=== PATIENT | male | born 1955 | race Caucasian/White ===

== ENCOUNTER → 2017-11-24 | Outpatient (CLI) | payer MEDICARE, OTHER ==
[~2017-11-24] MED LIST: ANTIBIOTIC; Antivert25 MG PO; BACL10 PO; BACL20 PO; CIPRO500 MG PO; CITA10S; CLON.1 PO; CYCL10 PO; FERR325; Flagyl500 MG PO; GABA300; HYDCOR1TC TOP; HYDPAM25 PO; HYDRA50 PO; HYOS.125 SL; HYOSCYAMINE0.375 M1 PO; Hygroton50 MG; MEDICAL MARIJUANA; NEOPOLHCSU LEFTEAR; OLAN10 PO; OLAN20 MM; OMEPPI 40 MG-11 EACH PO; OXYC5; OXYC80ER; OXYM.05NI; PROM25; PROM25 PO; PROM25S; Percocet 5-3251 EACH PO; SULTRISS PO; TAMS.4ER PO; TOBR.3OPSO; TOLT4 PO; Zofran Odt8 MG SL; Zyprexa15 MG PO
== END ==
LOC: LAB SRC 11:50
DX: S91.302A Unspecified open wound, left foot, initial encounter (principal)
CPT/HCPCS: 87070; 87077; 87147; 87186; 87205

== ENCOUNTER → 2017-12-28 | Outpatient (CLI) | payer MEDICARE, OTHER | END | disposition home or self-care (01) | LOC: LAB 10:12 | DX: L98.499 Non-pressure chronic ulcer of skin of other sites with unspecified severity (principal) | CPT/HCPCS: 87070; 87077; 87147; 87186; 87205 ==

== ENCOUNTER → 2018-02-15 | Outpatient (CLI) | payer MEDICARE, OTHER ==
[~2018-02-15] MED LIST changes: -GABA300; -NEOPOLHCSU LEFTEAR; -OLAN10 PO; -OMEPPI 40 MG-11 EACH PO; -OXYM.05NI; -Percocet 5-3251 EACH PO; -TOLT4 PO
== END ==
LOC: LAB SHORT 13:42 → LAB EV 13:42
DX: L03.119 Cellulitis of unspecified part of limb (principal)
CPT/HCPCS: 87070; 87077; 87147; 87186; 87205

== ENCOUNTER → 2018-02-24 | Outpatient (CLI) | payer MEDICARE, OTHER | END | disposition home or self-care (01) | LOC: LAB SHORT 17:44 → LAB 17:44 | DX: S91.302A Unspecified open wound, left foot, initial encounter (principal) | CPT/HCPCS: 87070; 87075; 87077; 87186; 87205 ==

== ENCOUNTER 2018-05-04 16:46 | Emergency (ER) | payer MEDICARE, OTHER ==
[~2018-05-04] VITALS: Ht 182.9 cm; Wt 59.0 kg
[2018-05-04] MEDS ORDERED: BACL10 PO (17:22)
[2018-05-04] MEDS ORDERED: OLAN10 PO (17:22)
[2018-05-04] MEDS ORDERED: HYOS.125 SL (17:23)
[2018-05-04] MEDS ORDERED: OMEPPI 40 MG-11 EACH PO (17:24)
[2018-05-04] MEDS ORDERED: TOLT4 PO (17:25)
[2018-05-04] MEDS ORDERED: NEOPOLHCSU LEFTEAR (17:36)
== END 2018-05-04 17:58 | disposition home or self-care (01) ==
LOC: ER 16:46
DX: H60.92 Unspecified otitis externa, left ear (principal); Z88.8 Allergy status to other drugs, medicaments and biological substances; Z79.899 Other long term (current) drug therapy; F32.9 Major depressive disorder, single episode, unspecified; F41.9 Anxiety disorder, unspecified; F17.200 Nicotine dependence, unspecified, uncomplicated
CPT/HCPCS: 99282

== ENCOUNTER → 2018-06-22 | Outpatient (CLI) | payer MEDICARE, OTHER ==
[~2018-06-22] MED LIST changes: +NEOPOLHCSU LEFTEAR; +OLAN10 PO; +OMEPPI 40 MG-11 EACH PO; +TOLT4 PO
== END | disposition home or self-care (01) ==
LOC: LAB SHORT 08:42 → LAB 08:42
DX: L08.0 Pyoderma (principal)
CPT/HCPCS: 87070; 87077; 87147; 87186; 87205

== ENCOUNTER 2018-07-02 10:14 | Emergency (ER) | payer MEDICARE, OTHER ==
[~2018-07-02] VITALS: Ht 182.9 cm; Wt 54.4 kg
[2018-07-02] MEDS ORDERED: OXYM.05NI (10:56)
[2018-07-02] MEDS ORDERED: Percocet 5-3251 EACH PO (14:14)
== END 2018-07-02 11:01 | disposition home or self-care (01) ==
LOC: ER 10:14
DX: R04.0 Epistaxis (principal); Z88.8 Allergy status to other drugs, medicaments and biological substances; Z79.899 Other long term (current) drug therapy; F32.9 Major depressive disorder, single episode, unspecified; F41.9 Anxiety disorder, unspecified; F17.200 Nicotine dependence, unspecified, uncomplicated
CPT/HCPCS: 99283

== ENCOUNTER 2018-07-02 13:30 | Emergency (ER) | payer MEDICARE, OTHER ==
[~2018-07-02] VITALS: Ht 182.9 cm; Wt 54.4 kg
[~2018-07-02 13:30] MED LIST changes: +OXYM.05NI
[2018-07-02] MEDS ORDERED: Percocet 5-3251 EACH PO (14:14)
== END 2018-07-02 14:55 | disposition left against medical advice (07) ==
LOC: ER 13:30
DX: R04.0 Epistaxis (principal); Z88.8 Allergy status to other drugs, medicaments and biological substances; Z79.899 Other long term (current) drug therapy
CPT/HCPCS: 99283-25

== ENCOUNTER 2018-09-04 18:15 | Emergency (ER) | payer MEDICARE, OTHER ==
[~2018-09-04] VITALS: Ht 182.9 cm; Wt 52.2 kg
[~2018-09-04 18:15] MED LIST changes: +Percocet 5-3251 EACH PO
[2018-09-04 18:50] LABS: BASOPHILS ABSOLUTE AUTO 0.03 K/mm3 (0.00-0.23); BASOPHILS PERCENT AUTO 0 % (0-2); EOSINOPHILS ABSOLUTE AUTO 0.09 K/mm3 (0.00-0.68); EOSINOPHILS PERCENT AUTO 1 % (0-6); Hematocrit 46.5 % (37.0-53.0); Hemoglobin 16.2 g/dL (13.5-17.5); IMMATURE GRAN ABSOLUTE AUTO 0.01 K/mm3 (0.00-0.10); IMMATURE GRAN PERCENT AUTO 0 % (0-1); LYMPHOCYTES ABSOLUTE AUTO 1.19 K/mm3 (0.84-5.20); LYMPHOCYTES PERCENT AUTO 16 % (21-46); MONOCYTES ABSOLUTE AUTO 0.63 K/mm3 (0.16-1.47); MONOCYTES PERCENT AUTO 8 % (4-13); Mean Corpuscular HGB 31.3 pg (26.0-34.0); Mean Corpuscular HGB Conc 34.8 g/dL (31.5-36.5); Mean Corpuscular Volume 90 fL (80-100); Mean Platelet Volume 8.8 fL (9.1-12.4); NEUTROPHILS ABSOLUTE AUTO 5.72 K/mm3 (1.96-9.15); NEUTROPHILS PERCENT AUTO 75 % (41-73); Platelet Count 314 K/mm3 (150-400); RDW Coefficient Variation 12.8 % (11.7-14.2); RDW Standard Deviation 42.5 fL (35.1-46.3); Red Blood Cell Count 5.17 M/mm3 (4.30-5.90); White Blood Cell Count 7.67 K/mm3 (4.00-11.30)
[2018-09-04 19:06] LABS: Alanine Aminotransfer (ALT/SGP 24 U/L (12-78); Albumin, Blood 4.3 g/dL (3.4-5.0); Albumin/Globulin Ratio 1.2 (0.8-1.8); Alk Phos 93 U/L (50-136); Anion Gap 9 mmol/L (6-16); Aspartate Aminotrans (AST/SGOT 17 U/L (12-37); Bilirubin, Total 1.5 mg/dL (0.1-1.0); Blood Urea Nitrogen 13 mg/dL (8-24); Bun/Creatinine Ratio 19.9 (12.0-20.0); CO2, Blood 26 mmol/L (21-32); Calcium, Blood 9.8 mg/dL (8.5-10.1); Chloride, Blood 103 mmol/L (98-108); Creatinine, Blood 0.65 mg/dL (0.60-1.20); Globulin, Blood 3.6 g/dL (2.2-4.0); Glomerular Filtration Rate >60 (60-); Glucose, Blood 123 mg/dL (70-99); Potassium, Blood 3.3 mmol/L (3.5-5.5); Sodium, Blood 138 mmol/L (136-145); Total Protein, Blood 7.9 g/dL (6.4-8.2)
[2018-09-04] MEDS ORDERED: GABA300 (19:35)
== END 2018-09-04 19:46 | disposition home or self-care (01) ==
LOC: ER 18:15
PROVIDERS: Emergency Medicine
DX: R53.1 Weakness (principal); Z88.8 Allergy status to other drugs, medicaments and biological substances; Z79.899 Other long term (current) drug therapy; F17.200 Nicotine dependence, unspecified, uncomplicated
CPT/HCPCS: 36415; 80053; 85025; 93005; 93010; 99283-25

== ENCOUNTER → 2018-10-11 | Outpatient (CLI) | payer MEDICARE, OTHER ==
[~2018-10-11] MED LIST changes: +GABA300
== END | disposition home or self-care (01) ==
LOC: PLD 08:13 → LAB SHORT 08:13
DX: L98.9 Disorder of the skin and subcutaneous tissue, unspecified (principal); L90.5 Scar conditions and fibrosis of skin
CPT/HCPCS: 88305; 88312

== ENCOUNTER 2019-05-04 18:50 | Emergency (ER) | payer MEDICARE, OTHER ==
[~2019-05-04] VITALS: Ht 182.9 cm; Wt 50.8 kg
[~2019-05-04 18:50] MED LIST changes: -GABA300; +GABA300 PO
[2019-05-04] MEDS ORDERED: BACLOFEN5 MG PO (19:26)
[2019-05-04] MEDS ORDERED: OLAN2.5 PO (19:27)
[2019-05-04] MEDS ORDERED: PANT20 PO (19:27)
== END 2019-05-04 20:27 | disposition home or self-care (01) ==
LOC: ER 18:50
DX: S60.222A Contusion of left hand, initial encounter (principal); Z88.8 Allergy status to other drugs, medicaments and biological substances; Z79.899 Other long term (current) drug therapy; G62.9 Polyneuropathy, unspecified; W18.30XA Fall on same level, unspecified, initial encounter
CPT/HCPCS: 29125; 73130; 99283-25; L3917

== ENCOUNTER 2019-07-10 19:59 | Emergency (ER) | payer MEDICARE, OTHER ==
[~2019-07-10] VITALS: Ht 182.9 cm; Wt 55.3 kg
[~2019-07-10 19:59] MED LIST changes: +BACLOFEN5 MG PO; +OLAN2.5 PO; +PANT20 PO
== END 2019-07-10 21:30 | disposition left against medical advice (07) ==
LOC: ER 19:59
DX: I82.432 Acute embolism and thrombosis of left popliteal vein (principal); Z87.442 Personal history of urinary calculi; F17.200 Nicotine dependence, unspecified, uncomplicated; Z88.8 Allergy status to other drugs, medicaments and biological substances; Z79.899 Other long term (current) drug therapy
CPT/HCPCS: 93971; 99282

== ENCOUNTER 2019-07-11 12:04 | Emergency (ER) | payer MEDICARE, OTHER ==
[~2019-07-11] VITALS: Ht 182.9 cm; Wt 55.7 kg
[2019-07-11 12:45] LABS: BASOPHILS ABSOLUTE AUTO 0.06 K/mm3 (0.00-0.23); BASOPHILS PERCENT AUTO 1 % (0-2); EOSINOPHILS ABSOLUTE AUTO 0.13 K/mm3 (0.00-0.68); EOSINOPHILS PERCENT AUTO 2 % (0-6); Hematocrit 37.1 % (37.0-53.0); Hemoglobin 11.9 g/dL (13.5-17.5); IMMATURE GRAN ABSOLUTE AUTO 0.02 K/mm3 (0.00-0.10); IMMATURE GRAN PERCENT AUTO 0 % (0-1); LYMPHOCYTES ABSOLUTE AUTO 1.12 K/mm3 (0.84-5.20); LYMPHOCYTES PERCENT AUTO 16 % (21-46); MONOCYTES ABSOLUTE AUTO 0.72 K/mm3 (0.16-1.47); MONOCYTES PERCENT AUTO 10 % (4-13); Mean Corpuscular HGB 26.8 pg (26.0-34.0); Mean Corpuscular HGB Conc 32.1 g/dL (31.5-36.5); Mean Corpuscular Volume 84 fL (80-100); Mean Platelet Volume 8.8 fL (9.1-12.4); NEUTROPHILS ABSOLUTE AUTO 4.85 K/mm3 (1.96-9.15); NEUTROPHILS PERCENT AUTO 70 % (41-73); Platelet Count 322 K/mm3 (150-400); RDW Coefficient Variation 14.7 % (11.7-14.2); RDW Standard Deviation 45.1 fL (35.1-46.3); Red Blood Cell Count 4.44 M/mm3 (4.30-5.90)
[2019-07-11 12:59] LABS: International Normalized Ratio 0.97; Prothrombin Time Results 10.3 Sec (9.7-11.5)
[2019-07-11 13:07] LABS: Alanine Aminotransfer (ALT/SGP 22 U/L (12-78); Albumin, Blood 3.5 g/dL (3.4-5.0); Alk Phos 150 U/L (50-136); Anion Gap 7 mmol/L (6-16); Aspartate Aminotrans (AST/SGOT 16 U/L (12-37); Bilirubin, Total 0.7 mg/dL (0.1-1.0); Blood Urea Nitrogen 22 mg/dL (8-24); Bun/Creatinine Ratio 27.9 (12.0-20.0); CO2, Blood 25 mmol/L (21-32); Calcium, Blood 9.3 mg/dL (8.5-10.1); Chloride, Blood 108 mmol/L (98-108); Creatinine, Blood 0.79 mg/dL (0.60-1.20); Globulin, Blood 3.5 g/dL (2.2-4.0); Glomerular Filtration Rate >60 (60-); Glucose, Blood 79 mg/dL (70-99); Potassium, Blood 4.1 mmol/L (3.5-5.5); Sodium, Blood 140 mmol/L (136-145)
== END 2019-07-11 14:59 | disposition home or self-care (01) ==
LOC: ER 12:04
PROVIDERS: Physician Assistant
DX: I82.402 Acute embolism and thrombosis of unspecified deep veins of left lower extremity (principal); F17.200 Nicotine dependence, unspecified, uncomplicated; Z87.442 Personal history of urinary calculi
CPT/HCPCS: 36415; 70450; 80053; 85025; 85610; 99284-25

== ENCOUNTER 2019-07-28 14:53 | Emergency (ER) | payer MEDICARE, OTHER ==
[~2019-07-28] VITALS: Ht 182.9 cm; Wt 54.4 kg
[2019-07-28 15:36] LABS: BASOPHILS ABSOLUTE AUTO 0.05 K/mm3 (0.00-0.23); BASOPHILS PERCENT AUTO 1 % (0-2); EOSINOPHILS ABSOLUTE AUTO 0.19 K/mm3 (0.00-0.68); EOSINOPHILS PERCENT AUTO 2 % (0-6); Hematocrit 38.5 % (37.0-53.0); Hemoglobin 12.5 g/dL (13.5-17.5); IMMATURE GRAN ABSOLUTE AUTO 0.03 K/mm3 (0.00-0.10); IMMATURE GRAN PERCENT AUTO 0 % (0-1); LYMPHOCYTES ABSOLUTE AUTO 1.71 K/mm3 (0.84-5.20); LYMPHOCYTES PERCENT AUTO 18 % (21-46); MONOCYTES ABSOLUTE AUTO 1.27 K/mm3 (0.16-1.47); MONOCYTES PERCENT AUTO 14 % (4-13); Mean Corpuscular HGB 27.2 pg (26.0-34.0); Mean Corpuscular HGB Conc 32.5 g/dL (31.5-36.5); Mean Corpuscular Volume 84 fL (80-100); Mean Platelet Volume 8.8 fL (9.1-12.4); NEUTROPHILS ABSOLUTE AUTO 6.09 K/mm3 (1.96-9.15); NEUTROPHILS PERCENT AUTO 65 % (41-73); Platelet Count 323 K/mm3 (150-400); RDW Coefficient Variation 15.1 % (11.7-14.2); RDW Standard Deviation 46.1 fL (35.1-46.3); Red Blood Cell Count 4.59 M/mm3 (4.30-5.90); White Blood Cell Count 9.34 K/mm3 (4.00-11.30)
[2019-07-28 16:01] LABS: Alanine Aminotransfer (ALT/SGP 20 U/L (12-78); Albumin, Blood 3.5 g/dL (3.4-5.0); Alk Phos 119 U/L (50-136); Anion Gap 5 mmol/L (6-16); Aspartate Aminotrans (AST/SGOT 17 U/L (12-37); Bilirubin, Total 0.5 mg/dL (0.1-1.0); Blood Urea Nitrogen 33 mg/dL (8-24); Bun/Creatinine Ratio 29.5 (12.0-20.0); CO2, Blood 27 mmol/L (21-32); Calcium, Blood 9.5 mg/dL (8.5-10.1); Chloride, Blood 104 mmol/L (98-108); Creatinine, Blood 1.12 mg/dL (0.60-1.20); Globulin, Blood 3.6 g/dL (2.2-4.0); Glomerular Filtration Rate >60 (60-); Glucose, Blood 86 mg/dL (70-99); Potassium, Blood 3.8 mmol/L (3.5-5.5); Sodium, Blood 136 mmol/L (136-145); Total Protein, Blood 7.1 g/dL (6.4-8.2)
[2019-07-28] MEDS ORDERED: Flagyl500 MG PO (18:19)
[2019-07-28] MEDS ORDERED: Cipro500 MG PO (18:19)
== END 2019-07-28 18:49 | disposition home or self-care (01) ==
LOC: ER 14:53
PROVIDERS: Physician Assistant
DX: K44.9 Diaphragmatic hernia without obstruction or gangrene (principal); F32.9 Major depressive disorder, single episode, unspecified; F41.9 Anxiety disorder, unspecified; F20.0 Paranoid schizophrenia; F17.200 Nicotine dependence, unspecified, uncomplicated; D64.9 Anemia, unspecified; Z87.442 Personal history of urinary calculi; Z88.8 Allergy status to other drugs, medicaments and biological substances; Z79.899 Other long term (current) drug therapy
CPT/HCPCS: 36415; 71045; 74177; 80053; 83690; 85025; 86850; 86900; 86901; 93005; 93010; 99284-25; Q9967

== ENCOUNTER 2019-08-04 15:34 | Day surgery (SDC) | payer MEDICARE, OTHER ==
[~2019-08-04] VITALS: Wt 57.8 kg
[~2019-08-04 15:34] MED LIST changes: +Cipro500 MG PO
[2019-08-04] MEDS ORDERED: GABA100 PO (16:00)
--- NOTE | 2019-08-04 16:07 | NUR ---
DOSE GIVEN WAS 85MG.
[2019-08-04] MEDS ORDERED: DICLO GEL1 EACH TOP (16:41)
[2019-08-04] MEDS ORDERED: Prinivil10 MG PO (16:42)
[2019-08-04] MEDS ORDERED: FURO20 PO (16:44)
[2019-08-04] MEDS ORDERED: K-Dur20 MEQ PO (16:45)
[2019-08-04] MEDS ORDERED: WARF5 PO (16:46)
[2019-08-04] MEDS ORDERED: SPIR25 PO (16:47)
== END 2019-08-04 16:25 | disposition home or self-care (01) ==
LOC: ATC 15:34
DX: I82.402 Acute embolism and thrombosis of unspecified deep veins of left lower extremity (principal); I10 Essential (primary) hypertension; D50.9 Iron deficiency anemia, unspecified; M17.0 Bilateral primary osteoarthritis of knee; N40.0 Benign prostatic hyperplasia without lower urinary tract symptoms; Z86.73 Personal history of transient ischemic attack (TIA), and cerebral infarction without residual deficits; Z79.899 Other long term (current) drug therapy; Z79.01 Long term (current) use of anticoagulants
CPT/HCPCS: 96372; J1650

== ENCOUNTER 2019-08-05 07:24 | Day surgery (SDC) | payer MEDICARE, OTHER ==
[~2019-08-05 07:24] MED LIST changes: +DICLO GEL1 EACH TOP; +FURO20 PO; +GABA100 PO; +K-Dur20 MEQ PO; +Prinivil10 MG PO; +SPIR25 PO; +WARF5 PO
--- NOTE | 2019-08-05 09:07 | NUR ---
INR TODAY WAS 1.1.
== END 2019-08-05 08:59 | disposition home or self-care (01) ==
LOC: ATC 07:24
DX: I82.402 Acute embolism and thrombosis of unspecified deep veins of left lower extremity (principal); I10 Essential (primary) hypertension; D50.9 Iron deficiency anemia, unspecified; M17.0 Bilateral primary osteoarthritis of knee; N40.0 Benign prostatic hyperplasia without lower urinary tract symptoms; Z86.73 Personal history of transient ischemic attack (TIA), and cerebral infarction without residual deficits; Z79.899 Other long term (current) drug therapy; Z79.01 Long term (current) use of anticoagulants; Z88.8 Allergy status to other drugs, medicaments and biological substances
CPT/HCPCS: 36416; 51798; 85610; 96372; J1650

== ENCOUNTER 2019-08-06 08:24 | Day surgery (SDC) | payer MEDICARE, OTHER ==
--- NOTE | 2019-07-28 15:49 | NUR ---
Leslye in admitting called and stated pt is in the ER. Order for lovenox faxed to ER. Spoke with Rc in ER who stated she will place order on pt's chart so he can get his lovenox injection in the ER today.
--- NOTE | 2019-08-06 09:12 | NUR ---
FINGERSTICK INR = 1.2 TODAY.
[2019-08-07] MEDS ORDERED: ENOX100I SC (09:20)
== END 2019-08-06 08:40 | disposition home or self-care (01) ==
LOC: ATC 08:24
DX: I82.402 Acute embolism and thrombosis of unspecified deep veins of left lower extremity (principal); I10 Essential (primary) hypertension; D50.9 Iron deficiency anemia, unspecified; Z88.8 Allergy status to other drugs, medicaments and biological substances
CPT/HCPCS: 36416; 85610; 96372; J1650

== ENCOUNTER 2019-08-07 01:06 | Day surgery (SDC) | payer MEDICARE, OTHER ==
[2019-08-07] MEDS ORDERED: ENOX100I SC (09:20)
--- NOTE | 2019-08-07 09:22 | NUR ---
FINGERSTICK INR TODAY IS 1.8 MEDICATION GIVEN PER ORDERS
== END 2019-08-07 22:38 | disposition home or self-care (01) ==
LOC: ATC 01:06
DX: I82.402 Acute embolism and thrombosis of unspecified deep veins of left lower extremity (principal); I10 Essential (primary) hypertension; N40.0 Benign prostatic hyperplasia without lower urinary tract symptoms; G60.9 Hereditary and idiopathic neuropathy, unspecified; F51.05 Insomnia due to other mental disorder; K58.9 Irritable bowel syndrome, unspecified; N52.9 Male erectile dysfunction, unspecified; F42.9 Obsessive-compulsive disorder, unspecified; D50.9 Iron deficiency anemia, unspecified; Z79.01 Long term (current) use of anticoagulants; Z79.899 Other long term (current) drug therapy; Z88.8 Allergy status to other drugs, medicaments and biological substances
CPT/HCPCS: 36416; 85610; 96372; J1650

== ENCOUNTER 2019-08-08 00:41 | Day surgery (SDC) | payer MEDICARE, OTHER ==
[~2019-08-08 00:41] MED LIST changes: +ENOX100I SC
--- NOTE | 2019-08-08 09:05 | NUR ---
PT STATES HE IS VERY ILL TODAY. HE IS HAVING ALOT OF PAIN IN ABD. PT STATES HE THINKS HE IS TAKING TOO MANY ANTIBIOTICS. INSTRUCTED TO GO TO ER IF PAIN GETS WORST. PT STATES HE HAS PANCREATITIS.
== END 2019-08-08 09:05 | disposition home or self-care (01) ==
LOC: ATC 00:41
DX: I82.402 Acute embolism and thrombosis of unspecified deep veins of left lower extremity (principal); I10 Essential (primary) hypertension; D50.9 Iron deficiency anemia, unspecified; F45.0 Somatization disorder; F42.9 Obsessive-compulsive disorder, unspecified; N52.9 Male erectile dysfunction, unspecified; F51.05 Insomnia due to other mental disorder; G60.9 Hereditary and idiopathic neuropathy, unspecified; F22 Delusional disorders; N40.0 Benign prostatic hyperplasia without lower urinary tract symptoms; Z88.8 Allergy status to other drugs, medicaments and biological substances; Z79.899 Other long term (current) drug therapy
CPT/HCPCS: 36416; 85610; 99211; J1650

== ENCOUNTER 2019-08-24 11:22 | Emergency (ER) | payer MEDICARE, OTHER ==
[~2019-08-24] VITALS: Ht 182.9 cm; Wt 56.7 kg
[2019-08-24 12:11] LABS: BASOPHILS ABSOLUTE AUTO 0.06 K/mm3 (0.00-0.23); BASOPHILS PERCENT AUTO 1 % (0-2); EOSINOPHILS ABSOLUTE AUTO 0.18 K/mm3 (0.00-0.68); EOSINOPHILS PERCENT AUTO 3 % (0-6); Hematocrit 36.3 % (37.0-53.0); Hemoglobin 11.7 g/dL (13.5-17.5); IMMATURE GRAN ABSOLUTE AUTO 0.02 K/mm3 (0.00-0.10); IMMATURE GRAN PERCENT AUTO 0 % (0-1); LYMPHOCYTES ABSOLUTE AUTO 0.99 K/mm3 (0.84-5.20); LYMPHOCYTES PERCENT AUTO 15 % (21-46); MONOCYTES ABSOLUTE AUTO 0.78 K/mm3 (0.16-1.47); MONOCYTES PERCENT AUTO 12 % (4-13); Mean Corpuscular HGB 25.9 pg (26.0-34.0); Mean Corpuscular HGB Conc 32.2 g/dL (31.5-36.5); Mean Corpuscular Volume 80 fL (80-100); Mean Platelet Volume 8.9 fL (9.1-12.4); NEUTROPHILS ABSOLUTE AUTO 4.63 K/mm3 (1.96-9.15); NEUTROPHILS PERCENT AUTO 70 % (41-73); Platelet Count 301 K/mm3 (150-400); RDW Coefficient Variation 15.2 % (11.7-14.2); RDW Standard Deviation 44.1 fL (35.1-46.3); Red Blood Cell Count 4.52 M/mm3 (4.30-5.90); White Blood Cell Count 6.66 K/mm3 (4.00-11.30)
[2019-08-24 12:16] LABS: Source, Urine Catheter
[2019-08-24 12:19] LABS: Bilirubin, Urine Neg (Neg); Blood, Urine Neg (Neg); Glucose Qualitative, Urine Neg (Neg); Ketones, Urine Neg (Neg); Leukocyte Esterase, Urine Neg (Neg); Nitrite, Urine Neg (Neg); Protein, Urine Neg (Neg); Urobilinogen, Urine NORM (Normal)
[2019-08-24 12:29] LABS: Alanine Aminotransfer (ALT/SGP 24 U/L (12-78); Albumin, Blood 3.3 g/dL (3.4-5.0); Albumin/Globulin Ratio 0.9 (0.8-1.8); Alk Phos 110 U/L (50-136); Anion Gap 7 mmol/L (6-16); Aspartate Aminotrans (AST/SGOT 24 U/L (12-37); Bilirubin, Total 0.4 mg/dL (0.1-1.0); Blood Urea Nitrogen 21 mg/dL (8-24); Bun/Creatinine Ratio 26.4 (12.0-20.0); CO2, Blood 26 mmol/L (21-32); Calcium, Blood 9.1 mg/dL (8.5-10.1); Chloride, Blood 107 mmol/L (98-108); Globulin, Blood 3.7 g/dL (2.2-4.0); Glomerular Filtration Rate >60 (60-); Glucose, Blood 141 mg/dL (70-99); Potassium, Blood 3.3 mmol/L (3.5-5.5); Sodium, Blood 140 mmol/L (136-145)
[2019-08-24 12:37] LABS: Appearance, Urine Clear (Clear); Color, Urine Pale Yellow (P-Yellow)
[2019-08-24] MEDS ORDERED: Flagyl500 MG PO (13:38)
[2019-08-24] MEDS ORDERED: Cipro500 MG PO (13:38)
== END 2019-08-24 13:47 | disposition home or self-care (01) ==
LOC: ER 11:22
PROVIDERS: Physician Assistant
DX: K52.9 Noninfective gastroenteritis and colitis, unspecified (principal); Z88.8 Allergy status to other drugs, medicaments and biological substances; Z79.899 Other long term (current) drug therapy; Z79.01 Long term (current) use of anticoagulants; F32.9 Major depressive disorder, single episode, unspecified; F41.9 Anxiety disorder, unspecified; F20.0 Paranoid schizophrenia; F17.200 Nicotine dependence, unspecified, uncomplicated
CPT/HCPCS: 36415; 74176; 80053; 81003; 83690; 85025; 99284-25

== ENCOUNTER 2019-08-25 18:45 | Emergency (ER) | payer MEDICARE, OTHER ==
[~2019-08-25] VITALS: Ht 182.9 cm; Wt 56.7 kg
== END 2019-08-25 20:16 | disposition home or self-care (01) ==
LOC: ER 18:45
DX: R04.0 Epistaxis (principal); M79.81 Nontraumatic hematoma of soft tissue; R79.1 Abnormal coagulation profile; F17.210 Nicotine dependence, cigarettes, uncomplicated; Z87.442 Personal history of urinary calculi; Z88.8 Allergy status to other drugs, medicaments and biological substances; Z79.01 Long term (current) use of anticoagulants
CPT/HCPCS: 99282

== ENCOUNTER 2019-08-26 00:45 | Day surgery (SDC) | payer MEDICARE, OTHER | END 2019-08-26 23:19 | disposition home or self-care (01) | LOC: WOUND 00:45 | DX: I82.402 Acute embolism and thrombosis of unspecified deep veins of left lower extremity (principal); I73.9 Peripheral vascular disease, unspecified; F42.9 Obsessive-compulsive disorder, unspecified; I10 Essential (primary) hypertension; M19.90 Unspecified osteoarthritis, unspecified site; Z88.8 Allergy status to other drugs, medicaments and biological substances; F17.210 Nicotine dependence, cigarettes, uncomplicated | CPT/HCPCS: G0463 ==

== ENCOUNTER 2019-09-26 09:32 | Day surgery (SDC) | payer MEDICARE, OTHER ==
[~2019-09-26 09:32] MED LIST changes: +Hydrocodone-Ap1 EA23 PO; +Zofran4 MG PO
== END 2019-09-26 23:14 | disposition home or self-care (01) ==
LOC: WOUND 09:32
DX: I82.432 Acute embolism and thrombosis of left popliteal vein (principal); I82.4Z2 Acute embolism and thrombosis of unspecified deep veins of left distal lower extremity; I82.812 Embolism and thrombosis of superficial veins of left lower extremity; I73.9 Peripheral vascular disease, unspecified; I10 Essential (primary) hypertension; M19.90 Unspecified osteoarthritis, unspecified site; F42.9 Obsessive-compulsive disorder, unspecified; D64.9 Anemia, unspecified; G62.9 Polyneuropathy, unspecified; Z79.899 Other long term (current) drug therapy; Z88.8 Allergy status to other drugs, medicaments and biological substances
CPT/HCPCS: G0463

== ENCOUNTER 2019-11-11 15:05 | Day surgery (SDC) | payer MEDICARE, OTHER ==
--- NOTE | 2019-11-11 15:45 | NUR ---
FINGERSTICK INR TODAY IS 1.2 MEDICATION GIVEN PER ORDERS
[2019-11-11] MEDS ORDERED: WARF3 PO (16:17)
== END 2019-11-11 23:23 | disposition home or self-care (01) ==
LOC: ATC 15:05
DX: I82.532 Chronic embolism and thrombosis of left popliteal vein (principal); I82.813 Embolism and thrombosis of superficial veins of lower extremities, bilateral; I83.93 Asymptomatic varicose veins of bilateral lower extremities; K21.9 Gastro-esophageal reflux disease without esophagitis; E11.9 Type 2 diabetes mellitus without complications; N40.0 Benign prostatic hyperplasia without lower urinary tract symptoms; F17.210 Nicotine dependence, cigarettes, uncomplicated; J44.9 Chronic obstructive pulmonary disease, unspecified; D50.9 Iron deficiency anemia, unspecified; I10 Essential (primary) hypertension; Z88.8 Allergy status to other drugs, medicaments and biological substances; Z79.01 Long term (current) use of anticoagulants; Z79.51 Long term (current) use of inhaled steroids; Z79.899 Other long term (current) drug therapy
CPT/HCPCS: 36416; 85610; 96372; J1650

== ENCOUNTER 2019-11-12 08:38 | Day surgery (SDC) | payer MEDICARE, OTHER ==
[~2019-11-12 08:38] MED LIST changes: +WARF3 PO
--- NOTE | 2019-11-12 09:06 | NUR ---
INR 1.4 TODAY.
== END 2019-11-12 08:50 | disposition home or self-care (01) ==
LOC: ATC 08:38
DX: I82.532 Chronic embolism and thrombosis of left popliteal vein (principal); I82.813 Embolism and thrombosis of superficial veins of lower extremities, bilateral; I87.393 Chronic venous hypertension (idiopathic) with other complications of bilateral lower extremity; K21.9 Gastro-esophageal reflux disease without esophagitis; E11.9 Type 2 diabetes mellitus without complications; N40.0 Benign prostatic hyperplasia without lower urinary tract symptoms; F17.210 Nicotine dependence, cigarettes, uncomplicated; J44.9 Chronic obstructive pulmonary disease, unspecified; D50.9 Iron deficiency anemia, unspecified; I10 Essential (primary) hypertension; Z88.8 Allergy status to other drugs, medicaments and biological substances; Z79.01 Long term (current) use of anticoagulants; Z79.51 Long term (current) use of inhaled steroids; Z79.899 Other long term (current) drug therapy
CPT/HCPCS: 36416; 85610; 96372; J1650

== ENCOUNTER 2019-11-13 08:30 | Day surgery (SDC) | payer MEDICARE, OTHER ==
--- NOTE | 2019-11-13 08:58 | NUR ---
FINGERSTICK INR 1.6 TODAY
[2019-11-14] MEDS ORDERED: ENOX120I SC (11:39)
== END 2019-11-13 08:42 | disposition home or self-care (01) ==
LOC: ATC 08:30
DX: I82.532 Chronic embolism and thrombosis of left popliteal vein (principal); I82.813 Embolism and thrombosis of superficial veins of lower extremities, bilateral; I83.93 Asymptomatic varicose veins of bilateral lower extremities; K21.9 Gastro-esophageal reflux disease without esophagitis; E11.9 Type 2 diabetes mellitus without complications; N40.0 Benign prostatic hyperplasia without lower urinary tract symptoms; F17.210 Nicotine dependence, cigarettes, uncomplicated; J44.9 Chronic obstructive pulmonary disease, unspecified; D50.9 Iron deficiency anemia, unspecified; I10 Essential (primary) hypertension; Z88.8 Allergy status to other drugs, medicaments and biological substances; Z79.01 Long term (current) use of anticoagulants; Z79.51 Long term (current) use of inhaled steroids; Z79.899 Other long term (current) drug therapy
CPT/HCPCS: 36416; 85610; 96372; J1650

== ENCOUNTER 2019-11-14 00:14 | Day surgery (SDC) | payer MEDICARE, OTHER ==
[2019-11-14] MEDS ORDERED: ENOX120I SC (11:39)
--- NOTE | 2019-11-14 11:40 | NUR ---
FINGERSTICK INR 1.8 MEDICATION GIVEN PER ORDER.
== END 2019-11-14 11:36 | disposition home or self-care (01) ==
LOC: ATC 00:14
DX: I82.532 Chronic embolism and thrombosis of left popliteal vein (principal); I82.813 Embolism and thrombosis of superficial veins of lower extremities, bilateral; I83.93 Asymptomatic varicose veins of bilateral lower extremities; K21.9 Gastro-esophageal reflux disease without esophagitis; E11.9 Type 2 diabetes mellitus without complications; N40.0 Benign prostatic hyperplasia without lower urinary tract symptoms; F17.210 Nicotine dependence, cigarettes, uncomplicated; J44.9 Chronic obstructive pulmonary disease, unspecified; D50.9 Iron deficiency anemia, unspecified; I10 Essential (primary) hypertension; Z88.8 Allergy status to other drugs, medicaments and biological substances; Z79.01 Long term (current) use of anticoagulants; Z95.1 Presence of aortocoronary bypass graft; Z79.899 Other long term (current) drug therapy
CPT/HCPCS: 36416; 85610; 96372; J1650

== ENCOUNTER 2019-11-15 00:01 | Day surgery (SDC) | payer MEDICARE, OTHER ==
[~2019-11-15 00:01] MED LIST changes: +ENOX120I SC
== END 2019-11-15 23:02 | disposition home or self-care (01) ==
LOC: ATC 00:01
DX: I82.532 Chronic embolism and thrombosis of left popliteal vein (principal); I82.813 Embolism and thrombosis of superficial veins of lower extremities, bilateral; I83.93 Asymptomatic varicose veins of bilateral lower extremities; K21.9 Gastro-esophageal reflux disease without esophagitis; D64.9 Anemia, unspecified; E11.9 Type 2 diabetes mellitus without complications; N40.0 Benign prostatic hyperplasia without lower urinary tract symptoms; F17.210 Nicotine dependence, cigarettes, uncomplicated; Z79.01 Long term (current) use of anticoagulants; Z79.899 Other long term (current) drug therapy; Z88.8 Allergy status to other drugs, medicaments and biological substances
CPT/HCPCS: J1650

== ENCOUNTER 2019-11-16 00:11 | Day surgery (SDC) | payer MEDICARE, OTHER | END 2019-11-16 08:59 | disposition home or self-care (01) | LOC: ATC 00:11 | DX: I82.523 Chronic embolism and thrombosis of iliac vein, bilateral (principal); I82.813 Embolism and thrombosis of superficial veins of lower extremities, bilateral; I83.93 Asymptomatic varicose veins of bilateral lower extremities; K21.9 Gastro-esophageal reflux disease without esophagitis; F42.9 Obsessive-compulsive disorder, unspecified; D50.9 Iron deficiency anemia, unspecified; E11.42 Type 2 diabetes mellitus with diabetic polyneuropathy; G47.01 Insomnia due to medical condition; M17.11 Unilateral primary osteoarthritis, right knee; N40.0 Benign prostatic hyperplasia without lower urinary tract symptoms; F17.210 Nicotine dependence, cigarettes, uncomplicated; Z79.01 Long term (current) use of anticoagulants; Z79.899 Other long term (current) drug therapy; Z88.8 Allergy status to other drugs, medicaments and biological substances | CPT/HCPCS: 36416; 85610; 96372; J1650 ==

== ENCOUNTER 2019-11-17 00:09 | Day surgery (SDC) | payer MEDICARE, OTHER | END 2019-11-17 08:57 | disposition home or self-care (01) | LOC: ATC 00:09 | DX: I82.532 Chronic embolism and thrombosis of left popliteal vein (principal); K21.9 Gastro-esophageal reflux disease without esophagitis; E11.9 Type 2 diabetes mellitus without complications; Z88.8 Allergy status to other drugs, medicaments and biological substances; Z79.899 Other long term (current) drug therapy | CPT/HCPCS: 36416; 85610; 99211; J1650 ==

== ENCOUNTER 2019-12-15 14:33 | Emergency (ER) | payer MEDICARE, OTHER ==
[~2019-12-15] VITALS: Ht 182.9 cm; Wt 59.0 kg
[~2019-12-15 14:33] MED LIST changes: +Ativan1 MG PO; +CIPR500; +FERSU300 PO
[2019-12-15 15:58] LABS: Alanine Aminotransfer (ALT/SGP 21 U/L (12-78); Albumin, Blood 3.6 g/dL (3.4-5.0); Albumin/Globulin Ratio 0.9 (0.8-1.8); Alk Phos 90 U/L (50-136); Anion Gap 7 mmol/L (6-16); Aspartate Aminotrans (AST/SGOT 25 U/L (12-37); Bilirubin, Total 0.4 mg/dL (0.1-1.0); Blood Urea Nitrogen 32 mg/dL (8-24); Bun/Creatinine Ratio 31.1 (12.0-20.0); CO2, Blood 25 mmol/L (21-32); Calcium, Blood 9.3 mg/dL (8.5-10.1); Chloride, Blood 106 mmol/L (98-108); Creatinine, Blood 1.03 mg/dL (0.60-1.20); Globulin, Blood 3.8 g/dL (2.2-4.0); Glomerular Filtration Rate >60 (60-); Glucose, Blood 100 mg/dL (70-99); Potassium, Blood 4.1 mmol/L (3.5-5.5); Sodium, Blood 138 mmol/L (136-145); Total Protein, Blood 7.4 g/dL (6.4-8.2)
[2019-12-15 16:07] LABS: BASOPHILS ABSOLUTE AUTO 0.05 K/mm3 (0.00-0.23); BASOPHILS PERCENT AUTO 1 % (0-2); EOSINOPHILS ABSOLUTE AUTO 0.16 K/mm3 (0.00-0.68); EOSINOPHILS PERCENT AUTO 2 % (0-6); Hematocrit 35.2 % (37.0-53.0); Hemoglobin 10.8 g/dL (13.5-17.5); IMMATURE GRAN ABSOLUTE AUTO 0.03 K/mm3 (0.00-0.10); IMMATURE GRAN PERCENT AUTO 0 % (0-1); LYMPHOCYTES ABSOLUTE AUTO 1.12 K/mm3 (0.84-5.20); LYMPHOCYTES PERCENT AUTO 12 % (21-46); MONOCYTES ABSOLUTE AUTO 0.77 K/mm3 (0.16-1.47); MONOCYTES PERCENT AUTO 8 % (4-13); Mean Corpuscular HGB 22.7 pg (26.0-34.0); Mean Corpuscular HGB Conc 30.7 g/dL (31.5-36.5); Mean Corpuscular Volume 74 fL (80-100); NEUTROPHILS ABSOLUTE AUTO 7.03 K/mm3 (1.96-9.15); NEUTROPHILS PERCENT AUTO 77 % (41-73); RDW Coefficient Variation 17.1 % (11.7-14.2); RDW Standard Deviation 45.1 fL (35.1-46.3); Red Blood Cell Count 4.75 M/mm3 (4.30-5.90); White Blood Cell Count 9.16 K/mm3 (4.00-11.30)
[2019-12-15 16:28] LABS: Mean Platelet Volume 9.7 fL (9.1-12.4); Platelet Count 343 K/mm3 (150-400)
== END 2019-12-15 17:00 | disposition left against medical advice (07) ==
LOC: ER 14:33
PROVIDERS: Physician Assistant
DX: Z53.21 Procedure and treatment not carried out due to patient leaving prior to being seen by health care provider (principal); R11.2 Nausea with vomiting, unspecified
CPT/HCPCS: 36415; 80053; 83690; 85025; 93005; 93010

== ENCOUNTER 2020-02-20 16:55 | Emergency (ER) | payer MEDICARE, OTHER ==
[~2020-02-20] VITALS: Ht 182.9 cm; Wt 54.4 kg
[2020-02-20 18:05] LABS: Creatinine (POC) 0.9 mg/dL (0.8-1.3)
[2020-02-20] MEDS ORDERED: Zithromax250 MG PO (19:29)
== END 2020-02-20 19:31 | disposition home or self-care (01) ==
LOC: CT 16:55 → ER 16:55
PROVIDERS: Physician Assistant
DX: J44.0 Chronic obstructive pulmonary disease with (acute) lower respiratory infection (principal); J12.9 Viral pneumonia, unspecified; F17.210 Nicotine dependence, cigarettes, uncomplicated; Z86.718 Personal history of other venous thrombosis and embolism; Z88.8 Allergy status to other drugs, medicaments and biological substances; Z79.899 Other long term (current) drug therapy
CPT/HCPCS: 71260; 82565; 99283-25; Q9967

== ENCOUNTER → 2020-02-22 | Outpatient (CLI) | payer MEDICARE, OTHER ==
[~2020-02-22] MED LIST changes: +Zithromax250 MG PO
== END | disposition home or self-care (01) ==
LOC: LAB SHORT 12:38 → LAB 12:38
DX: L08.0 Pyoderma (principal)
CPT/HCPCS: 87070; 87205

== ENCOUNTER → 2020-03-01 | Outpatient (CLI) | payer MEDICARE, OTHER | END | disposition home or self-care (01) | LOC: LAB SHORT 14:41 → LAB EV 14:41 | DX: J12.9 Viral pneumonia, unspecified (principal) | CPT/HCPCS: U0003 ==

== ENCOUNTER 2020-03-21 06:30 | Day surgery (SDC) | payer MEDICARE, OTHER ==
[~2020-03-21] VITALS: Ht 177.8 cm; Wt 60.0 kg
[~2020-03-21 06:30] MED LIST changes: +CARV6.25 PO; +IRON PO; +LORA.5 PO; +Promethazine12.5 M1 PO; +TOLT2ER PO
[2020-03-21] MEDS ORDERED: TIOT18 INH (07:51)
[2020-03-21] MEDS ORDERED: SALM50IP INH (07:51)
[2020-03-21] MEDS ORDERED: ALBU90OI INH (07:52)
[2020-03-21] MEDS ORDERED: DOXY100 PO (07:52)
--- NOTE | 2020-03-21 08:14 | NUR ---
PT C/O CHEST PAIN PROGRESSING GETTING WORSE OVER LAST MONTH. DR MAGANA AWARE.
--- NOTE | 2020-03-21 09:01 | NUR ---
PT TOLERATED JENNIFER WELL. PT SITTING UP AND TALKING. CALL LIGHT IN REACH.
--- NOTE | 2020-03-21 09:45 | NUR ---
DISCHARGE INSTRUCTIONS REVIEWED ALL QUESTIONS ANSWERED. 20 G IV REMOVED FROM LEFT HAND WITH INTACT CANNULA. PT DRANK SIPS OF WATER WITH NO ASPIRATION. PT AMBULATED WITH [place] FOR LIMITED ECHO.
== END 2020-03-21 22:45 | disposition home or self-care (01) ==
LOC: MHTC 06:30
DX: I34.0 Nonrheumatic mitral (valve) insufficiency (principal); I27.20 Pulmonary hypertension, unspecified; I70.0 Atherosclerosis of aorta; I10 Essential (primary) hypertension; J43.9 Emphysema, unspecified; Z79.899 Other long term (current) drug therapy; Z87.891 Personal history of nicotine dependence
CPT/HCPCS: 71045; 93312; 93325; J2250; J3010; J7030

== ENCOUNTER 2020-04-02 06:56 | Day surgery (SDC) | payer MEDICARE, OTHER ==
[~2020-04-02] VITALS: Ht 177.8 cm; Wt 60.0 kg
[~2020-04-02 06:56] MED LIST changes: +ALBU90OI INH; +DOXY100 PO; +PROM12.5S PR; +SALM50IP INH; +TIOT18 INH
--- NOTE | 2020-04-02 11:39 | NUR ---
PT RETURNED TO RECOVERY ROOM IN RECLINER WITH RIGHT TR BAND WITH WRIST BOARD IN PLACE. RIGHT RADIAL TR BAND SITE SOFT NON-TENDER WITH NO HEMATOMA AND NO PULSATILE BLEEDING. RIGHT AC VENOUS SITE SOFT NON-TENDER WITH NO BLEEDING NO HEMATOMA AND INTACT DRESSING. PT DENIES CP. CALL LIGHT IN REACH. PT DRINKING COFFEE AND EATING LUNCH.
--- NOTE | 2020-04-02 12:17 | NUR ---
PT RETURNED TO RECOVERY ROOM IN RECLINER. RIGHT RADIAL TR BAND SITE WITH WRIST BOARD SOFT NON-TENDER WITH NO HEMATOMA AND NO PULSATILE BLEEDING. PT DENIES CHEST PAIN. CALL LIGHT IN REACH.
--- NOTE | 2020-04-02 13:27 | NUR ---
13 CC OF AIR REMOVED OVER 10 MIN FROM NOW DEFLATED RIGHT RADIAL TR BAND; NO HEMATOMA, NO PULSATILE BLEEDING AND SOFT. DISCHARGE INSTRUCTIONS REVIEWED AND ALL QUESTIONS ANSWERED.
--- NOTE | 2020-04-02 13:56 | NUR ---
NO CHANGES TO DEFLATED RIGHT RAIDAL TR BAND SITE OR RIGHT AC SITE.
--- NOTE | 2020-04-02 14:27 | NUR ---
DEFLATED RIGHT TR BAND REMOVED AND POLYMEM PLACED OVER SITE. 20 G IV DISCONTINUED FROM LEFT HAND WITH INTACT CANNULA. RIGHT RADIAL SITE WITH WRIST BOARD STILL SOFT WITH NO HEMATOMA AND NO PULSATILE BLEEDING. NO CHANGES TO RIGHT AC SITE. PT ESCORTED OUT VIA WHEELCHAIR ESCORT.
== END 2020-04-02 14:25 | disposition home or self-care (01) ==
LOC: MHTC 06:56
PROC: 4A023N8 Measurement of Cardiac Sampling and Pressure, Bilateral, Percutaneous Approach (ICD-10-PCS; principal; 2020-04-02)
PROC: B2111ZZ Fluoroscopy of Multiple Coronary Arteries using Low Osmolar Contrast (ICD-10-PCS; principal; 2020-04-02)
DX: I34.0 Nonrheumatic mitral (valve) insufficiency (principal); J44.9 Chronic obstructive pulmonary disease, unspecified; I10 Essential (primary) hypertension; I27.20 Pulmonary hypertension, unspecified; Z79.899 Other long term (current) drug therapy; Z88.8 Allergy status to other drugs, medicaments and biological substances
CPT/HCPCS: 93460; 99152; 99153; C1769; C1894; J1644; J2250; J3010; J7030; J7040; Q9967

== ENCOUNTER 2020-05-22 20:14 | Emergency (ER) | payer MEDICARE, OTHER ==
[~2020-05-22] VITALS: Ht 182.9 cm; Wt 61.2 kg
[~2020-05-22 20:14] MED LIST changes: +Coumadin5 MG PO; -LORA.5 PO; +Lovenox60 MG/0.6 SC; -PANT20 PO
[2020-05-22 20:55] LABS: BASOPHILS ABSOLUTE AUTO 0.05 K/mm3 (0.00-0.23); BASOPHILS PERCENT AUTO 1 % (0-2); EOSINOPHILS ABSOLUTE AUTO 0.33 K/mm3 (0.00-0.68); EOSINOPHILS PERCENT AUTO 5 % (0-6); Hemoglobin 11.3 g/dL (13.5-17.5); IMMATURE GRAN ABSOLUTE AUTO 0.02 K/mm3 (0.00-0.10); IMMATURE GRAN PERCENT AUTO 0 % (0-1); LYMPHOCYTES ABSOLUTE AUTO 0.72 K/mm3 (0.84-5.20); LYMPHOCYTES PERCENT AUTO 10 % (21-46); MONOCYTES ABSOLUTE AUTO 0.65 K/mm3 (0.16-1.47); MONOCYTES PERCENT AUTO 9 % (4-13); Mean Corpuscular HGB 25.4 pg (26.0-34.0); Mean Corpuscular HGB Conc 32.3 g/dL (31.5-36.5); Mean Corpuscular Volume 79 fL (80-100); Mean Platelet Volume 8.7 fL (9.1-12.4); NEUTROPHILS ABSOLUTE AUTO 5.31 K/mm3 (1.96-9.15); NEUTROPHILS PERCENT AUTO 75 % (41-73); Platelet Count 293 K/mm3 (150-400); RDW Coefficient Variation 24.1 % (11.7-14.2); RDW Standard Deviation 66.1 fL (35.1-46.3); Red Blood Cell Count 4.45 M/mm3 (4.30-5.90); White Blood Cell Count 7.08 K/mm3 (4.00-11.30)
[2020-05-22 21:22] LABS: Prothrombin Time Results 79.7 Sec (9.7-11.5)
[2020-05-22 21:37] LABS: International Normalized Ratio 8.4
[2020-06-21] MEDS ORDERED: Phenergan25 M1 PO (15:52)
[2020-06-21] MEDS ORDERED: CLON.1 PO (15:54)
[2020-06-21] MEDS ORDERED: LORA.5 PO (15:55)
[2020-06-21] MEDS ORDERED: ALBU90OI INH (15:56)
[2020-06-21] MEDS ORDERED: TRELEGY ELLIPT1 EACH INH (15:57)
[2020-06-21] MEDS ORDERED: OLAN10 PO (15:57)
[2020-06-21] MEDS ORDERED: WARF3 PO (16:01)
[2020-06-21] MEDS ORDERED: TIOT18 INH (16:02)
[2020-06-21] MEDS ORDERED: SALM50IP INH (16:04)
[2020-06-21] MEDS ORDERED: PANT20 PO (17:51)
[2020-06-24] MEDS ORDERED: FERROUS GLUCON324 M2 PO (12:25)
== END 2020-05-22 22:22 | disposition left against medical advice (07) ==
LOC: ER 20:14
PROVIDERS: Physician Assistant
DX: Z53.21 Procedure and treatment not carried out due to patient leaving prior to being seen by health care provider (principal)
CPT/HCPCS: 36415; 85025; 85610; 99283

== ENCOUNTER 2020-06-17 01:40 | Emergency (ER) | payer MEDICARE, OTHER ==
[~2020-06-17] VITALS: Ht 182.9 cm; Wt 63.5 kg
[2020-06-17] MEDS ORDERED: PROM25 PO (01:57)
[2020-06-17] MEDS ORDERED: Catapres0.1 MG PO (01:57)
[2020-06-21] MEDS ORDERED: Phenergan25 M1 PO (15:52)
[2020-06-21] MEDS ORDERED: CLON.1 PO (15:54)
[2020-06-21] MEDS ORDERED: LORA.5 PO (15:55)
[2020-06-21] MEDS ORDERED: ALBU90OI INH (15:56)
[2020-06-21] MEDS ORDERED: TRELEGY ELLIPT1 EACH INH (15:57)
[2020-06-21] MEDS ORDERED: OLAN10 PO (15:57)
[2020-06-21] MEDS ORDERED: WARF3 PO (16:01)
[2020-06-21] MEDS ORDERED: TIOT18 INH (16:02)
[2020-06-21] MEDS ORDERED: SALM50IP INH (16:04)
[2020-06-21] MEDS ORDERED: PANT20 PO (17:51)
[2020-06-24] MEDS ORDERED: FERROUS GLUCON324 M2 PO (12:25)
== END 2020-06-17 02:14 | disposition home or self-care (01) ==
LOC: ER 01:40
DX: F11.23 Opioid dependence with withdrawal (principal); R40.0 Somnolence; Z88.8 Allergy status to other drugs, medicaments and biological substances; Z79.01 Long term (current) use of anticoagulants; Z79.899 Other long term (current) drug therapy
CPT/HCPCS: 99283

== ENCOUNTER → 2020-07-04 | Outpatient (CLI) | payer MEDICARE, OTHER ==
[~2020-07-04] MED LIST changes: +Catapres0.1 MG PO; +FERROUS GLUCON324 M2 PO; +FINA5 PO; +LORA.5 PO; +ONDA4ODT MM; +PANT20 PO; +PSEUDOEPHEDRINE30 MG PO; +Phenergan25 M1 PO; +TRELEGY ELLIPT1 EACH INH; +Voltaren100 GM TOP
[2020-07-04 17:11] LABS: BASOPHILS ABSOLUTE AUTO 0.07 K/mm3 (0.00-0.23); BASOPHILS PERCENT AUTO 1 % (0-2); EOSINOPHILS ABSOLUTE AUTO 0.22 K/mm3 (0.00-0.68); EOSINOPHILS PERCENT AUTO 3 % (0-6); Hematocrit 25.6 % (37.0-53.0); Hemoglobin 7.8 g/dL (13.5-17.5); IMMATURE GRAN ABSOLUTE AUTO 0.02 K/mm3 (0.00-0.10); IMMATURE GRAN PERCENT AUTO 0 % (0-1); LYMPHOCYTES ABSOLUTE AUTO 0.84 K/mm3 (0.84-5.20); LYMPHOCYTES PERCENT AUTO 13 % (21-46); MONOCYTES PERCENT AUTO 8 % (4-13); Mean Corpuscular HGB 24.1 pg (26.0-34.0); Mean Corpuscular HGB Conc 30.5 g/dL (31.5-36.5); Mean Corpuscular Volume 79 fL (80-100); Mean Platelet Volume 8.6 fL (9.1-12.4); NEUTROPHILS ABSOLUTE AUTO 4.76 K/mm3 (1.96-9.15); NEUTROPHILS PERCENT AUTO 74 % (41-73); Platelet Count 363 K/mm3 (150-400); RDW Coefficient Variation 19.9 % (11.7-14.2); RDW Standard Deviation 57.2 fL (35.1-46.3); Red Blood Cell Count 3.23 M/mm3 (4.30-5.90); White Blood Cell Count 6.41 K/mm3 (4.00-11.30)
== END ==
LOC: LAB EV 17:08 → LAB SHORT 17:08
PROVIDERS: Physician Assistant
DX: D64.9 Anemia, unspecified (principal)
CPT/HCPCS: 85025

== ENCOUNTER → 2020-08-09 | Outpatient (CLI) | payer MEDICARE, OTHER | END | disposition home or self-care (01) | LOC: LAB SHORT 10:01 → LAB EV 10:01 | DX: F11.20 Opioid dependence, uncomplicated (principal) | CPT/HCPCS: G0480 ==

== ENCOUNTER → 2020-08-28 | Outpatient (CLI) | payer MEDICARE, OTHER | END | disposition home or self-care (01) | LOC: LAB EV 09:40 → LAB SHORT 09:40 | DX: Z51.81 Encounter for therapeutic drug level monitoring (principal); Z79.899 Other long term (current) drug therapy | CPT/HCPCS: G0480 ==

== ENCOUNTER → 2020-10-01 | Outpatient (CLI) | payer MEDICARE, OTHER ==
[~2020-10-01] MED LIST changes: +ACETAMINOPHEN500 MG PO; +CARAFATE1 GM PO; +Norco 5-325 Ta1 EACH PO
== END | disposition home or self-care (01) ==
LOC: LAB EV 11:45
DX: Z51.81 Encounter for therapeutic drug level monitoring (principal); Z79.899 Other long term (current) drug therapy
CPT/HCPCS: G0480

== ENCOUNTER 2020-11-07 13:38 | Emergency (ER) | payer MEDICARE, OTHER ==
[~2020-11-07] VITALS: Ht 182.9 cm; Wt 63.5 kg
[~2020-11-07 13:38] MED LIST changes: -ACETAMINOPHEN500 MG PO; -CARAFATE1 GM PO; -Norco 5-325 Ta1 EACH PO
[2020-11-07 14:23] LABS: BASOPHILS ABSOLUTE AUTO 0.04 K/mm3 (0.00-0.23); BASOPHILS PERCENT AUTO 1 % (0-2); EOSINOPHILS ABSOLUTE AUTO 0.35 K/mm3 (0.00-0.68); EOSINOPHILS PERCENT AUTO 6 % (0-6); Hematocrit 35.5 % (37.0-53.0); Hemoglobin 10.5 g/dL (13.5-17.5); IMMATURE GRAN ABSOLUTE AUTO 0.02 K/mm3 (0.00-0.10); IMMATURE GRAN PERCENT AUTO 0 % (0-1); LYMPHOCYTES ABSOLUTE AUTO 1.05 K/mm3 (0.84-5.20); LYMPHOCYTES PERCENT AUTO 17 % (21-46); MONOCYTES ABSOLUTE AUTO 0.49 K/mm3 (0.16-1.47); MONOCYTES PERCENT AUTO 8 % (4-13); Mean Corpuscular HGB 20.2 pg (26.0-34.0); Mean Corpuscular HGB Conc 29.6 g/dL (31.5-36.5); Mean Corpuscular Volume 68 fL (80-100); Mean Platelet Volume 8.9 fL (9.1-12.4); NEUTROPHILS ABSOLUTE AUTO 4.38 K/mm3 (1.96-9.15); NEUTROPHILS PERCENT AUTO 69 % (41-73); Platelet Count 296 K/mm3 (150-400); RDW Coefficient Variation 26.6 % (11.7-14.2); RDW Standard Deviation 57.8 fL (35.1-46.3); Red Blood Cell Count 5.19 M/mm3 (4.30-5.90); White Blood Cell Count 6.33 K/mm3 (4.00-11.30)
[2020-11-07 14:44] LABS: Alanine Aminotransfer (ALT/SGP 15 U/L (12-78); Albumin, Blood 3.5 g/dL (3.4-5.0); Albumin/Globulin Ratio 0.9 (0.8-1.8); Alk Phos 108 U/L (50-136); Anion Gap 7 mmol/L (6-16); Aspartate Aminotrans (AST/SGOT 15 U/L (12-37); Bilirubin, Total 0.5 mg/dL (0.1-1.0); Blood Urea Nitrogen 13 mg/dL (8-24); Bun/Creatinine Ratio 14.6 (12.0-20.0); CO2, Blood 25 mmol/L (21-32); Calcium, Blood 9.2 mg/dL (8.5-10.1); Chloride, Blood 109 mmol/L (98-108); Creatinine, Blood 0.89 mg/dL (0.60-1.20); Globulin, Blood 3.7 g/dL (2.2-4.0); Glomerular Filtration Rate >60 (60-); Glucose, Blood 104 mg/dL (70-99); Potassium, Blood 3.8 mmol/L (3.5-5.5); Sodium, Blood 141 mmol/L (136-145); Total Protein, Blood 7.2 g/dL (6.4-8.2); Troponin I <0.015 ng/mL (0.000-0.040)
[2020-11-07 14:59] LABS: Source, Urine Clean Catch
[2020-11-07 15:06] LABS: Appearance, Urine Clear (Clear); Bilirubin, Urine Neg (Neg); Blood, Urine Neg (Neg); Color, Urine Yellow (P-Yellow); Glucose Qualitative, Urine Neg (Neg); Ketones, Urine 1+ (Neg); Leukocyte Esterase, Urine 1+ (Neg); Nitrite, Urine Neg (Neg); Protein, Urine Neg (Neg); Specific Gravity, Urine 1.025 (1.003-1.022); Urobilinogen, Urine NORM (Normal)
[2020-11-07 15:17] LABS: Mucus Light (0-Heavy)
[2020-11-07 15:18] LABS: Bacteria Few /hpf; Red Blood Cells, Urine 0-2 /hpf (0-2); Squamous Epithelial Cells Not Seen /hpf (Few)
[2021-05-18] MEDS ORDERED: Zofran4 MG PO (12:26)
[2021-05-18] MEDS ORDERED: Norco 5-325 Ta1 EACH PO (12:26)
== END 2020-11-07 16:14 | disposition home or self-care (01) ==
LOC: ER 13:38
PROVIDERS: Physician Assistant
DX: R00.1 Bradycardia, unspecified (principal); Z53.21 Procedure and treatment not carried out due to patient leaving prior to being seen by health care provider
CPT/HCPCS: 36415; 80053; 81001; 84484; 85025; 85730; 86850; 86900; 86901; 87086; 93005; 93010

== ENCOUNTER 2020-11-28 09:32 | Emergency (ER) | payer MEDICARE, OTHER ==
[~2020-11-28] VITALS: Ht 172.7 cm; Wt 55.3 kg
[2020-11-28 10:13] LABS: BASOPHILS ABSOLUTE AUTO 0.06 K/mm3 (0.00-0.23); BASOPHILS PERCENT AUTO 1 % (0-2); EOSINOPHILS ABSOLUTE AUTO 0.14 K/mm3 (0.00-0.68); EOSINOPHILS PERCENT AUTO 1 % (0-6); Hematocrit 53.5 % (37.0-53.0); Hemoglobin 16.1 g/dL (13.5-17.5); IMMATURE GRAN ABSOLUTE AUTO 0.04 K/mm3 (0.00-0.10); IMMATURE GRAN PERCENT AUTO 0 % (0-1); LYMPHOCYTES ABSOLUTE AUTO 1.62 K/mm3 (0.84-5.20); LYMPHOCYTES PERCENT AUTO 16 % (21-46); MONOCYTES ABSOLUTE AUTO 1.14 K/mm3 (0.16-1.47); MONOCYTES PERCENT AUTO 11 % (4-13); Mean Corpuscular HGB 22.1 pg (26.0-34.0); Mean Corpuscular HGB Conc 30.1 g/dL (31.5-36.5); Mean Corpuscular Volume 73 fL (80-100); NEUTROPHILS ABSOLUTE AUTO 7.34 K/mm3 (1.96-9.15); NEUTROPHILS PERCENT AUTO 71 % (41-73); Platelet Count 357 K/mm3 (150-400); RDW Coefficient Variation 29.3 % (11.7-14.2); RDW Standard Deviation 72.8 fL (35.1-46.3); White Blood Cell Count 10.34 K/mm3 (4.00-11.30)
[2020-11-28 10:26] LABS: International Normalized Ratio 1.02; Prothrombin Time Results 10.9 Sec (9.7-11.5)
[2020-11-28 10:36] LABS: Alanine Aminotransfer (ALT/SGP 30 U/L (12-78); Albumin, Blood 4.1 g/dL (3.4-5.0); Albumin/Globulin Ratio 1.1 (0.8-1.8); Alk Phos 102 U/L (50-136); Anion Gap 9 mmol/L (6-16); Aspartate Aminotrans (AST/SGOT 26 U/L (12-37); Bilirubin, Total 1.1 mg/dL (0.1-1.0); Blood Urea Nitrogen 21 mg/dL (8-24); Bun/Creatinine Ratio 16.4 (12.0-20.0); CO2, Blood 27 mmol/L (21-32); Calcium, Blood 10.5 mg/dL (8.5-10.1); Chloride, Blood 101 mmol/L (98-108); Creatinine, Blood 1.28 mg/dL (0.60-1.20); Globulin, Blood 3.8 g/dL (2.2-4.0); Glomerular Filtration Rate >60 (60-); Glucose, Blood 96 mg/dL (70-99); Magnesium, Blood 2.3 mg/dL (1.6-2.4); Potassium, Blood 3.4 mmol/L (3.5-5.5); Sodium, Blood 137 mmol/L (136-145); Thyroid Stimulating Hormone 0.546 uIU/mL (0.360-4.800); Total Protein, Blood 7.9 g/dL (6.4-8.2)
[2020-11-28] MEDS ORDERED: CARAFATE1 GM PO (14:10)
[2020-11-28] MEDS ORDERED: ACETAMINOPHEN500 MG PO (14:14)
[2021-05-18] MEDS ORDERED: Zofran4 MG PO (12:26)
[2021-05-18] MEDS ORDERED: Norco 5-325 Ta1 EACH PO (12:26)
== END 2020-11-28 14:30 | disposition home or self-care (01) ==
LOC: ER 09:32
PROVIDERS: Emergency Medicine
DX: R10.13 Epigastric pain (principal); R63.4 Abnormal weight loss; R06.02 Shortness of breath; R11.10 Vomiting, unspecified; E86.0 Dehydration; R53.1 Weakness; R53.83 Other fatigue; K57.30 Diverticulosis of large intestine without perforation or abscess without bleeding; K44.9 Diaphragmatic hernia without obstruction or gangrene; R94.31 Abnormal electrocardiogram [ECG] [EKG]; F17.210 Nicotine dependence, cigarettes, uncomplicated; Z79.899 Other long term (current) drug therapy; Z88.8 Allergy status to other drugs, medicaments and biological substances; Z87.442 Personal history of urinary calculi; Z68.1 Body mass index [BMI] 19.9 or less, adult
CPT/HCPCS: 36415; 71045; 74177; 80053; 83605; 83690; 83735; 84443; 84484; 85025; 85610; 86850; 86900; 86901; 93005; 93010; 96361; 96374-59; 96375; 99285-25; C9113; J2405; J3010; J7120; Q9967

== ENCOUNTER 2021-11-15 08:08 | Emergency (ER) | payer MEDICARE, OTHER ==
[~2021-11-15] VITALS: Ht 165.1 cm; Wt 63.5 kg
[~2021-11-15 08:08] MED LIST changes: +ACET500 PO; +ACETAMINOPHEN500 MG PO; +CARAFATE1 GM PO; +IBUP600 PO; +Norco 5-325 Ta1 EACH PO; +Roxicodone5 MG PO
[2021-11-15] MEDS ORDERED: OXYC10ER PO (08:26)
[2021-11-15] MEDS ORDERED: BACL10 (08:26)
[2021-11-15 12:35] LABS: BASOPHILS ABSOLUTE AUTO 0.03 K/mm3 (0.00-0.23); BASOPHILS PERCENT AUTO 0 % (0-2); EOSINOPHILS ABSOLUTE AUTO 0.07 K/mm3 (0.00-0.68); EOSINOPHILS PERCENT AUTO 1 % (0-6); Hematocrit 39.4 % (37.0-53.0); Hemoglobin 12.3 g/dL (13.5-17.5); IMMATURE GRAN ABSOLUTE AUTO 0.06 K/mm3 (0.00-0.10); IMMATURE GRAN PERCENT AUTO 1 % (0-1); LYMPHOCYTES ABSOLUTE AUTO 0.38 K/mm3 (0.84-5.20); LYMPHOCYTES PERCENT AUTO 3 % (21-46); MONOCYTES ABSOLUTE AUTO 0.25 K/mm3 (0.16-1.47); MONOCYTES PERCENT AUTO 2 % (4-13); Mean Corpuscular HGB Conc 31.2 g/dL (31.5-36.5); Mean Corpuscular Volume 74 fL (80-100); Mean Platelet Volume 9.6 fL (9.1-12.4); NEUTROPHILS PERCENT AUTO 94 % (41-73); Platelet Count 390 K/mm3 (150-400); RDW Coefficient Variation 17.9 % (11.7-14.2); Red Blood Cell Count 5.34 M/mm3 (4.30-5.90); White Blood Cell Count 12.79 K/mm3 (4.00-11.30)
[2021-11-15 12:45] LABS: Alanine Aminotransfer (ALT/SGP 41 U/L (12-78); Albumin, Blood 3.4 g/dL (3.4-5.0); Albumin/Globulin Ratio 0.8 (0.8-1.8); Alk Phos 109 U/L (50-136); Anion Gap 7 mmol/L (6-16); Aspartate Aminotrans (AST/SGOT 43 U/L (12-37); Bilirubin, Total 0.7 mg/dL (0.1-1.0); Blood Urea Nitrogen 24 mg/dL (8-24); CO2, Blood 25 mmol/L (21-32); Calcium, Blood 9.8 mg/dL (8.5-10.1); Chloride, Blood 101 mmol/L (98-108); Creatinine, Blood 0.71 mg/dL (0.60-1.20); Globulin, Blood 4.4 g/dL (2.2-4.0); Glomerular Filtration Rate >60 (60-); Glucose, Blood 107 mg/dL (70-99); Potassium, Blood 5.3 mmol/L (3.5-5.5); Sodium, Blood 133 mmol/L (136-145); Total Protein, Blood 7.8 g/dL (6.4-8.2)
[2021-11-15] MEDS ORDERED: DEXA4 PO (13:29)
[2021-11-15] MEDS ORDERED: Neurontin 100100 MG PO ×2 (13:29→13:30)
== END 2021-11-15 13:55 | disposition home or self-care (01) ==
LOC: ER 08:08
PROVIDERS: Physician Assistant
DX: M54.12 Radiculopathy, cervical region (principal); F17.210 Nicotine dependence, cigarettes, uncomplicated; Z88.8 Allergy status to other drugs, medicaments and biological substances
CPT/HCPCS: 72125; 80053; 85025; 99284-25; A9270; J1100

== ENCOUNTER 2022-02-28 07:36 | Emergency (ER) | payer MEDICARE, OTHER ==
[~2022-02-28] VITALS: Ht 182.9 cm; Wt 65.8 kg
[~2022-02-28 07:36] MED LIST changes: +BACL10; +DEXA4 PO; +Neurontin 100100 MG PO; +OXYC10ER PO
[2022-02-28 08:29] LABS: BASOPHILS ABSOLUTE AUTO 0.07 K/mm3 (0.00-0.23); BASOPHILS PERCENT AUTO 1 % (0-2); EOSINOPHILS ABSOLUTE AUTO 0.28 K/mm3 (0.00-0.68); EOSINOPHILS PERCENT AUTO 4 % (0-6); Hematocrit 29.7 % (37.0-53.0); Hemoglobin 8.5 g/dL (13.5-17.5); IMMATURE GRAN ABSOLUTE AUTO 0.01 K/mm3 (0.00-0.10); IMMATURE GRAN PERCENT AUTO 0 % (0-1); LYMPHOCYTES ABSOLUTE AUTO 0.98 K/mm3 (0.84-5.20); LYMPHOCYTES PERCENT AUTO 13 % (21-46); MONOCYTES ABSOLUTE AUTO 0.65 K/mm3 (0.16-1.47); MONOCYTES PERCENT AUTO 9 % (4-13); Mean Corpuscular HGB 18.6 pg (26.0-34.0); Mean Corpuscular HGB Conc 28.6 g/dL (31.5-36.5); Mean Corpuscular Volume 65 fL (80-100); Mean Platelet Volume 9.1 fL (9.1-12.4); NEUTROPHILS ABSOLUTE AUTO 5.46 K/mm3 (1.96-9.15); NEUTROPHILS PERCENT AUTO 73 % (41-73); Platelet Count 392 K/mm3 (150-400); RDW Coefficient Variation 19.3 % (11.7-14.2); RDW Standard Deviation 43.4 fL (35.1-46.3); Red Blood Cell Count 4.58 M/mm3 (4.30-5.90); White Blood Cell Count 7.45 K/mm3 (4.00-11.30)
[2022-02-28 08:40] LABS: Anion Gap 8 mmol/L (6-16); Blood Urea Nitrogen 16 mg/dL (8-24); Bun/Creatinine Ratio 16.9 (12.0-20.0); CO2, Blood 25 mmol/L (21-32); Calcium, Blood 9.4 mg/dL (8.5-10.1); Chloride, Blood 105 mmol/L (98-108); Creatinine, Blood 0.95 mg/dL (0.60-1.20); Glomerular Filtration Rate >60 (60-); Glucose, Blood 103 mg/dL (70-99); Potassium, Blood 3.9 mmol/L (3.5-5.5); Sodium, Blood 138 mmol/L (136-145)
== END 2022-02-28 09:06 | disposition home or self-care (01) ==
LOC: ER 07:36
PROVIDERS: Emergency Medicine
DX: D50.9 Iron deficiency anemia, unspecified (principal); F17.210 Nicotine dependence, cigarettes, uncomplicated; Z88.5 Allergy status to narcotic agent; Z88.8 Allergy status to other drugs, medicaments and biological substances
CPT/HCPCS: 36415; 80048; 85025

== ENCOUNTER 2023-02-19 07:17 | Day surgery (SDC) | payer MEDICARE, OTHER ==
[~2023-02-19] VITALS: Ht 182.9 cm; Wt 59.5 kg
[2023-02-19] MEDS ORDERED: NAPR500ERA (07:51)
[2023-02-19] MEDS ORDERED: PANT20 (07:51)
[2023-02-19] MEDS ORDERED: ONDA4 (07:52)
[2023-02-19] MEDS ORDERED: TRELEGY ELLIPT1 EACH IH (08:34)
[2023-02-19 09:44] VITALS: BP 123/89
== END 2023-02-19 09:45 | disposition home or self-care (01) ==
LOC: ORSCSDS 07:17
PROVIDERS: Internal Medicine Gastroenterology
PROC: 0DB68ZX Excision of Stomach, Via Natural or Artificial Opening Endoscopic, Diagnostic (ICD-10-PCS; principal; 2023-02-19 08:45)
DX: K21.9 Gastro-esophageal reflux disease without esophagitis (principal); K29.70 Gastritis, unspecified, without bleeding; I10 Essential (primary) hypertension; I47.1 Supraventricular tachycardia; I34.0 Nonrheumatic mitral (valve) insufficiency; I27.20 Pulmonary hypertension, unspecified; K22.89 Other specified disease of esophagus; K44.9 Diaphragmatic hernia without obstruction or gangrene; I51.7 Cardiomegaly; J44.9 Chronic obstructive pulmonary disease, unspecified; F17.200 Nicotine dependence, unspecified, uncomplicated; Z79.899 Other long term (current) drug therapy
CPT/HCPCS: 82947; 88305; 88342; J2704; J7120

== ENCOUNTER 2023-08-09 07:13 | Emergency (ER) | payer MEDICARE, OTHER ==
[~2023-08-09] VITALS: Ht 182.9 cm; Wt 63.5 kg
[~2023-08-09 07:13] MED LIST changes: +NAPR500ERA PO; +ONDA4; +PANT20; +TRELEGY ELLIPT1 EACH IH
[2023-08-09 08:00] LABS: BASOPHILS ABSOLUTE AUTO 0.04 K/mm3 (0.00-0.23); BASOPHILS PERCENT AUTO 0 % (0-2); EOSINOPHILS ABSOLUTE AUTO 0.19 K/mm3 (0.00-0.68); EOSINOPHILS PERCENT AUTO 1 % (0-6); Hematocrit 38.4 % (37.0-53.0); Hemoglobin 13.1 g/dL (13.5-17.5); IMMATURE GRAN ABSOLUTE AUTO 0.06 K/mm3 (0.00-0.10); IMMATURE GRAN PERCENT AUTO 0 % (0-1); LYMPHOCYTES ABSOLUTE AUTO 1.32 K/mm3 (0.84-5.20); LYMPHOCYTES PERCENT AUTO 9 % (21-46); MONOCYTES ABSOLUTE AUTO 1.03 K/mm3 (0.16-1.47); MONOCYTES PERCENT AUTO 7 % (4-13); Mean Corpuscular HGB 32.3 pg (26.0-34.0); Mean Corpuscular HGB Conc 34.1 g/dL (31.5-36.5); Mean Corpuscular Volume 95 fL (80-100); Mean Platelet Volume 9.1 fL (9.1-12.4); NEUTROPHILS ABSOLUTE AUTO 11.58 K/mm3 (1.96-9.15); NEUTROPHILS PERCENT AUTO 82 % (41-73); Platelet Count 268 K/mm3 (150-400); RDW Coefficient Variation 14.1 % (11.7-14.2); RDW Standard Deviation 49.1 fL (35.1-46.3); Red Blood Cell Count 4.05 M/mm3 (4.30-5.90); White Blood Cell Count 14.22 K/mm3 (4.00-11.30)
[2023-08-09 08:16] LABS: Albumin, Blood 3.2 g/dL (3.4-5.0); Bilirubin, Total 0.5 mg/dL (0.1-1.0); Bun/Creatinine Ratio 57.4 (12.0-20.0); Calcium, Blood 9.5 mg/dL (8.5-10.1); Creatinine, Blood 0.98 mg/dL (0.60-1.20); Globulin, Blood 3.3 g/dL (2.2-4.0); Potassium, Blood 3.6 mmol/L (3.5-5.5); Total Protein, Blood 6.5 g/dL (6.4-8.2)
[2023-08-09 08:38] VITALS: BP 135/98
== END 2023-08-09 08:38 | disposition home or self-care (01) ==
LOC: ER 07:13
PROVIDERS: Emergency Medicine
DX: K92.1 Melena (principal); Z79.899 Other long term (current) drug therapy; K21.9 Gastro-esophageal reflux disease without esophagitis; F17.210 Nicotine dependence, cigarettes, uncomplicated; Z88.8 Allergy status to other drugs, medicaments and biological substances; Z88.5 Allergy status to narcotic agent
CPT/HCPCS: 80053; 85025; 99282

== ENCOUNTER 2023-08-14 04:46 | Inpatient (IN) | payer MEDICARE, OTHER ==
[2023-08-14] VITALS (26 sets, daily range): BP systolic 114–160; BP diastolic 71–95
[~2023-08-14] VITALS: Ht 182.9 cm; Wt 56.0 kg
[2023-08-14 05:15] LABS: BASOPHILS ABSOLUTE AUTO 0.04 K/mm3 (0.00-0.23); BASOPHILS PERCENT AUTO 0 % (0-2); EOSINOPHILS ABSOLUTE AUTO 0.25 K/mm3 (0.00-0.68); EOSINOPHILS PERCENT AUTO 2 % (0-6); IMMATURE GRAN ABSOLUTE AUTO 0.13 K/mm3 (0.00-0.10); IMMATURE GRAN PERCENT AUTO 1 % (0-1); LYMPHOCYTES ABSOLUTE AUTO 2.32 K/mm3 (0.84-5.20); LYMPHOCYTES PERCENT AUTO 18 % (21-46); MONOCYTES ABSOLUTE AUTO 0.85 K/mm3 (0.16-1.47); MONOCYTES PERCENT AUTO 6 % (4-13); Mean Corpuscular HGB 33.7 pg (26.0-34.0); Mean Corpuscular HGB Conc 33.7 g/dL (31.5-36.5); Mean Corpuscular Volume 100 fL (80-100); Mean Platelet Volume 9.3 fL (9.1-12.4); NEUTROPHILS PERCENT AUTO 73 % (41-73); NRBC ABSOLUTE 0.02 K/mm3 (0.00-0.02); NRBC Auto 0.2 /100 WBC (0.0-0.2); Platelet Count 284 K/mm3 (150-400); RDW Coefficient Variation 15.9 % (11.7-14.2); RDW Standard Deviation 51.8 fL (35.1-46.3); Red Blood Cell Count 1.75 M/mm3 (4.30-5.90); White Blood Cell Count 13.19 K/mm3 (4.00-11.30)
[2023-08-14 05:22] LABS: Hematocrit 17.5 % (37.0-53.0)
[2023-08-14 05:23] LABS: Hemoglobin 5.9 g/dL (13.5-17.5)
[2023-08-14 05:45] LABS: Albumin, Blood 2.5 g/dL (3.4-5.0); Bilirubin, Total 0.3 mg/dL (0.1-1.0); Bun/Creatinine Ratio 35.1 (12.0-20.0); Calcium, Blood 8.6 mg/dL (8.5-10.1); Creatinine, Blood 1.14 mg/dL (0.60-1.20); Globulin, Blood 2.5 g/dL (2.2-4.0); Phosphorus, Blood 2.3 mg/dL (2.5-4.9); Thyroid Stimulating Hormone 2.61 uIU/mL (0.360-4.800)
[2023-08-14] MEDS ORDERED: ZOLOFT10013 PO (06:00)
[2023-08-14 06:38] LABS: Prothrombin Time Results 10.5 Sec (9.7-11.5)
--- NOTE | 2023-08-14 12:42 | NUR ---
ADMISSION: PT ARRIVED TO PCU 12 @1200. PT SLID FROM [facility] VIA THREE STAFF MEMBERS. PT ALERT AND ORIENTED X4, ABLE TO FOLLOW COMMANDS AND MAKE NEEDS KNOWN. STRENGTH WEAK, EQUAL BILATERALLY. BP STABLE, HR SR 90'S, AFEBRILE, SPO2 >98% ON ROOM AIR. RESPIRATIONS EVEN AND UNLABORED AT REST, PT STATES SOB WITH ACTIVITY. PULSES STRONG AND EQUAL THROUGHOUT. HGB 5.9 THIS AFTERNOON, SECOND BAG OF PRBC INFUSING PER EMAR. TOLERATING WELL. CALL TAKEN FROM DR JAIME, VERBAL ORDERS FOR PT TO BE NPO AT THIS TIME FOR POSSIBLE EGD THIS AFTERNOON. PT MADE AWARE. PT EDUCATED ON IGNITION SOURCES AND RISK, PT STATES PACK A DAY SMOKER, TABACCO SENSATION OFFERED, PT DENIED AT THIS TIME. PT ORIENTED TO ROOM AND CALL LIGHT SYSTEM, DENIES NEEDS AT THIS TIME. BED IN LOW, CALL LIGHT IN REACH, WILL CONTINUE TO MONITOR.
--- NOTE | 2023-08-14 14:19 | NUR ---
UPDATE: PT TO EGD AT 1420. WILL AWAIT RETURN.
--- NOTE | 2023-08-14 14:49 | NUR ---
08/14/[address] RAZO; SEE ANESTHESIA RECORDS.
--- NOTE | 2023-08-14 15:41 | NUR ---
UPDATE: PT RETURN FROM EGD. VITAL SIGNS STABLE. HGB REDRAW AT 1600.
[2023-08-14 16:37] LABS: Hematocrit 23.1 % (37.0-53.0); Hemoglobin 7.7 g/dL (13.5-17.5)
--- NOTE | 2023-08-14 17:05 | NUR ---
SHIFT SUMMARY: NO ACUTE CHANGES SINCE ADMISSION. VSS. PT RETURNED FROM EGD, TOLERATED WELL. RECEIVED FOUR CLIPS. DR JAIME IN THIS EVENING AND DISCUSSED FINDINGS WITH PT. ORDERS RECEIVED FOR PROTONIX DRIP, GTT IN L FOREARM. DIET ADVANCED TO FULL LIQUID. HGB REDRAW THIS EVENING, WILL CALL DR. JAIME WITH RESULTS. PT MEDICATED X1 FOR CHRONIC NECK PAIN. [place] [facility] [place]OW, CALL LIGHT IN REACH, WILL REPORT TO ONCOMING RN.
--- NOTE | 2023-08-14 20:45 | NUR ---
ASSUMED PT CARE FROM RN ON . A&OX4. ABLE TO FOLLOW DIRECTIONS AND MAKE NEEDS KNOWN. MEDICATED FOR PAIN IN ABDOMEN 07/12, SEE EMAR. REPORTS SLIGHT NAUSEA AT THIS TIME. WILL MONIOR. DENIES ANY CHEST PAIN/PRESSURE. HR SR IN 80'S. BP STABLE. SEE RECORDED VITAL SIGNS. DENIES SOB. O2 SATS > 92% ON RA. HEATING PAD PROVIDED TO ASSIST WITH PAIN IN ABDOMEN. PROTONIX GTT INFUSING ORDERED. CALL LIGHT IN REACH. BED IN LOW POSITION.
[2023-08-15] VITALS: BP 144/84
[2023-08-15 03:27] VITALS: BP 137/105
[2023-08-15 04:12] LABS: Hematocrit 28.6 % (37.0-53.0); Hemoglobin 9.8 g/dL (13.5-17.5); Mean Corpuscular HGB 32.2 pg (26.0-34.0); Mean Corpuscular HGB Conc 34.3 g/dL (31.5-36.5); Mean Platelet Volume 9.1 fL (9.1-12.4); NRBC ABSOLUTE 0.03 K/mm3 (0.00-0.02); NRBC Auto 0.2 /100 WBC (0.0-0.2); Platelet Count 315 K/mm3 (150-400); RDW Coefficient Variation 17.7 % (11.7-14.2); RDW Standard Deviation 52.1 fL (35.1-46.3); Red Blood Cell Count 3.04 M/mm3 (4.30-5.90)
[2023-08-15 04:22] LABS: Mean Corpuscular Volume 94 fL (80-100)
[2023-08-15 04:34] LABS: Calcium, Blood 9.8 mg/dL (8.5-10.1)
--- NOTE | 2023-08-15 04:58 | NUR ---
SHIFT SUMMARY: MEDICATED FOR ABDOMENAL PAIN, SEE EMAR. PT IS TEARFUL, REPORTING EMBARESSMENT ABOUT HAVING LIQUID STOOLS BY ACCIDENT. CONSULATION GIVEN. ASSISTED WITH RUDDY CARE. PT HAVING SMALL, LIQUID, DARK STOOLS. REPORTS MILD NAUSEA WITHOUT EMASIS. HR SR/ST UP INTO 120'S AT TIMES BUT DOES NOT SUSTAIN. ASYMPTOMATIC WITH INCREASED HR. BP STABLE. WILL MONITOR. CALL LIGHT IN REACH. BED IN LOW POSITION.
[2023-08-15 09:04] VITALS: BP 161/105
--- NOTE | 2023-08-15 13:34 | NUR ---
CARE NOTE PT APPEARS COMFORTABLE AT THIS TIME, HE IS STILL WORKING ON EATING LUNCH, CHOCOLATE ENSURE BROUGHT TO HIM PER PT REQUEST. HE DENIES FEEINGS OF NAUSEA/ABD PAIN AT THIS TIME. CALL LIGHT W/IN REACH.
[2023-08-15 15:01] VITALS: BP 145/103
--- NOTE | 2023-08-15 17:04 | NUR ---
SHIFT SUMMARY PT IS ALERT AND ORIENTED X 4 AND IS ABLE TO MAKE HIS NEEDS KNOWN. HE BECAME EMOTIONAL/TEARFUL AT TIMES. VSS, SPO2 MAINTAINED >95% VIA RA. PT DENIED FEELINGS OF CHEST PAIN/PRESSURE, HE DENIED FEELING SOB. PAIN WAS REPORTED 8-9/10 IN MID ABD, PLEASE SEE EMAR FOR PAIN MANAGEMENT. PT WAS NAUSEOUS/VOMITED THIS AM BUT WAS MUCH IMPROVED W/ ZOFRAN. PT HAD INCONTINENT EPISODES OF BLACK TARRY STOOLS. PROTONIX IS INFUSING PER EMAR ORDERS. PT WAS ABLE TO AMBULATE AROUND PCU ROOM AND APPEARED STEADY ON HIS FEET A 1 PERSON ASSIST. PT WAS ENCOURAGED TO SIT UP IN CHAIR DURING SHIFT AND SAT UP IN CHAIR FOR PART OF THE AFTERNOON. CALL LIGHT IS W/IN REACH. WILL CONTINUE TO MONITOR UNTIL REPORT GIVEN.
[2023-08-15 20:11] VITALS: BP 148/108
[2023-08-15 20:51] LABS: Hematocrit 26.6 % (37.0-53.0)
[2023-08-15 23:28] VITALS: BP 161/111
[2023-08-16 02:53] LABS: Hematocrit 27.3 % (37.0-53.0); Hemoglobin 9.3 g/dL (13.5-17.5); Mean Corpuscular HGB 32.7 pg (26.0-34.0); Mean Corpuscular HGB Conc 34.1 g/dL (31.5-36.5); Mean Corpuscular Volume 96 fL (80-100); Mean Platelet Volume 9.8 fL (9.1-12.4); NRBC ABSOLUTE 0.02 K/mm3 (0.00-0.02); NRBC Auto 0.1 /100 WBC (0.0-0.2); Platelet Count 285 K/mm3 (150-400); RDW Coefficient Variation 18.9 % (11.7-14.2); RDW Standard Deviation 56.6 fL (35.1-46.3); Red Blood Cell Count 2.84 M/mm3 (4.30-5.90); White Blood Cell Count 13.74 K/mm3 (4.00-11.30)
[2023-08-16 03:26] LABS: Percent Saturation 7.6 % (20.0-50.0)
[2023-08-16 05:09] VITALS: BP 175/104
[2023-08-16 06:22] LABS: Albumin, Blood 2.7 g/dL (3.4-5.0); Albumin/Globulin Ratio 0.8 (0.8-1.8); Bilirubin, Total 0.4 mg/dL (0.1-1.0); Calcium, Blood 9.3 mg/dL (8.5-10.1); Globulin, Blood 3.5 g/dL (2.2-4.0); Potassium, Blood 4.5 mmol/L (3.5-5.5); Total Protein, Blood 6.2 g/dL (6.4-8.2)
[2023-08-16 07:58] VITALS: BP 159/100
--- NOTE | 2023-08-16 09:00 | NUR ---
UPDATE PT ALERT AND ORIENTED THIS AM. PT CALLED THIS RN IN THE ROOM AND STATES HE FEELS VERY ANXIOUS. PT STATES HE IS HALLUCINATING AND THAT HE SEES A BLUE ROOM AND PEOPLE SURROUNDING HIM IN THE ROOM. THIS RN ATTEMPTS TO REASSURE PT THAT HE IS IN HIS HOSPITAL ROOM. PT CALMS DOWN. DR. REYNOSO NOTIFIED OF HALLUCINATIONS. PT DENIES PAIN THIS AM. PT FOUND TO BE WET AND INCONTINENT OF BOTH BOWEL AND BLADDER. PT PROVIDED BED BATH AND NEW ATTENDS IN PLACE. PROTONIX INFUSING PER ORDERS. WILL CONTINUE TO MONITOR CLOSELY
--- NOTE | 2023-08-16 14:17 | NUR ---
UPDATE PT REMAINS ALERT AND ORIENTED. PT COMPLAINED OF EPIGASTRIC PAIN. PT MEDICATED WITH MAALOX AND NO RELIEF. PT THEN MEDICATED WITH FENTANYL PER EMAR. BED ASSIGNED ON MEDICAL FLOOR AND REPORT GIVEN TO MEDICAL FLOOR RN. PT TO BE TAKEN UP BY WILMA
--- NOTE | 2023-08-16 14:54 | NUR ---
pt arrived to 312 via wheelchair from PCU. he is breathing hard, and states his pain is 8/10, family member in attendence. notified Dr. Bangura about pain and that its only been one hr since last administration, she will make changes to medications regimen. call light in reach.
[2023-08-16 15:36] VITALS: BP 165/100
--- NOTE | 2023-08-16 18:35 | NUR ---
pt has been breating hard, called for pain meds for him, tried oxycodone, that didn't help, tried the simethicone with no relief, Dr. Bangura notified, she came to see him and ordered kub and blood work. will medicate with fentanyl at this time, no further changes this shift. call light in reach.
[2023-08-16 20:29] LABS: Hematocrit 27.8 % (37.0-53.0); Hemoglobin 9.3 g/dL (13.5-17.5)
[2023-08-16 21:15] VITALS: BP 152/102
[2023-08-16 22:42] LABS: Base Excess Venous -1.9 mmol/L; Bicarbonate Venous 23.6 mmol/L (24.0-30.0); PCO2 Venous 26.1 mmHg (38-42); pH Blood Venous 7.51 (7.34-7.37)
[2023-08-16 23:04] LABS: Hematocrit 28.9 % (37.0-53.0); Hemoglobin 9.9 g/dL (13.5-17.5); Mean Corpuscular HGB 32.5 pg (26.0-34.0); Mean Corpuscular HGB Conc 34.3 g/dL (31.5-36.5); Mean Corpuscular Volume 95 fL (80-100); Mean Platelet Volume 8.9 fL (9.1-12.4); NRBC ABSOLUTE 0.03 K/mm3 (0.00-0.02); NRBC Auto 0.4 /100 WBC (0.0-0.2); Platelet Count 316 K/mm3 (150-400); RDW Coefficient Variation 19.6 % (11.7-14.2); RDW Standard Deviation 56.3 fL (35.1-46.3); Red Blood Cell Count 3.05 M/mm3 (4.30-5.90); White Blood Cell Count 7.89 K/mm3 (4.00-11.30)
[2023-08-16 23:14] LABS: Albumin, Blood 2.9 g/dL (3.4-5.0); Albumin/Globulin Ratio 0.8 (0.8-1.8); Bilirubin, Total 0.4 mg/dL (0.1-1.0); Bun/Creatinine Ratio 30.8 (12.0-20.0); Calcium, Blood 9.5 mg/dL (8.5-10.1); Creatinine, Blood 1.33 mg/dL (0.60-1.20); Globulin, Blood 3.6 g/dL (2.2-4.0); Potassium, Blood 4.5 mmol/L (3.5-5.5); Total Protein, Blood 6.5 g/dL (6.4-8.2)
[2023-08-16 23:23] LABS: BAND PERCENT MAN 25 % (0-8); BASOPHILS PERCENT MAN 0 % (0-2); EOSINOPHILS PERCENT MAN 0 % (0-6); LYMPHOCYTES % ATYPICAL MANUAL 1 % (0-0); LYMPHOCYTES ABSOLUTE MAN 0.15 K/mm3 (0.84-5.20); LYMPHOCYTES PERCENT MAN 1 % (21-46); MONOCYTES ABSOLUTE MAN 0.94 K/mm3 (0.16-1.47); MONOCYTES PERCENT MAN 12 % (4-13); NEUTROPHILS ABSOLUTE MAN 6.78 K/mm3 (1.96-9.15); SEG NEUTROPHILS PERCENT MAN 61 % (41-73); TOTAL CELLS COUNTED 100
--- NOTE | 2023-08-16 23:24 | NUR ---
199908/16/23 [facility] hospitalist notified of abd x-ray results of possible bowel obstruction. New order for CT with contrast obtained. Also now order for fentanyl 50 mcg for severe pain. [address] scan but IV infiltrated. Dr. Lawson ordered CTA abdomen and pelvis with contrast. It was clarified with Dr. Lawson by phone and she is aware that patient just had contrast but wants it done for a more complete scan. 2250 medicated again with 50 mcg of fentanyl with no relief at this time. NS bolus started, as ordered, Dr. Lawson at bedside. Pt to CT scan via stretcher and then to OR. Pt has no one he wants notified at this time.
[2023-08-17] VITALS (50 sets, daily range): BP systolic 105–164; BP diastolic 78–113
--- NOTE | 2023-08-17 01:40 | NUR ---
PATIENT ARRIVED TO ICU 7 VIA BED FROM OR WITH ETT IN PLACE. ABD DRESSING MIDLINE WITH JESSICA DRESSING. NG TO LEFT NARE PLACED TO LIS DRAINING RED STREAKED BROWN BILE. RT PLACED ETT TO VENT SET AT AC 14, TV 500, PEEP 5, FIO2 45% AND SECURED TUBE. ROSALES IN PLACE DRAINING CLEAR YELLOW URINE.
--- NOTE | 2023-08-17 02:14 | NUR ---
Patient will be going to ICU post surgery. Belongings taken to ICU 7. Report given to Shanna HAYES.
[2023-08-17 02:20] LABS: Base Excess Venous -3.6 mmol/L; Bicarbonate Venous 20.7 mmol/L (24.0-30.0); PCO2 Venous 51.7 mmHg (38-42); pH Blood Venous 7.26 (7.34-7.37)
[2023-08-17 02:33] LABS: Hematocrit 27.6 % (37.0-53.0); Mean Corpuscular HGB 32.4 pg (26.0-34.0); Mean Corpuscular HGB Conc 32.6 g/dL (31.5-36.5); Mean Corpuscular Volume 99 fL (80-100); Mean Platelet Volume 9.1 fL (9.1-12.4); NRBC ABSOLUTE 0.04 K/mm3 (0.00-0.02); NRBC Auto 0.8 /100 WBC (0.0-0.2); Platelet Count 279 K/mm3 (150-400); RDW Coefficient Variation 19.7 % (11.7-14.2); RDW Standard Deviation 62.7 fL (35.1-46.3); Red Blood Cell Count 2.78 M/mm3 (4.30-5.90); White Blood Cell Count 5.14 K/mm3 (4.00-11.30)
--- NOTE | 2023-08-17 02:45 | NUR ---
DOCTOR RISA NOTIFIED OF VBG, INCREASED VENT RATE TO 16, RT NOTIFIED. PLAN TO REPEAT VBG AT 0500. ORDER CLARIFIED CONTINUE PROTONIX DRIP AT THIS TIME. START NS AT 100/HR FOR 1500 CC.
[2023-08-17 02:52] LABS: Bun/Creatinine Ratio 30.3 (12.0-20.0); Calcium, Blood 8.6 mg/dL (8.5-10.1); Creatinine, Blood 1.42 mg/dL (0.60-1.20); Potassium, Blood 4.8 mmol/L (3.5-5.5)
[2023-08-17 02:54] LABS: BAND PERCENT MAN 26 % (0-8); BASOPHILS PERCENT MAN 0 % (0-2); EOSINOPHILS PERCENT MAN 0 % (0-6); LYMPHOCYTES PERCENT MAN 4 % (21-46); MONOCYTES ABSOLUTE MAN 0.77 K/mm3 (0.16-1.47); MONOCYTES PERCENT MAN 15 % (4-13); NEUTROPHILS ABSOLUTE MAN 4.16 K/mm3 (1.96-9.15); SEG NEUTROPHILS PERCENT MAN 55 % (41-73); TOTAL CELLS COUNTED 100
[2023-08-17 03:29] LABS: Source, Urine Foley catheter
[2023-08-17 03:45] LABS: Bilirubin, Urine Neg (Neg); Blood, Urine Neg (Neg); Glucose Qualitative, Urine Neg (Neg); Ketones, Urine Neg (Neg); Leukocyte Esterase, Urine Neg (Neg); Nitrite, Urine Neg (Neg); Protein, Urine 2+ (Neg); Specific Gravity, Urine 1.015 (1.003-1.022); Urobilinogen, Urine NORM (Normal)
[2023-08-17 03:56] LABS: Appearance, Urine Clear (Clear); Color, Urine Yellow (P-Yellow)
[2023-08-17 03:58] LABS: Amorphous Light (0-Heavy); Bacteria Rare /hpf; Mucus Light (0-Heavy); Red Blood Cells, Urine Not Seen /hpf (0-2); Squamous Epithelial Cells Few /hpf (Few); White Blood Cells, Urine 0-2 /hpf (0-5)
--- NOTE | 2023-08-17 05:23 | NUR ---
DOCTOR LORD LOOKING AT POST OP CHEST XRAY, ETT IN GOOD PLACEMENT. WILL ADVANCE NG 3 CM'S.
[2023-08-17 05:44] LABS: Base Excess Venous -3.4 mmol/L; Bicarbonate Venous 22.1 mmol/L (24.0-30.0); pH Blood Venous 7.42 (7.34-7.37)
--- NOTE | 2023-08-17 06:50 | NUR ---
SUMMARY PATIENT REMAINS INTUBATED AND SEDATED PROPOFOL INCREASED TO 40 MCG. MEDICATED FENTANYL ONCE DURING THE NIGHT. NG DRAINING BROWN/GREEN BILE. DRESSING TO MID ABD WITH JESSICA DRAIN INTACT. VENT AC 16, TV 500, PEEP 5, FIO2 30% LUNG SOUNDS REMAIN CLEAR.
--- NOTE | 2023-08-17 09:45 | NUR ---
ASSUMPTION OF CARE REPORT RECEIVED FROM NOC RN. PT RESTING IN BED. INTUBATED AND SEDATED, PROPOFOL INFUSING AT 40MCG/KG. PT RESPONSIVE TO NOXIOUS STIMULI. HR 100'S SINUS TACH, MAP > 65. VENTILATOR SETTINGS AC/VC 15/500/5/30%, OXYGEN SATURATION >95%. PT RIGHT ARM NOTED TO BE MORE SWOLLEN THAN THE LEFT. PER NOC RN REPORT, PT POWETGLIDE INFILTRATED DURING CT. BOWEL TONES ACTIVE IN ALL FOUR QUADRANTS, JESSICA DRESSING IN PLACE TO MID ABDOMEN, MINIMAL DISCHARGE TO DRESSING, OUTLINED. ROSALES PATENT DRAINING TO GRAVITY. PIV TO LUCAS, POWERGLIDE TO LUCAS.
[2023-08-17 13:27] LABS: Magnesium, Blood 2.9 mg/dL (1.6-2.4); Phosphorus, Blood 6.8 mg/dL (2.5-4.9)
--- NOTE | 2023-08-17 15:55 | NUR ---
ARRIVAL TO SURGICAL UNIT VIA WC, SBA TO HOSPITAL BED. ALERT, ORIENTED. NGT IN PLACE, SECURED TO GOWN & PLACED TO LIS. GREEN BILE RETURN NOTED. JESSICA TO MIDLINE ABD, SCANT DRNG APPEARS DRIED. ABD SOFT.
[2023-08-18 05:10] VITALS: BP 146/82
[2023-08-18 06:11] LABS: Bun/Creatinine Ratio 32.2 (12.0-20.0); Calcium, Blood 8.8 mg/dL (8.5-10.1); Creatinine, Blood 2.02 mg/dL (0.60-1.20); Magnesium, Blood 3.7 mg/dL (1.6-2.4); Phosphorus, Blood 5.2 mg/dL (2.5-4.9)
--- NOTE | 2023-08-18 07:07 | NUR ---
SHIFT SUMMARY POD 1 EX LAP, ISCH BOWEL. MIDLINE JESSICA DRESSING C/D/I SCANT SPOTS, NG IN PLACE DRAINING DARK GREEN, LOW INTERMIT. TPN RUNNING IN POWERGLIDE TO L UPPER ARM. PT ALSO HAS PERIPHERAL IV IN UPPER SHOULDER THAT HAS BEEN USED FOR PAIN MEDICATIONS. PT CONTINUES TO REQUEST IV MORPHINE 4MG Q2-3 HOURS FOR 8/10 PAIN, ICE PACK TO ABD FOR PAIN CONTROL ASSIST. ROSALES IN PLACE DRAINING YELLOW URINE. PT A&OX4, NO ACUTE CHANGES THIS SHIFT. CALL LIGHT W/IN REACH.
[2023-08-18 07:15] VITALS: BP 182/102
--- NOTE | 2023-08-18 11:45 | NUR ---
PAIN MANAGEMENT PT REPORTS PAIN IS ALMOST UNCHANGED FROM 2 DOSES OF FENTANYL. REPORTS FEELING DIZZY/FEELING LIKE FLOATING, & UNWELL FROM FENTANYL BUT NO REAL PAIN RELIEF. DISCUSSED w/ DR DAVIS.
[2023-08-18 12:43] VITALS: BP 175/100
[2023-08-18 13:21] VITALS: BP 155/91
[2023-08-18 14:32] VITALS: BP 143/87
--- NOTE | 2023-08-18 19:01 | NUR ---
SHIFT SUMMARY PT WAS ABLE TO GET UP TO CHAIR x 1 TODAY. STRUGGLED w/ PAIN MANAGEMENT BUT FEELS BETTER CONTROLLED w/ MORPHINE. NGT CONTINUES TO HAVE GREEN OUTPUT (750 MLS THIS SHIFT) BUT GREEN HAS SLIGHTLY LIGHTENED. HTN NOTED; HYDRALAZINE GIVEN. MOOD APPEARS BETTER THIS AFTERNOON & REPORTS HE FEELS IF HE IS MAKING PROGRESS HE REPORTS PASSING SMALL AMOUNTS OF GAS.
[2023-08-18 19:37] VITALS: BP 145/84
[2023-08-19 03:34] VITALS: BP 130/84
[2023-08-19 04:36] LABS: Hematocrit 23.2 % (37.0-53.0); Hemoglobin 7.4 g/dL (13.5-17.5); Mean Corpuscular HGB 31.9 pg (26.0-34.0); Mean Corpuscular HGB Conc 31.9 g/dL (31.5-36.5); Mean Corpuscular Volume 100 fL (80-100); NRBC ABSOLUTE 0.03 K/mm3 (0.00-0.02); NRBC Auto 0.4 /100 WBC (0.0-0.2); Platelet Count 270 K/mm3 (150-400); RDW Coefficient Variation 19.1 % (11.7-14.2); RDW Standard Deviation 67.1 fL (35.1-46.3); Red Blood Cell Count 2.32 M/mm3 (4.30-5.90); White Blood Cell Count 7.76 K/mm3 (4.00-11.30)
[2023-08-19 05:00] LABS: Magnesium, Blood 3.3 mg/dL (1.6-2.4)
[2023-08-19 05:06] LABS: Albumin, Blood 2.1 g/dL (3.4-5.0); Anion Gap 4 mmol/L (6-16); Blood Urea Nitrogen 46 mg/dL (8-24); Bun/Creatinine Ratio 38.3 (12.0-20.0); CO2, Blood 24 mmol/L (21-32); Calcium, Blood 8.9 mg/dL (8.5-10.1); Chloride, Blood 119 mmol/L (98-108); Glomerular Filtration Rate 66 (60-); Glucose, Blood 102 mg/dL (70-99); Potassium, Blood 3.8 mmol/L (3.5-5.5); Sodium, Blood 147 mmol/L (136-145)
[2023-08-19 05:26] LABS: BAND PERCENT MAN 2 % (0-8); BASOPHILS PERCENT MAN 0 % (0-2); EOSINOPHILS PERCENT MAN 0 % (0-6); LYMPHOCYTES ABSOLUTE MAN 0.46 K/mm3 (0.84-5.20); LYMPHOCYTES PERCENT MAN 6 % (21-46); MONOCYTES ABSOLUTE MAN 0.69 K/mm3 (0.16-1.47); MONOCYTES PERCENT MAN 9 % (4-13); NEUTROPHILS ABSOLUTE MAN 6.59 K/mm3 (1.96-9.15); SEG NEUTROPHILS PERCENT MAN 83 % (41-73); TOTAL CELLS COUNTED 100
[2023-08-19 05:32] LABS: Phosphorus, Blood 1.8 mg/dL (2.5-4.9)
--- NOTE | 2023-08-19 06:19 | NUR ---
SHIFT SUMMARY POD2 EX LAP ISCH BOWEL, MIDLINE JESSICA INTACT. POWERGLIDE TO L UPPER ARM INFUSING TPN, PERIPHERAL IV TO L SHOULDER REMOVED BY PT TUBING. NG TUBE IN PLACE W/ LOW INTER SUCTION. R ARM CONTINUES TO BE EDEMATOUS. ROSALES DRAINING YELLOW URINE. PT AMBULATED IN HALLWAY THIS SHIFT W/ FWW AND SBA W/ NURSING STAFF. TOLERATED WELL. MEPILEX INTACT TO COCCYX FOR PROTECTION. CBG'S DC'D FOR CONTINUED CBG'S <180, ONCOMING SHIFT TO VERIFY DC OF INSULIN. PT CONTINUES TO REQUEST MORPHINE IV FOR 6/10 PAIN EVERY 3-5 HOURS. PT TOLERATING ICE CHIPS. NO ACUTE CHANGES THIS SHIFT. CALL LIGHT W/ IN REACH.
[2023-08-19 07:28] VITALS: BP 146/83
[2023-08-19 12:20] LABS: Hematocrit 22.3 % (37.0-53.0); Hemoglobin 7.1 g/dL (13.5-17.5)
[2023-08-19 14:36] VITALS: BP 144/89
--- NOTE | 2023-08-19 15:08 | NUR ---
NGT CLAMPING TRIALS HAVE DONE 2 ONE HOUR LONG EPISODES OF CLAMPING NGT. PT HAS DENIED N/V, INCREASED PAIN OR BLOATING, & ABD DONESN'T APPEAR MORE DISTENDED PRIOR TO RECONNECTING TO LIS.
--- NOTE | 2023-08-19 17:43 | NUR ---
SHIFT SUMMARY PT HAS DONE WELL TODAY & REPORTS FEELING BETTER. DID EXPERIENCE HIGHER LEVELS OF PAIN AFTER THERAPY TODAY BUT ABLE TO AMBULATE w/ THERAPY. TOLERATED NGT CLAMPING TRIALS NOTED BEFORE & GOAL MADE OF 1 MORE OOB TO CHAIR OR WALK THIS AFTERNOON/EVENING IN WHICH HE WILL BE CLAMPED AGAIN.
[2023-08-19 18:17] LABS: Hematocrit 23.6 % (37.0-53.0); Hemoglobin 7.6 g/dL (13.5-17.5)
[2023-08-19 19:24] VITALS: BP 149/91
[2023-08-20 03:13] VITALS: BP 153/96
[2023-08-20 05:16] LABS: BASOPHILS ABSOLUTE AUTO 0.02 K/mm3 (0.00-0.23); BASOPHILS PERCENT AUTO 0 % (0-2); EOSINOPHILS PERCENT AUTO 5 % (0-6); Hemoglobin 7.7 g/dL (13.5-17.5); IMMATURE GRAN ABSOLUTE AUTO 0.09 K/mm3 (0.00-0.10); IMMATURE GRAN PERCENT AUTO 1 % (0-1); LYMPHOCYTES ABSOLUTE AUTO 0.53 K/mm3 (0.84-5.20); LYMPHOCYTES PERCENT AUTO 6 % (21-46); MONOCYTES PERCENT AUTO 13 % (4-13); Mean Corpuscular HGB 32.1 pg (26.0-34.0); Mean Corpuscular HGB Conc 30.8 g/dL (31.5-36.5); Mean Corpuscular Volume 104 fL (80-100); Mean Platelet Volume 10.7 fL (9.1-12.4); NEUTROPHILS ABSOLUTE AUTO 7.01 K/mm3 (1.96-9.15); NEUTROPHILS PERCENT AUTO 75 % (41-73); NRBC ABSOLUTE 0.02 K/mm3 (0.00-0.02); NRBC Auto 0.2 /100 WBC (0.0-0.2); Platelet Count 252 K/mm3 (150-400); RDW Coefficient Variation 18.5 % (11.7-14.2); RDW Standard Deviation 68.1 fL (35.1-46.3); White Blood Cell Count 9.35 K/mm3 (4.00-11.30)
[2023-08-20 05:50] LABS: Albumin, Blood 2.2 g/dL (3.4-5.0); Anion Gap 5 mmol/L (6-16); Blood Urea Nitrogen 29 mg/dL (8-24); Bun/Creatinine Ratio 33.8 (12.0-20.0); CO2, Blood 21 mmol/L (21-32); Calcium, Blood 8.6 mg/dL (8.5-10.1); Chloride, Blood 119 mmol/L (98-108); Creatinine, Blood 0.86 mg/dL (0.60-1.20); Glomerular Filtration Rate 95 (60-); Glucose, Blood 93 mg/dL (70-99); Magnesium, Blood 2.6 mg/dL (1.6-2.4); Phosphorus, Blood 2.1 mg/dL (2.5-4.9); Potassium, Blood 4.2 mmol/L (3.5-5.5); Sodium, Blood 145 mmol/L (136-145)
[2023-08-20 07:23] VITALS: BP 151/100
--- NOTE | 2023-08-20 07:51 | NUR ---
SUMMARY PT WITHOUT C/O NAUSEA TONIGHT.REPORTS PASSING FLATUS.REQUESTING IV PAIN MEDS Q 2 HR TONIGHT.FALLS ASLEEP WHILE GETTING DOSE OR SHORTLY AFTE.PT REPORTS PAIN IMPORVED TO LEVEL 6 STARTING COMPARED TO 8 LAST NIGHT.
--- NOTE | 2023-08-20 14:25 | NUR ---
Met with pt's S/O Katharine and the patient yesterday. He refuses to discuss his code status, or anything else regarding his care. Katharine states she has known him since they were teenagers, and that he has always been the "most stubborn person I've ever known". The patient has made it clear to staff he will not go to rehabilitation even if recommended by PT and/or his physician. He plans to go home upon discharge, and his s/o states she will help him as much as she is able. Discussed this with pt's bedside RN Robert today, who states the pt has been saying he was going to leave several times today, and only stayed after the hospitalist talked to him. Palliative care will remain available.
[2023-08-20 14:48] VITALS: BP 139/89
[2023-08-20 19:08] VITALS: BP 135/93
--- NOTE | 2023-08-20 19:31 | NUR ---
SHIFT SUMMARY ALERT, ORIENTED. SOMEWHAT IRRITABLE AND NON-COMPLIANT AT TIMES. NG TUBE TO LIS DURING AM, SMALL TO MOD AMOUNT OF OUTPUT, BILE GREEN. TRIALED CLAMPING FOR 3 HOURS IN AFTERNOON. TOLERATED WELL, NO NAUSEA OR VOMITING. HOOKED BACK TO SUCTION FOR 30 MINUTES, NO OUTPUT. DR OLIVAREZ GAVE ORDER TO DC. REMOVED WITHOUT INCIDENT, PATIENT TOLERATED WELL. BOWEL TONES PRESENT, PASSING GAS. TOLERATED CLEAR LIQUIDS SUBSEQUENTLY. VOIDING WELL. TPN CONTINUES TO INFUSE, PLAN TO DC AFTER DIET ADVANCED TO FULL LIQUID. MIDLINE ABD INCISION WNL WITH JESSICA WITH TWO SMALL SPOTS OF OLD DRAINAGE. PATIENT REPORTS SEVERE CHRONIC MUSCULOSKELETAL PAIN IN ADDITION TO ABD PAIN. MANAGED WITH 2-4 MG MORPHINE Q2 PRN PER EMAR. PLAN TO START ORAL PAIN MEDS TOMORROW. SBA UP TO RECLINER. USES URINAL. VSS. TWO EPISODE OF PATIENT BECOMING SEVERELY IRRITABLE, WITHDRAWN, AND DISENGAGED WITH CARE AND REFUSING TO SPEAK WITH NURSING STAFF. AT ONE POINT DEMANDING TO LEAVE AMA. DR OLIVAREZ HAD A CONVERSATION WITH PATIENT AND LEARNED THAT PATIENT IS OVERWHELMED AND EXHAUSTED BY CONTINUED PRESENCE OF EX-SIGNIFICANT OTHER PERSON NAMED LATASHA. LATASHA PRESENT AT BEDSIDE THROUGHOUT MOST OF DAY AND VERY INVOLED IN ALL CARE AND CONVERSATIONS. PATIENT REQUESTED THAT LATASHA'S VISITS BE RESTRICTED TO TWO 1-HOUR VISITS DURING DAY TIME. LATASHA WAS INFORMED OF PATIENT'S WISHES BY THIS RN AND ADVISED TO ABIDE BY VISIT RESTRICTION OTHERWISE SHE MAY BE ESCORTED FROM FACILITY BY SECURITY. LATASHA VERBALIZED UNDERSTANDING AND THEN LEFT FACILITY FOR THE EVENING. REPORT GIVEN TO BUSINESS OPERATIONS SPECIALIST RN.
[2023-08-21 03:52] VITALS: BP 154/90
[2023-08-21 04:54] LABS: BASOPHILS ABSOLUTE AUTO 0.04 K/mm3 (0.00-0.23); BASOPHILS PERCENT AUTO 0 % (0-2); EOSINOPHILS ABSOLUTE AUTO 0.48 K/mm3 (0.00-0.68); EOSINOPHILS PERCENT AUTO 3 % (0-6); Hematocrit 25.3 % (37.0-53.0); Hemoglobin 7.9 g/dL (13.5-17.5); IMMATURE GRAN PERCENT AUTO 2 % (0-1); LYMPHOCYTES ABSOLUTE AUTO 0.43 K/mm3 (0.84-5.20); LYMPHOCYTES PERCENT AUTO 3 % (21-46); MONOCYTES ABSOLUTE AUTO 2.15 K/mm3 (0.16-1.47); MONOCYTES PERCENT AUTO 14 % (4-13); Mean Corpuscular HGB 31.1 pg (26.0-34.0); Mean Corpuscular HGB Conc 31.2 g/dL (31.5-36.5); Mean Corpuscular Volume 100 fL (80-100); Mean Platelet Volume 10.7 fL (9.1-12.4); NEUTROPHILS ABSOLUTE AUTO 11.74 K/mm3 (1.96-9.15); NEUTROPHILS PERCENT AUTO 78 % (41-73); NRBC ABSOLUTE 0.05 K/mm3 (0.00-0.02); NRBC Auto 0.3 /100 WBC (0.0-0.2); Platelet Count 315 K/mm3 (150-400); RDW Coefficient Variation 17.6 % (11.7-14.2); RDW Standard Deviation 63.3 fL (35.1-46.3); Red Blood Cell Count 2.54 M/mm3 (4.30-5.90); White Blood Cell Count 15.14 K/mm3 (4.00-11.30)
[2023-08-21 05:31] LABS: Albumin, Blood 2.2 g/dL (3.4-5.0); Anion Gap 7 mmol/L (6-16); Blood Urea Nitrogen 21 mg/dL (8-24); Bun/Creatinine Ratio 29.2 (12.0-20.0); CO2, Blood 20 mmol/L (21-32); Chloride, Blood 112 mmol/L (98-108); Creatinine, Blood 0.72 mg/dL (0.60-1.20); Glomerular Filtration Rate 100 (60-); Glucose, Blood 96 mg/dL (70-99); Phosphorus, Blood 2.5 mg/dL (2.5-4.9); Potassium, Blood 4.4 mmol/L (3.5-5.5); Sodium, Blood 139 mmol/L (136-145)
--- NOTE | 2023-08-21 06:11 | NUR ---
PT EXPERIENCED NO ACUTE EVENTS THIS SHIFT, VSS. PT WAS IRRITABLE WITH STAFF WHEN HE DIDN'T RECIEVE HIS PAIN MEDICATIONS WHEN HE REQUESTED THEM EARLIER IN THE SHIFT. THIS RN EXPLAINED THAT THE DELAY WAS DUE TO THIS RN TAKING CARE OF ANOTHER PATIENT AT THE TIME. PT WAS UPSET REGARDLESS AND WAS RUDE TO THIS RN AND OTHER STAFF ON THE FLOOR. THIS RN EDUCATED THE PATIENT ABOUT TREATING STAFF WITH RESPECT AND THAT THIS RN WOULD BE IN SOON POSSIBLE WHENEVER HE CALLED FOR PAIN MEDICATION, PER EMAR. NO OTHER EVENTS OR COMPLAINTS PER PATIENT THIS SHIFT.
[2023-08-21 07:34] VITALS: BP 145/86
[2023-08-21 15:25] VITALS: BP 115/82
[2023-08-21] MEDS ORDERED: TRELEGY ELLIPT1 EACH INH (17:01)
[2023-08-21] MEDS ORDERED: PANT40 PO (17:01)
[2023-08-21] MEDS ORDERED: ONDA4ODT PO (17:01)
[2023-08-21] MEDS ORDERED: SERT100 PO (17:02)
[2023-08-21] MEDS ORDERED: MIRALAX17 GM PO (17:02)
[2023-08-21] MEDS ORDERED: HYDROCODONE-AC1 EA10 PO (17:02)
[2023-08-21] MEDS ORDERED: ALBU90OI INH (17:03)
--- NOTE | 2023-08-21 17:35 | NUR ---
DISCHARGE NOTE: PATIENT AND PATIENTS EX WERE EDUCATED ON DISCHARGE INSTRUCTIONS. BOTH VERBALIZED UNDERSTANDING OF DISCHARGE INSTRUCTIONS AND HAD NO FURTHER QUESTIONS AT THIS TIME. PAIN IS MANAGED WITH PO PAIN MEDS. HARD PERSCRIPTION WAS GIVEN TO EX WITH EXTRA MEDIPORE DRESSINGS FOR OVER HIS ZOEY. PATIENTS ABD HAS A MIDLINE INCISION WITH ZOEY WITH A MEDIPORE DRESSING OVER IT THAT IS C/D/I. HE DENIES NAUSEA OR VOMITING. HE IS TOLERATING HIS FULL LIQUID DIET. HE IS VOIDING AND PASSING FLATUS. HE IS GETTING DRESSED AND GATHERING HIS PERSONAL ITEMS IN THE ROOM.
--- NOTE | 2023-08-21 17:42 | NUR ---
PATIENT IS BEING WHEELCHAIRED OUT TO HIS EX WIFES CAR TO BE TAKEN HOME.
== END 2023-08-21 17:43 | disposition home health service (06) | DRG 326 ==
LOC: ER 04:46 → ICUE 09:19 → SURS 09:19 → MEDS 09:19 → PCU 09:19 → MEDS 08-16 14:40 → ICUE 08-16 23:05 → SURS 08-17 16:11
PROVIDERS: Emergency Medicine; Family Medicine; Internal Medicine; Nurse Practitioner Acute Care; Surgery; ADMIT Internal Medicine
PROC: 30233N1 Transfusion of Nonautologous Red Blood Cells into Peripheral Vein, Percutaneous Approach (ICD-10-PCS; 2023-08-14)
PROC: 0D960ZZ Drainage of Stomach, Open Approach (ICD-10-PCS; principal; 2023-08-17)
PROC: 0W3P8ZZ Control Bleeding in Gastrointestinal Tract, Via Natural or Artificial Opening Endoscopic (ICD-10-PCS; 2023-08-17)
PROC: 0D9670Z Drainage of Stomach with Drainage Device, Via Natural or Artificial Opening (ICD-10-PCS; 2023-08-17)
PROC: 0DH67UZ Insertion of Feeding Device into Stomach, Via Natural or Artificial Opening (ICD-10-PCS; 2023-08-18)
DX: K31.82 Dieulafoy lesion (hemorrhagic) of stomach and duodenum (principal); E43 Unspecified severe protein-calorie malnutrition; J95.821 Acute postprocedural respiratory failure; K31.1 Adult hypertrophic pyloric stenosis; K55.9 Vascular disorder of intestine, unspecified; K56.609 Unspecified intestinal obstruction, unspecified as to partial versus complete obstruction; D62 Acute posthemorrhagic anemia; N17.9 Acute kidney failure, unspecified; J44.1 Chronic obstructive pulmonary disease with (acute) exacerbation; K56.0 Paralytic ileus; Z68.1 Body mass index [BMI] 19.9 or less, adult; K21.9 Gastro-esophageal reflux disease without esophagitis; F17.210 Nicotine dependence, cigarettes, uncomplicated; I27.20 Pulmonary hypertension, unspecified; E86.1 Hypovolemia; E83.39 Other disorders of phosphorus metabolism; E11.9 Type 2 diabetes mellitus without complications; F12.90 Cannabis use, unspecified, uncomplicated; H91.91 Unspecified hearing loss, right ear; F32.A Depression, unspecified; D50.9 Iron deficiency anemia, unspecified; E88.09 Other disorders of plasma-protein metabolism, not elsewhere classified; K44.9 Diaphragmatic hernia without obstruction or gangrene; Z85.828 Personal history of other malignant neoplasm of skin; Z98.49 Cataract extraction status, unspecified eye; Z88.5 Allergy status to narcotic agent; Z88.8 Allergy status to other drugs, medicaments and biological substances; Z79.899 Other long term (current) drug therapy; Z87.442 Personal history of urinary calculi; Z87.19 Personal history of other diseases of the digestive system; Z98.890 Other specified postprocedural states; Z86.718 Personal history of other venous thrombosis and embolism
CPT/HCPCS: 31720; 36415; 36430; 71045; 71046; 74018; 74174; 74177; 80048; 80053; 80069; 81001; 82728; 82803; 82947; 83540; 83550; 83605; 83690; 83735; 84100; 84443; 84484; 85014; 85018; 85025; 85027; 85610; 85730; 86850; 86900; 86901; 86923; 93005; 93010; 94002; 94640; 94664; 94760; 94762; 97110; 97116; 97161; 97166; 97530; 97535; 99285-25; A9270; C1751; C9113; J0360; J0612; J0690; J1100; J2270; J2405; J2704; J3010; J3411; J3475; J3480; J7030; J7040; J7060; J7070; J7120; J7131; P9016; Q9967

== ENCOUNTER 2023-09-24 13:58 | Emergency (ER) | payer MEDICARE, OTHER ==
[~2023-09-24] VITALS: Ht 182.9 cm; Wt 52.2 kg
[~2023-09-24 13:58] MED LIST changes: +HYDROCODONE-AC1 EA10 PO; +MIRALAX17 GM PO; +ONDA4ODT PO; +PANT40 PO; +SERT100 PO; +ZOLOFT10013 PO
[2023-09-24 15:40] LABS: BASOPHILS ABSOLUTE AUTO 0.08 K/mm3 (0.00-0.23); BASOPHILS PERCENT AUTO 1 % (0-2); EOSINOPHILS PERCENT AUTO 4 % (0-6); Hematocrit 33.5 % (37.0-53.0); Hemoglobin 10.5 g/dL (13.5-17.5); IMMATURE GRAN ABSOLUTE AUTO 0.04 K/mm3 (0.00-0.10); IMMATURE GRAN PERCENT AUTO 0 % (0-1); LYMPHOCYTES ABSOLUTE AUTO 1.05 K/mm3 (0.84-5.20); LYMPHOCYTES PERCENT AUTO 9 % (21-46); MONOCYTES ABSOLUTE AUTO 0.96 K/mm3 (0.16-1.47); MONOCYTES PERCENT AUTO 8 % (4-13); Mean Corpuscular HGB 28.5 pg (26.0-34.0); Mean Corpuscular HGB Conc 31.3 g/dL (31.5-36.5); Mean Corpuscular Volume 91 fL (80-100); NEUTROPHILS ABSOLUTE AUTO 9.05 K/mm3 (1.96-9.15); NEUTROPHILS PERCENT AUTO 78 % (41-73); Platelet Count 333 K/mm3 (150-400); RDW Coefficient Variation 16.2 % (11.7-14.2); RDW Standard Deviation 54.8 fL (35.1-46.3); Red Blood Cell Count 3.68 M/mm3 (4.30-5.90); White Blood Cell Count 11.68 K/mm3 (4.00-11.30)
[2023-09-24 15:42] VITALS: BP 149/93
[2023-09-24 15:58] LABS: Albumin, Blood 3.3 g/dL (3.4-5.0); Albumin/Globulin Ratio 0.9 (0.8-1.8); Bilirubin, Total 0.3 mg/dL (0.1-1.0); Bun/Creatinine Ratio 17.6 (12.0-20.0); Calcium, Blood 9.2 mg/dL (8.5-10.1); Creatinine, Blood 0.85 mg/dL (0.60-1.20); Globulin, Blood 3.8 g/dL (2.2-4.0); Potassium, Blood 3.7 mmol/L (3.5-5.5); Total Protein, Blood 7.1 g/dL (6.4-8.2)
== END 2023-09-24 16:15 | disposition home or self-care (01) ==
LOC: ER 13:58
PROVIDERS: Physician Assistant
DX: Z48.89 Encounter for other specified surgical aftercare (principal); Z53.21 Procedure and treatment not carried out due to patient leaving prior to being seen by health care provider
CPT/HCPCS: 80053; 83690; 85025; 96374; 99283-25; J2405; J7030

== ENCOUNTER 2024-06-17 03:43 | Day surgery (SDC) | payer MEDICARE, OTHER ==
[~2024-06-17 03:43] MED LIST changes: +Inderal40 MG PO; +LOSA50 PO; -ONDA4ODT PO; +Ondansetron Odt8 MG PO; +Vancomycin1 GM/2501 IV
[2024-06-17 10:14] VITALS: BP 146/92
--- NOTE | 2024-06-17 10:24 | NUR ---
PT ARRIVES TO [facility] 30 MINUTES LATE, STATING THAT HE HAD A HARD TIME GETTING HERE AND STATES THAT "I SHOULD NOT BE DRIVING" PT APPEARS FRAIL AND WEAK, WANTING TO KNOW IF HE SHOULD GO TO THE ER AFTER HIS INFUSION? PT STATES THAT HE FEELS " IF I AM SLOWLY DYING" PT WANTING TO BE TRANSFERED TO ER AND POSSIBLY GO TO REHAB FOR HELP. WILL TAKE PT TO ER AFTER THIS INFUSION.
[2024-06-17 11:11] LABS: Creatinine, Blood 0.96 mg/dL (0.60-1.20); Vancomycin, Trough 16.2 ug/mL (5.0-10.0)
[2024-06-17] MEDS ORDERED: Vancomycin HCL 750 MG in NS 250 ML IV SCH (11:20)
[2024-06-17] MEDS ORDERED: Vancomycin HCL 1,000 MG in NS 250 ML IV SCH (11:25)
[2024-06-24] MEDS ORDERED: NAPR550 PO (00:48)
[2024-06-24] MEDS ORDERED: FAMO20 PO (00:49)
[2024-06-24] MEDS ORDERED: GABA100 PO (00:57)
[2024-06-26] MEDS ORDERED: FOLI1 PO (12:42)
[2024-06-26] MEDS ORDERED: RIFA300 PO (12:43)
[2024-06-26] MEDS ORDERED: LOPE2C PO (12:43)
[2024-06-26] MEDS ORDERED: VISBIOME 112.51 EACH PO (12:44)
[2024-06-26] MEDS ORDERED: VITAMIN C125 MG PO (12:44)
[2024-06-26] MEDS ORDERED: FEROSUL325 M1 PO (12:45)
== END 2024-06-17 12:29 | disposition home or self-care (01) ==
LOC: ATC 03:43
PROVIDERS: Specialist
DX: T81.42XA Infection following a procedure, deep incisional surgical site, initial encounter (principal); M43.22 Fusion of spine, cervical region; B95.62 Methicillin resistant Staphylococcus aureus infection as the cause of diseases classified elsewhere; R78.81 Bacteremia; Z88.8 Allergy status to other drugs, medicaments and biological substances
CPT/HCPCS: 80202; 82565; 96365; J3370; J7050

== ENCOUNTER 2024-06-18 02:44 | Day surgery (SDC) | payer MEDICARE, OTHER ==
[~2024-06-18 02:44] MED LIST changes: +Vancomycin HCL 1,000 MG in NS 250 ML IV SCH
[2024-06-18 08:59] VITALS: BP 153/99
[2024-06-24] MEDS ORDERED: NAPR550 PO (00:48)
[2024-06-24] MEDS ORDERED: FAMO20 PO (00:49)
[2024-06-24] MEDS ORDERED: GABA100 PO (00:57)
[2024-06-26] MEDS ORDERED: FOLI1 PO (12:42)
[2024-06-26] MEDS ORDERED: RIFA300 PO (12:43)
[2024-06-26] MEDS ORDERED: LOPE2C PO (12:43)
[2024-06-26] MEDS ORDERED: VISBIOME 112.51 EACH PO (12:44)
[2024-06-26] MEDS ORDERED: VITAMIN C125 MG PO (12:44)
[2024-06-26] MEDS ORDERED: FEROSUL325 M1 PO (12:45)
== END 2024-06-18 10:06 | disposition home or self-care (01) ==
LOC: ATC 02:44
DX: T81.42XA Infection following a procedure, deep incisional surgical site, initial encounter (principal); M43.22 Fusion of spine, cervical region; B95.62 Methicillin resistant Staphylococcus aureus infection as the cause of diseases classified elsewhere; R78.81 Bacteremia; I48.91 Unspecified atrial fibrillation; J44.9 Chronic obstructive pulmonary disease, unspecified; K21.9 Gastro-esophageal reflux disease without esophagitis; I10 Essential (primary) hypertension; G62.9 Polyneuropathy, unspecified; Z88.8 Allergy status to other drugs, medicaments and biological substances
CPT/HCPCS: 96365; J3370; J7050

== ENCOUNTER 2024-06-19 09:20 | Day surgery (SDC) | payer MEDICARE, OTHER ==
[2024-06-19 09:32] VITALS: BP 149/94
[2024-06-19 09:53] LABS: Creatinine, Blood 0.89 mg/dL (0.60-1.20); Vancomycin, Trough 19.1 ug/mL (5.0-10.0)
[2024-06-19] MEDS ORDERED: Vancomycin HCL 750 MG in NS 250 ML IV SCH (10:00)
[2024-06-24] MEDS ORDERED: NAPR550 PO (00:48)
[2024-06-24] MEDS ORDERED: FAMO20 PO (00:49)
[2024-06-24] MEDS ORDERED: GABA100 PO (00:57)
[2024-06-26] MEDS ORDERED: FOLI1 PO (12:42)
[2024-06-26] MEDS ORDERED: LOPE2C PO (12:43)
[2024-06-26] MEDS ORDERED: RIFA300 PO (12:43)
[2024-06-26] MEDS ORDERED: VISBIOME 112.51 EACH PO (12:44)
[2024-06-26] MEDS ORDERED: VITAMIN C125 MG PO (12:44)
[2024-06-26] MEDS ORDERED: FEROSUL325 M1 PO (12:45)
== END 2024-06-19 11:03 | disposition home or self-care (01) ==
LOC: ATC 09:20
PROVIDERS: Specialist
DX: T81.42XA Infection following a procedure, deep incisional surgical site, initial encounter (principal); M43.22 Fusion of spine, cervical region; B95.62 Methicillin resistant Staphylococcus aureus infection as the cause of diseases classified elsewhere; R78.81 Bacteremia; Z88.8 Allergy status to other drugs, medicaments and biological substances; Z72.0 Tobacco use
CPT/HCPCS: 80202; 82565; 96365; J3370; J7050

== ENCOUNTER 2024-06-20 03:14 | Day surgery (SDC) | payer MEDICARE, OTHER ==
[~2024-06-20 03:14] MED LIST changes: -Vancomycin HCL 1,000 MG in NS 250 ML IV SCH
[2024-06-20] MEDS ORDERED: Vancomycin HCL 750 MG in NS 250 ML IV SCH (06:55)
[2024-06-20 09:38] VITALS: BP 154/90
[2024-06-20 10:03] LABS: BASOPHILS ABSOLUTE AUTO 0.05 K/mm3 (0.00-0.23); BASOPHILS PERCENT AUTO 0 % (0-2); EOSINOPHILS ABSOLUTE AUTO 0.05 K/mm3 (0.00-0.68); EOSINOPHILS PERCENT AUTO 0 % (0-6); Hematocrit 26.4 % (37.0-53.0); Hemoglobin 8.3 g/dL (13.5-17.5); IMMATURE GRAN PERCENT AUTO 1 % (0-1); LYMPHOCYTES ABSOLUTE AUTO 0.84 K/mm3 (0.84-5.20); LYMPHOCYTES PERCENT AUTO 6 % (21-46); MONOCYTES PERCENT AUTO 10 % (4-13); Mean Corpuscular HGB 25.8 pg (26.0-34.0); Mean Corpuscular HGB Conc 31.4 g/dL (31.5-36.5); Mean Corpuscular Volume 82 fL (80-100); Mean Platelet Volume 8.4 fL (9.1-12.4); NEUTROPHILS ABSOLUTE AUTO 11.26 K/mm3 (1.96-9.15); NEUTROPHILS PERCENT AUTO 82 % (41-73); Platelet Count 560 K/mm3 (150-400); RDW Coefficient Variation 20.2 % (11.7-14.2); RDW Standard Deviation 60.3 fL (35.1-46.3); Red Blood Cell Count 3.22 M/mm3 (4.30-5.90)
[2024-06-20 11:24] LABS: Albumin, Blood 2.3 g/dL (3.4-5.0); Albumin/Globulin Ratio 0.5 (0.8-1.8); Bilirubin, Total 1.4 mg/dL (0.1-1.0); C-REACTIVE PROTEIN, EXT RANGE 8.37 mg/dL (0.000-0.300); Globulin, Blood 4.7 g/dL (2.2-4.0); Potassium, Blood 3.7 mmol/L (3.5-5.5)
--- NOTE | 2024-06-20 12:02 | NUR ---
PT DISCHARGED FROM [facility] AT 1043 BUT REQUESTED W/C RIDE TO ER FOR AN MD TO EVALUATE HIS RIGHT SIDED WEAKNESS. PT STATES HE THINKS IT IS RELATED TO HIS RECENT NECK SURGERY, BUT THE WEAKNESS IS GETTING WORSE INSTEAD OF BETTER EVEN THOUGH HE IS ALSO ON GABAPENTIN TO HELP WITH ANY NEUROPATHY. PT ESCORTED TO ER AND CHECKED IN AT 1046.
[2024-06-24] MEDS ORDERED: NAPR550 PO (00:48)
[2024-06-24] MEDS ORDERED: FAMO20 PO (00:49)
[2024-06-24] MEDS ORDERED: GABA100 PO (00:57)
[2024-06-26] MEDS ORDERED: FOLI1 PO (12:42)
[2024-06-26] MEDS ORDERED: RIFA300 PO (12:43)
[2024-06-26] MEDS ORDERED: LOPE2C PO (12:43)
[2024-06-26] MEDS ORDERED: VISBIOME 112.51 EACH PO (12:44)
[2024-06-26] MEDS ORDERED: VITAMIN C125 MG PO (12:44)
[2024-06-26] MEDS ORDERED: FEROSUL325 M1 PO (12:45)
[2024-07-02] MEDS ORDERED: OXYC5 PO (11:10)
== END 2024-06-20 10:43 | disposition home or self-care (01) ==
LOC: ATC 03:14
PROVIDERS: Specialist
DX: T81.42XA Infection following a procedure, deep incisional surgical site, initial encounter (principal); M43.22 Fusion of spine, cervical region; B95.62 Methicillin resistant Staphylococcus aureus infection as the cause of diseases classified elsewhere; R78.81 Bacteremia; I10 Essential (primary) hypertension; Z79.899 Other long term (current) drug therapy; Z88.8 Allergy status to other drugs, medicaments and biological substances
CPT/HCPCS: 80053; 85025; 85651; 86140; 96365; J3370; J7050

== ENCOUNTER 2024-06-20 10:48 | Emergency (ER) | payer MEDICARE, OTHER ==
[~2024-06-20] VITALS: Ht 182.9 cm; Wt 61.2 kg
[2024-06-20 11:05] VITALS: BP 163/107
[2024-06-20 11:49] LABS: BASOPHILS ABSOLUTE AUTO 0.06 K/mm3 (0.00-0.23); BASOPHILS PERCENT AUTO 0 % (0-2); EOSINOPHILS PERCENT AUTO 1 % (0-6); Hematocrit 26.4 % (37.0-53.0); Hemoglobin 8.3 g/dL (13.5-17.5); IMMATURE GRAN PERCENT AUTO 1 % (0-1); LYMPHOCYTES ABSOLUTE AUTO 0.63 K/mm3 (0.84-5.20); LYMPHOCYTES PERCENT AUTO 5 % (21-46); MONOCYTES ABSOLUTE AUTO 1.25 K/mm3 (0.16-1.47); MONOCYTES PERCENT AUTO 9 % (4-13); Mean Corpuscular HGB 26.3 pg (26.0-34.0); Mean Corpuscular HGB Conc 31.4 g/dL (31.5-36.5); Mean Corpuscular Volume 84 fL (80-100); Mean Platelet Volume 8.4 fL (9.1-12.4); NEUTROPHILS ABSOLUTE AUTO 11.82 K/mm3 (1.96-9.15); NEUTROPHILS PERCENT AUTO 85 % (41-73); Platelet Count 510 K/mm3 (150-400); RDW Coefficient Variation 20.6 % (11.7-14.2); RDW Standard Deviation 62.9 fL (35.1-46.3); Red Blood Cell Count 3.16 M/mm3 (4.30-5.90); White Blood Cell Count 13.96 K/mm3 (4.00-11.30)
[2024-06-20 12:06] LABS: Albumin, Blood 2.2 g/dL (3.4-5.0); Albumin/Globulin Ratio 0.5 (0.8-1.8); Bilirubin, Total 1.3 mg/dL (0.1-1.0); Bun/Creatinine Ratio 15.9 (12.0-20.0); Calcium, Blood 8.9 mg/dL (8.5-10.1); Creatinine, Blood 0.88 mg/dL (0.60-1.20); Globulin, Blood 4.6 g/dL (2.2-4.0); Potassium, Blood 3.8 mmol/L (3.5-5.5); Total Protein, Blood 6.8 g/dL (6.4-8.2)
[2024-06-24] MEDS ORDERED: NAPR550 PO (00:48)
[2024-06-24] MEDS ORDERED: FAMO20 PO (00:49)
[2024-06-24] MEDS ORDERED: GABA100 PO (00:57)
[2024-06-26] MEDS ORDERED: FOLI1 PO (12:42)
[2024-06-26] MEDS ORDERED: LOPE2C PO (12:43)
[2024-06-26] MEDS ORDERED: RIFA300 PO (12:43)
[2024-06-26] MEDS ORDERED: VISBIOME 112.51 EACH PO (12:44)
[2024-06-26] MEDS ORDERED: VITAMIN C125 MG PO (12:44)
[2024-06-26] MEDS ORDERED: FEROSUL325 M1 PO (12:45)
[2024-07-02] MEDS ORDERED: OXYC5 PO (11:10)
== END 2024-06-20 12:28 | disposition left against medical advice (07) ==
LOC: ER 10:48
PROVIDERS: Physician Assistant
DX: R53.1 Weakness (principal); Z53.21 Procedure and treatment not carried out due to patient leaving prior to being seen by health care provider
CPT/HCPCS: 72126; 80053; 85025; 99282-25; Q9967

== ENCOUNTER 2024-06-21 03:34 | Day surgery (SDC) | payer MEDICARE, OTHER ==
[2024-06-21 09:40] VITALS: BP 136/88
[2024-06-21] MEDS ORDERED: Vancomycin HCL 750 MG in NS 250 ML IV SCH (10:40)
[2024-06-24] MEDS ORDERED: NAPR550 PO (00:48)
[2024-06-24] MEDS ORDERED: FAMO20 PO (00:49)
[2024-06-24] MEDS ORDERED: GABA100 PO (00:57)
[2024-06-26] MEDS ORDERED: FOLI1 PO (12:42)
[2024-06-26] MEDS ORDERED: LOPE2C PO (12:43)
[2024-06-26] MEDS ORDERED: RIFA300 PO (12:43)
[2024-06-26] MEDS ORDERED: VITAMIN C125 MG PO (12:44)
[2024-06-26] MEDS ORDERED: VISBIOME 112.51 EACH PO (12:44)
[2024-06-26] MEDS ORDERED: FEROSUL325 M1 PO (12:45)
== END 2024-06-21 11:30 | disposition home or self-care (01) ==
LOC: ATC 03:34
PROVIDERS: Specialist
DX: T81.42XA Infection following a procedure, deep incisional surgical site, initial encounter (principal); M43.22 Fusion of spine, cervical region; B95.62 Methicillin resistant Staphylococcus aureus infection as the cause of diseases classified elsewhere; R78.81 Bacteremia; Z88.8 Allergy status to other drugs, medicaments and biological substances
CPT/HCPCS: 80202; 82565; 96365; J3370; J7050

== ENCOUNTER 2024-06-23 02:43 | Day surgery (SDC) | payer MEDICARE, OTHER ==
[2024-06-23] MEDS ORDERED: Vancomycin HCL 750 MG in NS 250 ML IV SCH (06:00)
[2024-06-23 11:12] VITALS: BP 110/77
--- NOTE | 2024-06-23 12:39 | NUR ---
PATIENT ARRIVED TODAY LATE FOR HIS APPT. HE SAID THAT HE COULDNT WALK AND HAD TO CRAWL TO HIS CAR TO GET HERE TODAY. HE REPORTS THAT HE KEEPS FALLING AT HOME. PATIENT IS BREATHING HEAVY. VSS. HE ANSWERS QUESTIONS APPROPRIATELY BUT SLOW TO RESPOND. BAG MAKING MACHINE OPERATOR EQUAL, PUPILS EQUAL, SPEECH CLEAR. ABLE TO TRANSFER TO WHEELCHAIR. HE IS SLOUCHED OVER DURING ENTIRE INFUSION WITH INCREASED PAIN PER PT REPORT. HE WENT TO ER TWO DAYS AGO BUT LEFT WITHOUT BEING EVALUATED. TODAY HE AGREES TO GO TO ER AND STAY FOR EVALUATION. FREDDY TAI WHEELED HIM UP TO ER AND CHECKED HIM IN. PATIENT CALLED FRIEND TO SENIOR ACCOUNTING ASSOCIATE HIS TRUCK AND FRIEND SAID HE WOULD CHECK BACK IN WITH PATIENT IN A FEW HOURS.
[2024-06-24] MEDS ORDERED: NAPR550 PO (00:48)
[2024-06-24] MEDS ORDERED: FAMO20 PO (00:49)
[2024-06-24] MEDS ORDERED: GABA100 PO (00:57)
[2024-06-26] MEDS ORDERED: FOLI1 PO (12:42)
[2024-06-26] MEDS ORDERED: LOPE2C PO (12:43)
[2024-06-26] MEDS ORDERED: RIFA300 PO (12:43)
[2024-06-26] MEDS ORDERED: VISBIOME 112.51 EACH PO (12:44)
[2024-06-26] MEDS ORDERED: VITAMIN C125 MG PO (12:44)
[2024-06-26] MEDS ORDERED: FEROSUL325 M1 PO (12:45)
== END 2024-06-23 12:10 | disposition home or self-care (01) ==
LOC: ATC 02:43
DX: T81.42XA Infection following a procedure, deep incisional surgical site, initial encounter (principal); B95.62 Methicillin resistant Staphylococcus aureus infection as the cause of diseases classified elsewhere; R78.81 Bacteremia; I48.91 Unspecified atrial fibrillation; J44.9 Chronic obstructive pulmonary disease, unspecified; K21.9 Gastro-esophageal reflux disease without esophagitis; I10 Essential (primary) hypertension; Z88.8 Allergy status to other drugs, medicaments and biological substances; Z79.899 Other long term (current) drug therapy
CPT/HCPCS: 96365; J3370; J7050

== ENCOUNTER 2024-06-23 12:14 | Inpatient (IN) | payer MEDICARE, OTHER ==
[~2024-06-23] VITALS: Ht 182.9 cm; Wt 56.0 kg
[2024-06-23 13:02] LABS: BASOPHILS ABSOLUTE AUTO 0.06 K/mm3 (0.00-0.23); BASOPHILS PERCENT AUTO 1 % (0-2); EOSINOPHILS ABSOLUTE AUTO 0.16 K/mm3 (0.00-0.68); EOSINOPHILS PERCENT AUTO 1 % (0-6); Hematocrit 28.6 % (37.0-53.0); Hemoglobin 8.9 g/dL (13.5-17.5); IMMATURE GRAN ABSOLUTE AUTO 0.08 K/mm3 (0.00-0.10); IMMATURE GRAN PERCENT AUTO 1 % (0-1); LYMPHOCYTES ABSOLUTE AUTO 0.89 K/mm3 (0.84-5.20); LYMPHOCYTES PERCENT AUTO 7 % (21-46); MONOCYTES ABSOLUTE AUTO 1.07 K/mm3 (0.16-1.47); MONOCYTES PERCENT AUTO 8 % (4-13); Mean Corpuscular HGB 25.7 pg (26.0-34.0); Mean Corpuscular HGB Conc 31.1 g/dL (31.5-36.5); Mean Corpuscular Volume 83 fL (80-100); Mean Platelet Volume 8.3 fL (9.1-12.4); NEUTROPHILS ABSOLUTE AUTO 10.79 K/mm3 (1.96-9.15); NEUTROPHILS PERCENT AUTO 83 % (41-73); NRBC ABSOLUTE 0.02 K/mm3 (0.00-0.02); NRBC Auto 0.2 /100 WBC (0.0-0.2); Platelet Count 597 K/mm3 (150-400); RDW Coefficient Variation 20.4 % (11.7-14.2); RDW Standard Deviation 61.6 fL (35.1-46.3); Red Blood Cell Count 3.46 M/mm3 (4.30-5.90); White Blood Cell Count 13.05 K/mm3 (4.00-11.30)
[2024-06-23 13:34] LABS: Albumin, Blood 2.2 g/dL (3.4-5.0); Albumin/Globulin Ratio 0.5 (0.8-1.8); Bilirubin, Total 0.5 mg/dL (0.1-1.0); Bun/Creatinine Ratio 20.3 (12.0-20.0); Calcium, Blood 8.7 mg/dL (8.5-10.1); Creatinine, Blood 1.33 mg/dL (0.60-1.20); Globulin, Blood 4.7 g/dL (2.2-4.0); Potassium, Blood 3.9 mmol/L (3.5-5.5); Total Protein, Blood 6.9 g/dL (6.4-8.2)
[2024-06-23] MEDS ORDERED: Morphine Sulfate 4 MG/1 ML Injection IV ONE (17:45)
[2024-06-23] MEDS ORDERED: FentaNYL Citrate 50 MCG/ML 2 ML Injection IV ONE (19:00)
[2024-06-23] MEDS ORDERED: Tiotropium Bromide 2.5 MCG/ACT MIST INHAL (10 ACT/4 GM) INH SCH (19:10)
[2024-06-23] MEDS ORDERED: Albuterol 2.5 MG/3 ML VIAL INH PRN (19:15)
[2024-06-23] MEDS ORDERED: Acetaminophen 325 MG TABLET PO PRN (19:15)
[2024-06-23] MEDS ORDERED: Ondansetron HCl 2 MG / ML 2ML Vial IV PRN (19:15)
[2024-06-23] MEDS ORDERED: Aspirin 81 MG Chew PO ONE (19:15)
[2024-06-23] MEDS ORDERED: NS 1,000 ML IV SCH (19:20)
[2024-06-23] MEDS ORDERED: OxyCODONE HCL 5 MG TAB PO PRN (19:20)
[2024-06-23] MEDS ORDERED: HydrALAZINE HCl 20 MG / ML 1ML Vial IV PRN (19:25)
[2024-06-23] MEDS ORDERED: Mometasone/Formoterol MDI 200/5 mcg 13 GM INH SCH (19:40)
[2024-06-23] MEDS ORDERED: Vancomycin HCL 1,250 MG in NS 250 ML IV ONE (19:55)
[2024-06-23] MEDS ORDERED: Lactobacil 2-S.Thermo-Bifido 1 1 Cap PO SCH (21:00)
[2024-06-23 22:06] VITALS: BP 177/115
[2024-06-24] MEDS ORDERED: NAPR550 PO ×2 (00:48)
[2024-06-24] MEDS ORDERED: FAMO20 PO ×2 (00:49)
[2024-06-24] MEDS ORDERED: GABA100 PO ×2 (00:57)
[2024-06-24 03:23] VITALS: BP 142/100
[2024-06-24 04:00] LABS: U Amphetamine Screen DETECTED; U Barbituate Screen Not Detected; U Benzodiazapine Screen DETECTED; U Buprenorphine Screen Not Detected; U Cannabinoids Screen Not Detected; U Cocaine Screen Not Detected; U Methadone Screen Not Detected; U Methamphetamine Screen DETECTED; U Opiates Screen DETECTED; U Oxycodone Screen DETECTED; U Phencyclidine Screen Not Detected
[2024-06-24 05:16] LABS: BASOPHILS ABSOLUTE AUTO 0.07 K/mm3 (0.00-0.23); BASOPHILS PERCENT AUTO 1 % (0-2); EOSINOPHILS ABSOLUTE AUTO 0.21 K/mm3 (0.00-0.68); EOSINOPHILS PERCENT AUTO 2 % (0-6); Hematocrit 26.9 % (37.0-53.0); Hemoglobin 8.4 g/dL (13.5-17.5); IMMATURE GRAN ABSOLUTE AUTO 0.09 K/mm3 (0.00-0.10); IMMATURE GRAN PERCENT AUTO 1 % (0-1); LYMPHOCYTES PERCENT AUTO 8 % (21-46); MONOCYTES ABSOLUTE AUTO 0.94 K/mm3 (0.16-1.47); MONOCYTES PERCENT AUTO 9 % (4-13); Mean Corpuscular HGB 25.8 pg (26.0-34.0); Mean Corpuscular HGB Conc 31.2 g/dL (31.5-36.5); Mean Corpuscular Volume 83 fL (80-100); Mean Platelet Volume 8.7 fL (9.1-12.4); NEUTROPHILS ABSOLUTE AUTO 8.43 K/mm3 (1.96-9.15); NEUTROPHILS PERCENT AUTO 80 % (41-73); Platelet Count 567 K/mm3 (150-400); RDW Coefficient Variation 20.2 % (11.7-14.2); RDW Standard Deviation 61.4 fL (35.1-46.3); Red Blood Cell Count 3.25 M/mm3 (4.30-5.90); White Blood Cell Count 10.54 K/mm3 (4.00-11.30)
[2024-06-24 05:46] LABS: Anion Gap 11 mmol/L (3-11); Blood Urea Nitrogen 22 mg/dL (8-24); Bun/Creatinine Ratio 18.2 (12.0-20.0); CO2, Blood 23 mmol/L (21-32); Calcium, Blood 8.2 mg/dL (8.5-10.1); Chloride, Blood 114 mmol/L (98-108); Creatinine, Blood 1.21 mg/dL (0.60-1.20); Glomerular Filtration Rate 65 (60-); Glucose, Blood 101 mg/dL (70-99); Magnesium, Blood 2.2 mg/dL (1.6-2.4); Potassium, Blood 3.9 mmol/L (3.5-5.5); Sodium, Blood 144 mmol/L (136-145)
[2024-06-24] MEDS ORDERED: Pantoprazole Sodium 40 MG Tab PO SCH (06:00)
--- NOTE | 2024-06-24 06:31 | NUR ---
PT ARRIVED ON FLOOR PAINFUL - PRN MEDS ADMINISTERED, PT STATED HE FELT SOME RELIEF. GI PANEL PENDING STOOL SAMPLE. URINE SAMPLE COLLECTED. ADMISSION ASSESSMENTS COMPLETED.
[2024-06-24 08:21] VITALS: BP 156/87
[2024-06-24] MEDS ORDERED: Tamsulosin HCl 0.4 MG Cap PO SCH (09:00)
[2024-06-24] MEDS ORDERED: Aspirin 81 MG Chew PO SCH ×2 (09:00)
[2024-06-24] MEDS ORDERED: Atorvastatin 40 MG Tab PO SCH (09:00)
[2024-06-24] MEDS ORDERED: Heparin Sodium,Porcine 5,000 UNIT/0.5 ML SDV SC SCH (09:00)
--- NOTE | 2024-06-24 16:07 | NUR ---
POULTRY SERVICE TECHNICIAN CALLED AT 1524 REPORTING THAT PATIENT HAD A ACCELERATED IDIOVENTRICULAR RHYTHM OF 7 BEATS AND 1 PVC. PATIENT ASLEEP DURING THIS AND WOKEN UP AND REPORTED NO SYMPTOMS OF CHEST PAIN OR SHORTNESS OF BREATH OR APPEARED TO BE IN DISTRESS. AN EKG WAS OBTAINED WITH NO SIGNIFICANT FINDINGS. THIS WAS REPORTED TO DR. ABRAJAS. NO NEW ORDERS.
[2024-06-24] MEDS ORDERED: Propranolol HCL 20 MG TAB PO PRN (16:20)
--- NOTE | 2024-06-24 16:36 | NUR ---
SHIFT SUMMARY: PT IS A&OX4-1 PERSON STAND PIVOT TRANSFER WHO IS HERE FOR R SIDED WEAKNESS, NUMBNESS AND PAIN SINCE 06/18/24. PATIENT HAS A HISTORY OF SPINAL SURGERY WITH COMPLICATIONS OF DEVELOPMENT OF MRSA. PER PATIENT HE IS CURRENTLY BEING TREATED WITH IV ANTIBIOTICS FOR MRSA AND HAS BEEN GOING TO [facility] FOR HIS DAILY INFUSIONS, BUT WAS UNABLE TO MAKE IT RECENTLY DUE TO INCREASED LACK OF MOBILITY AND PAIN. PATIENT HAS A OUTPATIENT PLACED PICC LINE IN HIS L UPPER ARM. PATIENT MAKES HIS NEEDS KNOWN, CONTINENT, AND EATING/DRINKING. HE IS GETTING PAIN MEDICATION NEEDED AND SEEMS TO BE EFFECTIVE. PATIENT IS RESTING AT THIS TIME, RESP EVEN AND UNLABORED, ON CONTINOUS BI OX 96% O2, AND ON TELE, CALL LIGHT WITHIN REACH, NO SIGNS OR SYMPTOMS OF DISTRESS, PLAN OF CARE ONGOING. PATIENT WOULD LIKE TO GO TO A REHAB FACILITY.
[2024-06-24 16:37] LABS: Adenovirus F 40/41 Not Detected (NOT DETECT); Astrovirus Not Detected (NOT DETECT); Campylobacter Sp Not Detected (NOT DETECT); Cryptosporidium Not Detected (NOT DETECT); Cyclospora Cayetanensis Not Detected (NOT DETECT); E. Coli O157 Not Detected (NOT DETECT); Entamoeba Histolytica Not Detected (NOT DETECT); Enteroaggregative E. coli-EAEC Not Detected (NOT DETECT); Enteropathogenic E. coli-EPEC Not Detected (NOT DETECT); Enterotoxigenic E. coli-ETEC Not Detected (NOT DETECT); Giardia Lamblia Not Detected (NOT DETECT); Norovirus GI/GII Not Detected (NOT DETECT); Plesiomonas Shigelloides Not Detected (NOT DETECT); Rotavirus A Not Detected (NOT DETECT); Salmonella Sp Not Detected (NOT DETECT); Sapovirus Not Detected (NOT DETECT); Shiga Toxin-prod E. coli-STEC Not Detected (NOT DETECT); Shigella/Enteroin E. coli-EIEC Not Detected (NOT DETECT); Vibrio Cholerae Not Detected (NOT DETECT); Vibrio Sp Not Detected (NOT DETECT); Yersinia Enterocolitica Not Detected (NOT DETECT)
[2024-06-24 16:53] VITALS: BP 157/98
[2024-06-24 18:27] LABS: Vancomycin, Random 17.4 ug/mL
[2024-06-24 19:11] VITALS: BP 181/113
--- NOTE | 2024-06-24 19:23 | NUR ---
Patient requested sandwich from pantry after okaying that it would be cut up into bite sized executive recruiter per speech evaluation hanging in room from today. Pt. smacked sandwich that I brought him because he assumed it would be warm and it wasn't, and because he didn't like that it was cut into bize-sized pieces. I reminded him again that the speech therapist wanted him eating bite sized things, hence his prior meals being cut up and soft. Patient shouted "I don't care about some bitch's opinion." I told the patient that I understand that he is frustrated, but that saying things like that is unaccepatable. Pt. apologized, cried, and requested new (heated) sandwich and more coffee. I got it for him.
[2024-06-24] MEDS ORDERED: Vancomycin HCL 750 MG in NS 250 ML IV ONE (20:00)
[2024-06-24] MEDS ORDERED: Famotidine 20 MG Tab PO SCH (21:00)
[2024-06-24] MEDS ORDERED: Gabapentin 300 MG Cap PO SCH (21:00)
[2024-06-24] MEDS ORDERED: Losartan Potassium 50 MG Tab PO SCH (21:00)
[2024-06-25 03:55] VITALS: BP 162/97
--- NOTE | 2024-06-25 05:10 | NUR ---
SHIFT SUMMARY PATIENT HAD VISITOR THIS EVENING. REQUESTED PAIN MEDICATION OXYCODONE AT 194 HIS BLOOD PRESSURE WAS 181/113AND PULSE 88. ADMINISTERED PRN HYDRALAZINE PER ORDER. AT 2234, PATIENT REQUESTED PAIN MEDICATION. ADVISED HE WAS TOO EARLY FOR HIS OXY CODONE BUT WAS ABLE TO GIVE TYLENOL FOR NOW AND COULD REASSESS PAIN, AND GO FROM THERE. AT ABOUT 0400 WAS NOTIFIED BY TELE THAT PATIENT WAS OFF TELE.PATIENT FOUND IN BATHROOM TAKING A SHOWER WITH CLOTHES ON. PATIENT WAS EXTREMELY DISORIENTATED BUT VERY HAPPY BECAUSE HE COULD NOW USE HIS ARM THAT HE WAS NOT ABLE TO BEFORE. PATIENT PUT IN DRY CLOTHES, CHANGED BED, AND RECONNECTED TO TELE.PATIENT WAS ABLE TO MAKE NEEDS KNOWN AND WAS RECEPTIVE TO CARE. BED IN LOW POSITION, BED RAILS TIMES 2, CALL LIGHT WITHIN REACH.
[2024-06-25 07:45] VITALS: BP 167/109
[2024-06-25 07:46] LABS: BASOPHILS ABSOLUTE AUTO 0.04 K/mm3 (0.00-0.23); BASOPHILS PERCENT AUTO 0 % (0-2); EOSINOPHILS ABSOLUTE AUTO 0.13 K/mm3 (0.00-0.68); EOSINOPHILS PERCENT AUTO 1 % (0-6); Hematocrit 27.2 % (37.0-53.0); Hemoglobin 8.7 g/dL (13.5-17.5); IMMATURE GRAN ABSOLUTE AUTO 0.07 K/mm3 (0.00-0.10); IMMATURE GRAN PERCENT AUTO 1 % (0-1); LYMPHOCYTES ABSOLUTE AUTO 0.93 K/mm3 (0.84-5.20); LYMPHOCYTES PERCENT AUTO 9 % (21-46); MONOCYTES ABSOLUTE AUTO 0.96 K/mm3 (0.16-1.47); MONOCYTES PERCENT AUTO 9 % (4-13); Mean Corpuscular Volume 81 fL (80-100); Mean Platelet Volume 8.1 fL (9.1-12.4); NEUTROPHILS ABSOLUTE AUTO 8.65 K/mm3 (1.96-9.15); NEUTROPHILS PERCENT AUTO 80 % (41-73); Platelet Count 517 K/mm3 (150-400); RDW Coefficient Variation 20.2 % (11.7-14.2); RDW Standard Deviation 60.3 fL (35.1-46.3); Red Blood Cell Count 3.35 M/mm3 (4.30-5.90); White Blood Cell Count 10.78 K/mm3 (4.00-11.30)
[2024-06-25] MEDS ORDERED: Sertraline HCl 100 MG Tab PO SCH (09:00)
[2024-06-25 09:04] LABS: Bun/Creatinine Ratio 15.4 (12.0-20.0); C-REACTIVE PROTEIN, EXT RANGE 2.38 mg/dL (0.000-0.300); Calcium, Blood 8.8 mg/dL (8.5-10.1); Creatinine, Blood 0.97 mg/dL (0.60-1.20); Percent Saturation 8.6 % (20.0-50.0); Potassium, Blood 3.9 mmol/L (3.5-5.5)
[2024-06-25] MEDS ORDERED: Loperamide HCl 2 MG Cap PO PRN (12:15)
[2024-06-25] MEDS ORDERED: Carvedilol 6.25 MG Tab PO SCH (13:00)
[2024-06-25 14:58] VITALS: BP 141/88
[2024-06-25] MEDS ORDERED: Sod Ferric Gluc Complx/Sucrose 125 MG in NS 100 ML IV SCH (17:15)
[2024-06-25] MEDS ORDERED: Folic Acid 1 MG TAB PO SCH (18:00)
--- NOTE | 2024-06-25 18:17 | NUR ---
SHIFT SUMMARY: PATIENT IS A&OX4/1 PERSON ASSIST. HE MAKES HIS NEEDS KNOWN. HE WILL ALSO OVERESTIMATE HIS ABILITIES AND DO TASK ON HIS OWN WITHOUT CALLNG; THEREFORE IMPORTANT THAT HIS BED ALARM IS ON. PATIENT DID GET UP INDEPENDENTLY TODAY TO THE RESTROOM AFTER IMAGING BROUGHT HIM BACK FROM HIS MRI AND HE WAS IN THE SHOWER. ADVISED PATIENT THAT HE NEEDS TO CALL FOR ASSIST PRIOR TO GETTING UP AND ESPECIALLY BEFORE GETTING INTO THE SHOWER BECAUSE HE HAS A CENTRAL LINE THAT NEEDS TO BE COVERED. PATIENT VOICES UNDERSTAND; PICC LINE DRESSING INTACT. DUE TO BE CHANGED ON 06/27/24. BED ALARM SET. HE CONTINUES TO C/O PAIN, BUT SEEMS TO BE DOING BETTER TODAY. HE CONTINUES TO HAVE FEELING AND MOBILITY AND DECREASED PAIN IN HIS R ARM. HE CONTINUES TO C/O PAIN IN HIS BACK AND NECK. GIVING PAIN MEDICATION WHEN NEEDED. HE IS CURRENTLY IN BED, EATING DINNER, CALL LIGHT WITHIN REACH, NO SIGNS OR SYMPTOMS OF DISTRESS, NO EVENTS ON TELE TODAY, PLAN OF CARE ONGOING.
[2024-06-25 18:40] LABS: Vancomycin, Random 15.8 ug/mL
[2024-06-25 20:49] VITALS: BP 133/90
[2024-06-25] MEDS ORDERED: NS IV SCH (21:00)
[2024-06-25] MEDS ORDERED: RIFAMPIN 300 MG PO SCH (21:00)
[2024-06-25] MEDS ORDERED: VANCOMYCIN HCL IV SCH (21:00)
[2024-06-26 03:58] VITALS: BP 148/100
--- NOTE | 2024-06-26 05:32 | NUR ---
SHIFT SUMMARY PATIENT APPEARED TO SLEEP ON AND OFF THROUGH NOC SHIFT.. REQUESTED PAIN MEDICATION OXYCODONE. HIS BLOOD PRESSURE WAS 148/100, AND PULSE 96. AT 0044 , PATIENT REQUESTED PAIN MEDICATION. ADMINISTERED 5MG OXY PO. HE REQUESTED OXY AGAIN AT 0300. AT 0400 HE WAS OBSERVED EATING RITZ CRACKERS AND VARIOUS OTHER FOODS THAT HAD BEEN BROUGHT INTO HIM. HE WAS ADVISED THAT HIS DIET WAS SOFT AND BITE SIZE. PATIENT APPEARED TO GET IRRATATED WITH THIS NEWS AND STATED THAT HE WAS NEVER TOLD ANY OF THIS, AND CONTINUED TO EAT. PATIENT WAS ADVISED THAT THIS WAS NOT A HEALTHY CHOICE AND HE COULD END UP CHOKING OR ASPIRATING. PATIENT STILL CONTINUED TO EAT AND ASKED FOR PAIN MEDICATION. ADVISED PATIENT IT WAS TOO EARLY AT THIS TIME ADVISED CHARGE NURSE. ADVISED THAT IT WAS TOO EARLY. PATIENT WAS OK WITH TYLENOL . BED IN LOW POSITION, BED RAILS TIMES 2, CALL LIGHT WITHIN REACH.
[2024-06-26] MEDS ORDERED: NS 250 ML IV PRN (07:35)
[2024-06-26 07:41] VITALS: BP 157/98
[2024-06-26] MEDS ORDERED: AmLODIPine Besylate 5 MG Tab PO SCH (09:00)
[2024-06-26 11:19] LABS: Hemoglobin 8.4 g/dL (13.5-17.5); Mean Corpuscular HGB 25.5 pg (26.0-34.0); Mean Corpuscular HGB Conc 31.1 g/dL (31.5-36.5); Mean Corpuscular Volume 82 fL (80-100); Mean Platelet Volume 8.2 fL (9.1-12.4); Platelet Count 488 K/mm3 (150-400); RDW Coefficient Variation 19.8 % (11.7-14.2); RDW Standard Deviation 59.2 fL (35.1-46.3); Red Blood Cell Count 3.29 M/mm3 (4.30-5.90); White Blood Cell Count 8.84 K/mm3 (4.00-11.30)
[2024-06-26 11:40] LABS: Bun/Creatinine Ratio 15.5 (12.0-20.0); Calcium, Blood 8.6 mg/dL (8.5-10.1); Creatinine, Blood 0.9 mg/dL (0.60-1.20); Potassium, Blood 3.7 mmol/L (3.5-5.5)
[2024-06-26] MEDS ORDERED: FOLI1 PO ×2 (12:42)
[2024-06-26] MEDS ORDERED: CARV6.25 PO (12:42)
[2024-06-26] MEDS ORDERED: RIFA300 PO ×2 (12:43)
[2024-06-26] MEDS ORDERED: LOPE2C PO ×2 (12:43)
[2024-06-26] MEDS ORDERED: VITAMIN C125 MG PO ×2 (12:44)
[2024-06-26] MEDS ORDERED: VISBIOME 112.51 EACH PO ×2 (12:44)
[2024-06-26] MEDS ORDERED: FEROSUL325 M1 PO ×2 (12:45)
--- NOTE | 2024-06-26 13:59 | NUR ---
PATIENT DISCHARGE: PATIENT DISCHARGED TO HOME / XFR TO HOME HEALTH THIS SHIFT. MEDICATION RECONCILIATION COMPLETED; MED LIST FAXED TO [facility]. IV ACCESS LEFT IN PLACE R/T PATIENT'S IV ABX IN [facility] ([facility] DISCHARGE EDUCATION COMPLETED WITH PATIENT. PATIENT TRANSPORTED TO EXIT BY [facility] STAFF WITH WHEELCHAIR AT 1315. PATIENT DEPARTED [facility] VIA PRIVATE AUTO.
[2024-07-02] MEDS ORDERED: OXYC5 PO (11:10)
== END 2024-06-26 13:12 | disposition home health service (06) | DRG 948 ==
LOC: ER 12:14 → MEDS 19:08 → ENPENDDIS 06-26 11:03 → MEDS 06-26 13:12
PROVIDERS: Emergency Medicine; Internal Medicine; Nurse Practitioner Acute Care; ADMIT Family Medicine
DX: R53.1 Weakness (principal); T81.41XA Infection following a procedure, superficial incisional surgical site, initial encounter; L76.34 Postprocedural seroma of skin and subcutaneous tissue following other procedure; N17.9 Acute kidney failure, unspecified; K52.1 Toxic gastroenteritis and colitis; R78.81 Bacteremia; T81.42XA Infection following a procedure, deep incisional surgical site, initial encounter; B95.62 Methicillin resistant Staphylococcus aureus infection as the cause of diseases classified elsewhere; Y83.8 Other surgical procedures as the cause of abnormal reaction of the patient, or of later complication, without mention of misadventure at the time of the procedure; I48.0 Paroxysmal atrial fibrillation; J44.9 Chronic obstructive pulmonary disease, unspecified; F41.9 Anxiety disorder, unspecified; F32.A Depression, unspecified; G62.9 Polyneuropathy, unspecified; N40.0 Benign prostatic hyperplasia without lower urinary tract symptoms; I10 Essential (primary) hypertension; K21.9 Gastro-esophageal reflux disease without esophagitis; D50.9 Iron deficiency anemia, unspecified; E53.8 Deficiency of other specified B group vitamins; T36.95XA Adverse effect of unspecified systemic antibiotic, initial encounter; F19.90 Other psychoactive substance use, unspecified, uncomplicated; F17.210 Nicotine dependence, cigarettes, uncomplicated; L08.9 Local infection of the skin and subcutaneous tissue, unspecified; R20.0 Anesthesia of skin; R22.43 Localized swelling, mass and lump, lower limb, bilateral; E86.0 Dehydration; M79.601 Pain in right arm; M79.604 Pain in right leg; Z85.828 Personal history of other malignant neoplasm of skin; Z79.899 Other long term (current) drug therapy; Z88.8 Allergy status to other drugs, medicaments and biological substances
CPT/HCPCS: 36415; 70450; 70551; 72146; 72156; 76770; 80048; 80053; 80202; 82607; 82728; 82746; 83540; 83550; 83735; 83880; 85025; 85027; 85651; 86140; 87040; 87507; 92526; 92610; 93005; 93010; 93306; 93880; 94640; 94664; 94760; 94762; 96365; 96374; 97112; 97162; 97530; 99285-25; A9270; A9579; J0360; J1644; J2270; J2405; J2916; J3010; J3370; J7050

== ENCOUNTER 2024-06-27 09:50 | Day surgery (SDC) | payer MEDICARE, OTHER ==
[~2024-06-27 09:50] MED LIST changes: +FAMO20 PO; +FEROSUL325 M1 PO; +FOLI1 PO; +LOPE2C PO; +NAPR550 PO; +RIFA300 PO; +VISBIOME 112.51 EACH PO; +VITAMIN C125 MG PO
[2024-06-27 14:30] VITALS: BP 148/108
[2024-06-27 15:06] LABS: Vancomycin, Trough 15.8 ug/mL (5.0-10.0)
[2024-06-27] MEDS ORDERED: Vancomycin HCL 1,000 MG in NS 250 ML IV SCH (15:30)
[2024-07-02] MEDS ORDERED: OXYC5 PO (11:10)
== END 2024-06-27 16:45 | disposition home or self-care (01) ==
LOC: ATC 09:50
PROVIDERS: Specialist
DX: T81.42XA Infection following a procedure, deep incisional surgical site, initial encounter (principal); M43.22 Fusion of spine, cervical region; B95.62 Methicillin resistant Staphylococcus aureus infection as the cause of diseases classified elsewhere; R78.81 Bacteremia; Z88.8 Allergy status to other drugs, medicaments and biological substances
CPT/HCPCS: 80202; 96365; J3370; J7050

== ENCOUNTER 2024-06-28 02:12 | Day surgery (SDC) | payer MEDICARE, OTHER ==
[2024-06-28] MEDS ORDERED: Vancomycin HCL 1,000 MG in NS 250 ML IV SCH (15:00)
[2024-06-28 15:13] VITALS: BP 157/99
== END 2024-06-28 16:25 | disposition home or self-care (01) ==
LOC: ATC 02:12
DX: T81.42XA Infection following a procedure, deep incisional surgical site, initial encounter (principal); M43.22 Fusion of spine, cervical region; B95.62 Methicillin resistant Staphylococcus aureus infection as the cause of diseases classified elsewhere; R78.81 Bacteremia; Z88.8 Allergy status to other drugs, medicaments and biological substances
CPT/HCPCS: 96365; J3370; J7050

== ENCOUNTER 2024-06-29 00:38 | Day surgery (SDC) | payer MEDICARE, OTHER ==
[2024-06-29 14:37] VITALS: BP 141/95
[2024-06-29 15:11] LABS: Creatinine, Blood 1.62 mg/dL (0.60-1.20); Vancomycin, Trough 24.8 ug/mL (5.0-10.0)
--- NOTE | 2024-06-29 15:40 | NUR ---
Received a call from the pharmacist. Hold vanco dose today. Will plan to have pt redrawn for vanco level and creatine tomorrow.
[2024-07-08] MEDS ORDERED: Calcium Carbon500 MG PO (12:01)
[2024-07-08] MEDS ORDERED: BISA10S PR (12:02)
[2024-07-08] MEDS ORDERED: OMEP20ER PO (12:04)
== END 2024-06-29 15:40 | disposition home or self-care (01) ==
LOC: ATC 00:38
PROVIDERS: Internal Medicine
DX: T81.42XA Infection following a procedure, deep incisional surgical site, initial encounter (principal); M43.22 Fusion of spine, cervical region; B95.62 Methicillin resistant Staphylococcus aureus infection as the cause of diseases classified elsewhere; R78.81 Bacteremia; Z88.8 Allergy status to other drugs, medicaments and biological substances
CPT/HCPCS: 36592; 80202; 82565

== ENCOUNTER 2024-06-30 02:40 | Day surgery (SDC) | payer MEDICARE, OTHER ==
[2024-06-30 14:45] VITALS: BP 182/117
[2024-06-30 15:14] LABS: Creatinine, Blood 1.37 mg/dL (0.60-1.20); Vancomycin, Random 18.1 ug/mL
[2024-06-30] MEDS ORDERED: Vancomycin HCL 750 MG in NS 250 ML IV SCH (15:40)
[2024-06-30 15:50] VITALS: BP 182/123
--- NOTE | 2024-06-30 16:09 | NUR ---
RN WENT IN TO GIVE VANCO MEDICATION AND TOOK PT BLOOD PRESSURE. IT WAS 182/123. PREVIOUS RN THAT BROUGHT PT BACK TO ROOM GOT 181/110 BUT THOUHGT IT WAS DUE TO WALKING IN AND ANXIETY AND WAS GOING TO RETAKE IT WHEN MEDICATION WAS UP FROM PHARMACY. SECOND RN THAT GOT THE SECOND BP CALLED NITESH THEODORE MD @ [phone], RN ARTICULATED PT BP'S AND CONCERNS. ORDERS TO GIVE PT LOSARTIN 50MG NOW ONE TIME DOES AND INSTRUCT PT THAT HE SHOULD BE TAKING THIS MEDICATION TWICE DAILY INSTEAD OF ONCE DAILY. RN WILL CARRY OUT ORDERS
[2024-06-30] MEDS ORDERED: Losartan Potassium 50 MG Tab PO ONE (16:10)
[2024-06-30 16:18] VITALS: BP 188/117
[2024-06-30 16:46] VITALS: BP 178/113
--- NOTE | 2024-06-30 16:59 | NUR ---
rn helped pt contact hilda to refil his losartin mediction so that he can follow the providers orders and take another does before bedtime. rn also showed pt where it said "advance to twice daily if blood pressure isnt controlled within two weeks" on his perscription instructions. pt verbally verified that he will now start taking his perscrition twice daily as the provider wants. provider okay with discharging bp.
[2024-07-02] MEDS ORDERED: OXYC5 PO (11:10)
== END 2024-06-30 16:57 | disposition home or self-care (01) ==
LOC: ATC 02:40
PROVIDERS: Internal Medicine
DX: T81.42XA Infection following a procedure, deep incisional surgical site, initial encounter (principal); M43.22 Fusion of spine, cervical region; B95.62 Methicillin resistant Staphylococcus aureus infection as the cause of diseases classified elsewhere; R78.81 Bacteremia; I48.91 Unspecified atrial fibrillation; J44.9 Chronic obstructive pulmonary disease, unspecified; K21.9 Gastro-esophageal reflux disease without esophagitis; I10 Essential (primary) hypertension; Z98.1 Arthrodesis status; Z88.8 Allergy status to other drugs, medicaments and biological substances; Z79.899 Other long term (current) drug therapy
CPT/HCPCS: 80202; 82565; 96365; 99211; A9270; J3370; J7050

== ENCOUNTER 2024-07-01 01:07 | Day surgery (SDC) | payer MEDICARE, OTHER ==
[2024-07-01 14:18] VITALS: BP 114/78
[2024-07-01 14:54] LABS: Creatinine, Blood 1.37 mg/dL (0.60-1.20); Vancomycin, Random 19.6 ug/mL
[2024-07-01] MEDS ORDERED: Vancomycin HCL 500 MG in NS 250 ML IV ONE (16:00)
[2024-07-02] MEDS ORDERED: GABA300 PO (11:09)
[2024-07-02] MEDS ORDERED: OXYCONTIN10 MG PO (11:10)
[2024-07-08] MEDS ORDERED: Calcium Carbon500 MG PO (12:01)
[2024-07-08] MEDS ORDERED: BISA10S PR (12:02)
[2024-07-08] MEDS ORDERED: OMEP20ER PO (12:04)
== END 2024-07-01 16:13 | disposition home or self-care (01) ==
LOC: ATC 01:07
PROVIDERS: Internal Medicine
DX: T81.42XA Infection following a procedure, deep incisional surgical site, initial encounter (principal); M43.22 Fusion of spine, cervical region; B95.62 Methicillin resistant Staphylococcus aureus infection as the cause of diseases classified elsewhere; R78.81 Bacteremia; Z88.8 Allergy status to other drugs, medicaments and biological substances; Z53.21 Procedure and treatment not carried out due to patient leaving prior to being seen by health care provider
CPT/HCPCS: 70450; 72125; 80202; 82565; 96365; J3370; J7050

== ENCOUNTER 2024-07-01 20:28 | Emergency (ER) | payer MEDICARE, OTHER ==
[~2024-07-01] VITALS: Ht 182.9 cm; Wt 59.0 kg
[2024-07-01 20:39] VITALS: BP 121/93
[2024-07-02] MEDS ORDERED: GABA300 PO (11:09)
[2024-07-02] MEDS ORDERED: OXYC5 PO (11:10)
== END 2024-07-01 23:21 | disposition left against medical advice (07) ==
LOC: ER 20:28
DX: Z53.21 Procedure and treatment not carried out due to patient leaving prior to being seen by health care provider (principal)
CPT/HCPCS: 70450; 72125

== ENCOUNTER 2024-07-02 00:54 | Inpatient (IN) | payer MEDICARE, OTHER ==
[~2024-07-02] VITALS: Ht 182.9 cm; Wt 52.8 kg
[2024-07-02] VITALS (9 sets, daily range): BP systolic 118–185; BP diastolic 78–104
[2024-07-02] MEDS ORDERED: Ketorolac Tromethamine 30mg Vial IV ONE (02:00)
[2024-07-02 02:46] LABS: BASOPHILS ABSOLUTE AUTO 0.05 K/mm3 (0.00-0.23); BASOPHILS PERCENT AUTO 1 % (0-2); EOSINOPHILS ABSOLUTE AUTO 0.11 K/mm3 (0.00-0.68); EOSINOPHILS PERCENT AUTO 1 % (0-6); Hematocrit 28.6 % (37.0-53.0); Hemoglobin 8.7 g/dL (13.5-17.5); IMMATURE GRAN ABSOLUTE AUTO 0.05 K/mm3 (0.00-0.10); IMMATURE GRAN PERCENT AUTO 1 % (0-1); LYMPHOCYTES ABSOLUTE AUTO 0.83 K/mm3 (0.84-5.20); LYMPHOCYTES PERCENT AUTO 8 % (21-46); MONOCYTES ABSOLUTE AUTO 0.94 K/mm3 (0.16-1.47); MONOCYTES PERCENT AUTO 9 % (4-13); Mean Corpuscular HGB 25.9 pg (26.0-34.0); Mean Corpuscular HGB Conc 30.4 g/dL (31.5-36.5); Mean Corpuscular Volume 85 fL (80-100); Mean Platelet Volume 8.5 fL (9.1-12.4); NEUTROPHILS ABSOLUTE AUTO 8.59 K/mm3 (1.96-9.15); NEUTROPHILS PERCENT AUTO 81 % (41-73); Platelet Count 408 K/mm3 (150-400); RDW Coefficient Variation 21.9 % (11.7-14.2); RDW Standard Deviation 67.4 fL (35.1-46.3); Red Blood Cell Count 3.36 M/mm3 (4.30-5.90); White Blood Cell Count 10.57 K/mm3 (4.00-11.30)
[2024-07-02 03:10] LABS: Albumin, Blood 2.3 g/dL (3.4-5.0); Albumin/Globulin Ratio 0.5 (0.8-1.8); Bilirubin, Total 0.9 mg/dL (0.1-1.0); Bun/Creatinine Ratio 24.8 (12.0-20.0); Creatinine, Blood 1.37 mg/dL (0.60-1.20); Globulin, Blood 4.5 g/dL (2.2-4.0); Potassium, Blood 4.3 mmol/L (3.5-5.5); Total Protein, Blood 6.8 g/dL (6.4-8.2)
[2024-07-02] MEDS ORDERED: NS 1,000 ML IV SCH (04:30)
[2024-07-02] MEDS ORDERED: Acetaminophen 325 MG TABLET PO PRN (04:35)
[2024-07-02] MEDS ORDERED: NS 1,000 ML IV ONE (04:41)
[2024-07-02] MEDS ORDERED: HydrALAZINE HCl 20 MG / ML 1ML Vial IV PRN (05:40)
--- NOTE | 2024-07-02 05:42 | NUR ---
0535 - RECEIVED REPORT FROM FREDDY BARTH, ER.
--- NOTE | 2024-07-02 06:54 | NUR ---
PT HERE [facility]IA [facility] AT 0555. PT TRANSFERRED FROM ER [facility] TO MEDICAL FLOOR BED. PT HAD AN ATTENDS ON AND WAS COVERED IN FECES AND URINE. PT'S PANTS WERE FULL OF LIQUID FECES. PT WAS ABLE TO ROLL HIMSELF - PT CLEANED UP AND LINENS WERE CHANGED ON THE MEDICAL FLOOR BED DUE TO THE ABOVE. THE REPORT I RECEIVED FROM ER - DID NOT REPORT RECENT CERVICAL SPINE SURGERY - PT HAS ZOEY TO HIS CERVICAL AREA DOWN TO UPPER MID BACK. PT VERY THIN AND FRAGILE IN HIS APPEARANCE - AND PT YELLS AT STAFF WHEN WE ATTEMPTED TO LIFT HIS ARMS UP TO REMOVE HIS SHIRT - "JUST CUT IT OFF" - WHICH WE DID. PT YELLS AT STAFF WHEN ATTEMPTING TO TAKE HIS PANTS OFF, HOWEVER INSTRUCTED US ON EXACTLY HOW TO REMOVED HIS JEANS FOR HIS COMFORT LEVEL. CALL LIGHT PLACED NEXT TO PT PRIOR TO LEAVING TO GIVE CN REPORT AT 0615. REPORT GIVEN TO FREDDY PEDRO.
[2024-07-02] MEDS ORDERED: Ferrous Sulfate 325 MG Tab PO SCH (09:00)
[2024-07-02] MEDS ORDERED: OxyCODONE HCL 5 MG TAB PO PRN (10:15)
[2024-07-02] MEDS ORDERED: Ondansetron HCl 2 MG / ML 2ML Vial IV PRN (10:15)
[2024-07-02] MEDS ORDERED: GABA300 PO (11:09)
[2024-07-02] MEDS ORDERED: OXYCONTIN10 MG PO (11:10)
[2024-07-02] MEDS ORDERED: Gabapentin 300 MG Cap PO SCH ×2 (14:00→15:04)
[2024-07-02] MEDS ORDERED: Calcium Carbonate 500 MG Tab Chew PO PRN (14:55)
[2024-07-02] MEDS ORDERED: Simethicone 80 MG Chew PO PRN (14:55)
[2024-07-02] MEDS ORDERED: Polyethylene Glycol 3350 17 gm PO PRN (14:55)
[2024-07-02 15:26] LABS: BASOPHILS ABSOLUTE AUTO 0.05 K/mm3 (0.00-0.23); BASOPHILS PERCENT AUTO 0 % (0-2); EOSINOPHILS ABSOLUTE AUTO 0.13 K/mm3 (0.00-0.68); EOSINOPHILS PERCENT AUTO 1 % (0-6); Hematocrit 27.3 % (37.0-53.0); Hemoglobin 8.5 g/dL (13.5-17.5); IMMATURE GRAN PERCENT AUTO 1 % (0-1); LYMPHOCYTES ABSOLUTE AUTO 0.68 K/mm3 (0.84-5.20); LYMPHOCYTES PERCENT AUTO 6 % (21-46); MONOCYTES ABSOLUTE AUTO 1.07 K/mm3 (0.16-1.47); MONOCYTES PERCENT AUTO 9 % (4-13); Mean Corpuscular HGB Conc 31.1 g/dL (31.5-36.5); Mean Corpuscular Volume 84 fL (80-100); Mean Platelet Volume 8.6 fL (9.1-12.4); NEUTROPHILS ABSOLUTE AUTO 10.03 K/mm3 (1.96-9.15); NEUTROPHILS PERCENT AUTO 83 % (41-73); Platelet Count 451 K/mm3 (150-400); RDW Coefficient Variation 22.1 % (11.7-14.2); RDW Standard Deviation 67.5 fL (35.1-46.3); Red Blood Cell Count 3.27 M/mm3 (4.30-5.90); White Blood Cell Count 12.06 K/mm3 (4.00-11.30)
[2024-07-02 15:38] LABS: Bun/Creatinine Ratio 22.9 (12.0-20.0); Calcium, Blood 8.8 mg/dL (8.5-10.1); Creatinine, Blood 1.09 mg/dL (0.60-1.20); Potassium, Blood 3.8 mmol/L (3.5-5.5); Vancomycin, Random 13.7 ug/mL
[2024-07-02] MEDS ORDERED: Vancomycin HCL 750 MG in NS 250 ML IV SCH (16:00)
[2024-07-02] MEDS ORDERED: Carvedilol 6.25 MG Tab PO SCH (17:00)
[2024-07-02] MEDS ORDERED: Losartan Potassium 50 MG Tab PO SCH ×2 (17:25→21:00)
[2024-07-02] MEDS ORDERED: Tamsulosin HCl 0.4 MG Cap PO SCH (21:00)
[2024-07-02] MEDS ORDERED: Docusate Sodium/Senna 1 Tab PO SCH (21:00)
[2024-07-02] MEDS ORDERED: RIFAMPIN 300 MG PO SCH (21:00)
[2024-07-02] MEDS ORDERED: Famotidine 20 MG Tab PO SCH (21:00)
[2024-07-03 02:44] VITALS: BP 131/100
--- NOTE | 2024-07-03 02:47 | NUR ---
SHIFT SUMMARY PT IS A&O X4, TRIBE W/O HEARING AIDES (BATTERIES ,) AND IMPULSIVE, YELLING AT TIMES TOWARDS STAFF/ANGRY DURING THIS SHIFT. PT SITTING UPRIGHT IN BED, NECK LEANING TOWARDS LEFT SIDE. PT DENIES PAIN. OFFERED AND PT EDUCATED R/T PAIN MANAGMENT AND AVAILABLE PRN'S, PT DENIED THE NEED OF. PT SLEEPY DURING HS MED PASS- HELD ALL SCHEDULED 2100 MEDS D/T ASPIRATION RISK. MULTIPLE ATTEMPTS TO ADMINISTER MEDICATIONS- PT SNORING IN BED. NO ACUTE EVENTS DURING THIS SHIFT. BED AT THE LOWEST POSITION, CALL LIGHT WITHIN REACH. PT IS ABLE TO MAKE HIS NEEDS KNOWN. BED ALARM FOR SAFETY. PT IS HIGH FALL RISK AND HAS AN EXTENSIVE HX OF FALLS.
[2024-07-03 07:49] VITALS: BP 142/103
[2024-07-03] MEDS ORDERED: NAPR500ERA PO (08:53)
[2024-07-03] MEDS ORDERED: Sertraline HCl 100 MG Tab PO SCH (09:00)
[2024-07-03] MEDS ORDERED: OxyCODONE HCL 5 MG TAB PO PRN ×2 (15:05→17:45)
--- NOTE | 2024-07-03 15:43 | NUR ---
PATIENT C/O "OVER THE TOP PAIN ALL OVER" 08/11. OXY 5MG AVAILABLE Q6H PRN. SEEMS TO BE AT 5 HOURS WHEN PAIN BECOMES INTOLERABLE. DISCUSSION WITH DR BARAJAS WHO CHANGED ORDER TO Q4h PRN.
--- NOTE | 2024-07-03 15:59 | NUR ---
END OF SHIFT SUMMARY: A&Ox4. PLEASANT AND COOPERATIVE WITH CARE. CALLS APPROPRIATELY AND IS ABLE TO ADVOCATE NEEDS EFFECTIVELY. BEDREST. INCONTINENT BOTH BOWEL AND BLADDER. LBM TODAY. MEDS WHOLE WITH FLUIDS. PAIN SIGNIFICANT TODAY, C / O [id number] PAIN ALL OVER . ORDERS TO CHANGE OXYCODONE 5MG Q6H PRN TO Q4H PRN. INDEPENDENT WITH MEALS. LIKES HOT, HOT COFFEE. EDUCATION PROVIDED ON BURN RISK WITH HOT COFFEE. BED IN LOWEST POSITION. CALL LIGHT WITHIN REACH. ALL NEEDS MET. REPORT FREDDY MORALES, WHO WILL BE TAKING OVER PATIENT CARE.
[2024-07-03 17:09] VITALS: BP 162/112
[2024-07-03] MEDS ORDERED: FentaNYL Citrate 50 MCG/ML 2 ML Injection IV ONE (17:25)
[2024-07-03] MEDS ORDERED: FentaNYL Citrate 50 MCG/ML 2 ML Injection IV PRN (17:45)
--- NOTE | 2024-07-03 18:13 | NUR ---
PT CRYING AND CALLING OUT STATING HE WANTS TO GO HOME AND DYE. PT TRIED TO GET OUT OF BED AND HAD TO BE CONSOLED. PT HAS HAD THIS FUR MACHINE OPERATOR IN ROOM FOR 45 MIN TRYING TO CALM HIM DOWN. DR BARAJAS WAS NOTIFIED AND SHE CAME TO BEDSIDE ORDERED IV PAIN MED PER EMAR. THIS WAS EFFECTIVE FOR A TIME, THEN PT STATED HE JUST CAN'T CALM HIS BRAIN DOWN AND IS VERY ANXIOUS AND AFRAID. PT WAS REQUESTING SOMETHING FOR ANXIETY. DR BARAJAS WAS NOTIFIED AND SHE IS GOING TO LOOK OVER MEDS FIRST. PT IS STARTING TO CHANT HE WANT TO AND IT ROCKING IN BED. PT WAS ALSO TREATED FOR HIGH BP WILL CONITINUE TO MONITOR. BED ALARM IS IN PLACE WITH CALL LIGHT IN REACH.
--- NOTE | 2024-07-03 18:21 | NUR ---
THIS JR. JAVA DEVELOPER TOOK OVER CARE AT 1558.
[2024-07-03] MEDS ORDERED: ALPRAZolam 0.25 MG Tab PO PRN (19:00)
--- NOTE | 2024-07-03 19:53 | NUR ---
@1915 PT SITTING ON THE SIDE OF THE BED, BED ALARM ON. PT TRYING TO GET OUT OF THE BED, REPORTS FEELING SEVERE PAIN, HOPLESSNESS, NO FUTURE. PT DENIES SI/HI. PT STATES "MY MIND IS OUT OF IT, I CAN'T DEAL WITH THIS PAIN." PT EDUCATED ABOUT FALL RISK, PAIN MANAGMENT, AND THIS TRAFFIC WAREHOUSE SUPERVISOR USED ACTIVE LISTENING AND EMPATHY. PT WAS MEDICATED WITH XANAX 0.5PO PRN BID, AND OXYCODONE 5MG (5-10MG)PO PRN Q4HRS. CHARGE NURSE KARISSA NOTIFIED. BREAK NURSE MARI RN NOTIFIED. BREAK NURSE YASMIN RN NOTIFIED. @1999, PT SNORING IN BED, THIS TRAFFIC WAREHOUSE SUPERVISOR SITTING ON NSG STATION NEXT TO PT'S ROOM. NON LINEAR EDITOR OLESYA INFORMED THIS PT, THAT SHE RECEIVED A CALL FROM THE PT'S FRIEND JONI, WHO REPORTED THAT PT CALLING EVERYONE, ASKING THEM TO COME AND GET THE PT. JONI REPORTED THAT HE WANTS TO COME AND CONVINCE THE PT TO CONTINUE THE HOSPITALIZATION. FRIEND ON HIS WAY TO VISIT AND COMFORT THE PT, HE IS NOT PLANNING TO HELP THE PT TO LEAVE DURING THIS SHIFT D/T PT'S MEDICAL CONDITION. PT WAS NOTIFIED BY THIS TRAFFIC WAREHOUSE SUPERVISOR OF HIS RIGHTS A PT, INFO ALSO GIVEN ABOUT LEAVING AMA. WILL CONTINUE TO TX THE ANXIETY, AND PAIN WITH PRN MEDICATIONS ORDERED.
[2024-07-03] MEDS ORDERED: Lactobacil 2-S.Thermo-Bifido 1 1 Cap PO SCH (21:00)
[2024-07-03 21:47] VITALS: BP 149/101
[2024-07-03 22:59] VITALS: BP 142/95
--- NOTE | 2024-07-03 23:18 | NUR ---
@4782 THIS AGILE PROJECT MANAGER RECEIVED A PHONE CALL FROM PT'S NEXT DOOR NEIGHBOR/LONG TIME FRIEND FOR >20 YRS-JONI LEE. HE WOULD LIKE TO BE THE FIRST CONTACT, SINCE HE IS LOCAL IN THIS AREA. PT'S SON LIVES IN [place]. JONI REPORTED THAT HE STOPPED BY THIS EVENING @ THE PT'S BEDSIDE. PT RESTING/SNORING, DID NOT GET TO CHAT WITH THE PT. JONI TOLD THIS AGILE PROJECT MANAGER THAT PT WOULD JUST GO HOME TO , AND THAT IT IS DIFFICULT TO SAY NO TO HIS FRIEND, IF HE WANTS TO LEAVE AND GO HOME. HE WOULD JUST STAY AT HOME W/O ANY HELP. "I CAN'T GIVE THE 24HR CARE TO HIM," IN THAT CASE, WOULD "WHEEL HIM OUT OF THERE. JONI TOLD THIS AGILE PROJECT MANAGER, THAT "IF HE THROWS A FIT, CALL ME ANYTIME, AND I GUESS I'LL COME AND GET HIM. HE NEEDS 24HR CARE, HE HAS DIARRHEA AND OTHER ISSUES, AND HE WOULD TRY TO WALK AND FALL AGAIN AT HOME. THAT IS WHAT HAPPENED, HE IS STRONG MINDED AND THAT IS WHAT HAPPENED, HE WALKED AND FELL ON HIS DRIVEWAY." THIS AGILE PROJECT MANAGER DID NOT DISCLOSE ANY MEDICAL INFO ABOUT THE PT. ADDED HIS PHONE NUMBER ON WHITEBOARD AND NOTE IN PT'S CHART BY THE ROOM. WILL UPDATE THE CHARGE NURSE KARISSA, AND THE BREAKNURSE MARI.
[2024-07-04] MEDS ORDERED: Propranolol HCL 20 MG TAB PO PRN (08:20)
[2024-07-04 08:41] VITALS: BP 152/95
[2024-07-04 08:58] LABS: Hematocrit 29.6 % (37.0-53.0); Hemoglobin 9.4 g/dL (13.5-17.5); Mean Corpuscular HGB Conc 31.8 g/dL (31.5-36.5); Mean Corpuscular Volume 82 fL (80-100); Mean Platelet Volume 8.3 fL (9.1-12.4); Platelet Count 464 K/mm3 (150-400); RDW Coefficient Variation 21.2 % (11.7-14.2); RDW Standard Deviation 63.4 fL (35.1-46.3); Red Blood Cell Count 3.61 M/mm3 (4.30-5.90)
[2024-07-04] MEDS ORDERED: Enoxaparin 40 MG/0.4 ML SYR SC SCH (09:00)
[2024-07-04 09:23] LABS: Bun/Creatinine Ratio 19.7 (12.0-20.0); Calcium, Blood 9.4 mg/dL (8.5-10.1); Creatinine, Blood 0.71 mg/dL (0.60-1.20); Potassium, Blood 3.9 mmol/L (3.5-5.5)
[2024-07-04] MEDS ORDERED: FentaNYL Citrate 50 MCG/ML 2 ML Injection IV ONE (15:20)
[2024-07-04] MEDS ORDERED: FentaNYL Citrate 50 MCG/ML 2 ML Injection IV PRN (15:20)
[2024-07-04 15:27] VITALS: BP 144/88
[2024-07-04] MEDS ORDERED: Vancomycin HCL 1,000 MG in NS 250 ML IV SCH (16:00)
--- NOTE | 2024-07-04 16:13 | NUR ---
PT AOX3 AND HAS BEEN COOPERATIVE OF CARE. PT DOES SEEM TO BE DOING BETTER WITH AND INCREASE TO PAIN MANAGEMENT BY DR BARAJAS. HAS NOT BEEN IN THE DISTRESS HE HAS BEEN SHOWING OVER THE WEEKEND AND HAS BEEN ABLE TO SLEEP A BIT TODAY. PT WAS CURRENTLY AWAKE AND EATING SOME FOOD A FREIND BROUGHT HIM. CALL LIGHT IS IN REACH AND PT IS ABLE TO USE APPROPRIATELY. WILL CONTINUE TO MONITOR.
[2024-07-04] MEDS ORDERED: Ascorbic Acid 500 MG Tab PO SCH (17:00)
[2024-07-04] MEDS ORDERED: Carvedilol 6.25 MG Tab PO SCH (17:00)
[2024-07-04] MEDS ORDERED: OxyCODONE 5 mg/Acetamin 325 mg TABLET PO PRN (18:40)
[2024-07-04 19:33] VITALS: BP 112/77
[2024-07-04] MEDS ORDERED: OxyCODONE HCL 10 MG TABCR PO SCH (21:00)
[2024-07-04 21:28] VITALS: BP 119/88
[2024-07-05 04:25] VITALS: BP 130/96
--- NOTE | 2024-07-05 04:26 | NUR ---
NO ACUTE CHANGES OVERNIGHT. PT C/O PAIN TO UPPER NECK AND SPINE. TREATED PER EMAR, PAIN HAS NOT BEEN CONTROLLED. PT ABLE ASSIST WITH TURNING. INCONT. ALERT AND ORIENTED X4, ABLE TO MAKE NEEDS KNOWN, PT IS ANXIOUS AND CONCENED WITH CHANGE IN PAIN MEDICATION CHANGES.
[2024-07-05 08:06] VITALS: BP 144/89
[2024-07-05] MEDS ORDERED: Folic Acid 1 MG TAB PO SCH (09:00)
--- NOTE | 2024-07-05 10:01 | NUR ---
PATIENT WITH CONTINUED 9/10 PAIN. PRN IV FENTANYL ADMINISTERED. ASSISTED WITH ORDERING LUNCH TRAY.
[2024-07-05] MEDS ORDERED: Carvedilol12.5 MG PO (15:40)
[2024-07-05] MEDS ORDERED: ASCO500 PO (15:47)
[2024-07-05] MEDS ORDERED: FT SENNA-S 8.61 EACH PO (15:48)
[2024-07-05] MEDS ORDERED: FAMO20 PO (15:49)
[2024-07-05] MEDS ORDERED: Percocet 5-3251 EACH PO (15:52)
[2024-07-05 15:56] LABS: SARS-Cov-2 (COVID-19) PCR, MMC POSITIVE (NEGATIVE)
[2024-07-05] MEDS ORDERED: MIRALAX17 GM PO (15:58)
[2024-07-05] MEDS ORDERED: VISBIOME 112.51 EACH PO (15:59)
[2024-07-05] MEDS ORDERED: SULFAMETHOXAZO1 EAC1 PO (16:00)
[2024-07-05 16:02] VITALS: BP 120/82
--- NOTE | 2024-07-05 16:07 | NUR ---
COVID SWAB POSITIVE. ATTEMPT FOR CYCLE COUNT TO BE DONE, BUT UNABLE TO DO ON MACHINE.
--- NOTE | 2024-07-05 18:40 | NUR ---
DAY SHIFT SUMMARY: A&Ox4. PLEASANT AND COOPERATIVE WITH CARE LONG PAIN IS UNDER CONTROL. VERBALLY AGGRESSIVE WITH STAFF WHEN PAIN IS OUT OF PROPORTION. PREFERS MEDS WHOLE WITH FLUIDS. INCONTINENT. LARGE BM TODAY. ALTERNATED PRN IV FENTANYL AND PO OXYCODONE THROUGHOUT THE DAY WHICH SEEMED TO HELP HIM PARTICIPATE IN PT/OT. PLANS TO Tx TO SNF TOMORROW. COVID SWAB TODAY POSITIVE WITH CYCLE COUNT OF 36 (>30).
[2024-07-05 19:51] VITALS: BP 126/89
[2024-07-06 03:19] VITALS: BP 152/93
--- NOTE | 2024-07-06 03:53 | NUR ---
SHIFT SUMMARY 69 YR M ADMITTED ON 07/04/24. FULL CODE. NO ACUTE CHANGES THIS SHIFT. PAIN APPEARS TO BE WELL CONTROLLED THIS SHIFT AND PT SLEPT FOR SEVERAL HOURS AT A TIME THROUGHOUT THE NIGHT. HE HAS BEEN PLEASANT AND COOPERATIVE WITH CARE. NO AGGRESSIVE BEHAVIOR NOTED THIS SHIFT.
[2024-07-06 07:48] VITALS: BP 165/97
--- NOTE | 2024-07-06 15:26 | NUR ---
DISCHARGE NOTE: PATIENT BATHED AND PREPARED FOR DISCHARGE TO [facility]. HIS ZOEY WERE REMOVED AND NEW DRESSINGS APPLIED TO WOUNDS. PATIENT'S BELONGINGS GATHERED AND PROVIDED TO MEDICAL TRANSPORTER ALONG WITH DISCHARGE PAPERWORK. PATIENT 2-3 PERSON TO GET FROM BED TO WHEELCHAIR. NO SIGNS OR SYMPTOMS OF DISTRESS DURING DISCHARGE. REPORT GIVEN TO FREDDY LANDIN.
[2024-07-08] MEDS ORDERED: Calcium Carbon500 MG PO (12:01)
[2024-07-08] MEDS ORDERED: BISA10S PR (12:02)
[2024-07-08] MEDS ORDERED: OMEP20ER PO (12:04)
== END 2024-07-06 15:17 | DRG 551 ==
LOC: ER 00:54 → MEDS 00:55 → ENPENDDIS 07-05 17:34 → MEDS 07-06 15:17
PROVIDERS: Emergency Medicine; Family Medicine; Internal Medicine; ADMIT Internal Medicine
DX: S22.049A Unspecified fracture of fourth thoracic vertebra, initial encounter for closed fracture (principal); I26.99 Other pulmonary embolism without acute cor pulmonale; U07.1 COVID-19; T81.49XA Infection following a procedure, other surgical site, initial encounter; S22.43XA Multiple fractures of ribs, bilateral, initial encounter for closed fracture; N17.9 Acute kidney failure, unspecified; Y83.9 Surgical procedure, unspecified as the cause of abnormal reaction of the patient, or of later complication, without mention of misadventure at the time of the procedure; W18.30XA Fall on same level, unspecified, initial encounter; R91.1 Solitary pulmonary nodule; E53.8 Deficiency of other specified B group vitamins; G62.9 Polyneuropathy, unspecified; I10 Essential (primary) hypertension; D50.9 Iron deficiency anemia, unspecified; F41.9 Anxiety disorder, unspecified; F32.A Depression, unspecified; F17.210 Nicotine dependence, cigarettes, uncomplicated; E86.0 Dehydration; J44.9 Chronic obstructive pulmonary disease, unspecified; N40.0 Benign prostatic hyperplasia without lower urinary tract symptoms; K21.9 Gastro-esophageal reflux disease without esophagitis; I48.0 Paroxysmal atrial fibrillation; Z91.199 Patient's noncompliance with other medical treatment and regimen due to unspecified reason; Z88.8 Allergy status to other drugs, medicaments and biological substances; Z79.899 Other long term (current) drug therapy; Z79.2 Long term (current) use of antibiotics; Z87.442 Personal history of urinary calculi; Z87.19 Personal history of other diseases of the digestive system; Z98.890 Other specified postprocedural states
CPT/HCPCS: 71260; 74177; 80048; 80053; 80202; 85025; 85027; 93005; 93010; 96360; 96361; 96365; 96366; 96372; 96375; 96376; 97110; 97161; 97166; 97530; 97535; 99285-25; A9270; G0378; J0360; J1650; J2405; J3010; J3370; J7030; J7050; Q9967; U0002